=== PATIENT | female | born 1945 | race Caucasian/White ===

== ENCOUNTER 2016-12-21 09:08 | Inpatient (IN) | payer MEDICARE ==
[2016-12-21] VITALS (22 sets, daily range): BP systolic 102–183; BP diastolic 50–95; PULSE 50–62; RESP 16–20; TEMP 98.1–98.9; O2SAT 96–98
[~2016-12-21] VITALS: Ht 157.5 cm; Wt 77.9 kg
[~2016-12-21 09:08] MED LIST: ATEN-102 PO; CIPR500T4 PO; CLON0.2T PO; ENAL10 PO; MEVA40TA PO; OMEP20CA5 PO; PARO10TA PO
--- NOTE | 2016-12-21 09:25 | PD ---
HPI Chief Complaint: Chest Pain Time Seen by Provider: 09:14 Travel History International Travel<30 days: No Contact w/Intl Traveler<30days: No History of Present Illness HPI This is a 71-year-old female who presents to the emergency department with chest discomfort that started about an hour prior to arrival immediately after she heard news that she had a family member . She describes it as a tightness in the center of her chest, constant, moderate severity, nonradiating with no associated shortness of breath, nausea or diaphoresis. Patient reports her last stress test was 4-5 years ago. She does have a history of hypertension , hyperlipidemia, borderline diabetes and she has a significant smoking history. Both of her parents of heart disease at an older age. [facility] Past Medical History Arthritis: Yes Heart Rhythm Problems: No Cardiac Catheterization: No Cardiovascular Problems: Yes (DENIES) High Cholesterol: Yes Congestive Heart Failure: No Diabetes: No GERD: Yes Hypertension: Yes Menopausal: Yes Social History Alcohol Use: No Tobacco Use: No Allergies-Medications (Allergen,Severity, Reaction): Coded Allergies: No Known Allergies (Verified , 12/21/16) Reported Meds & Prescriptions Reported Meds & Active Scripts Active Reported Atenolol 50 Mg Tab 50 Mg PO DAILY Paroxetine (Paroxetine HCl) 10 Mg Tab Unknown Dose PO DAILY Lovastatin 20 Mg Tab Unknown Dose PO HS Enalapril (Enalapril Maleate) 20 Mg Tab Unknown Dose PO BID Clonidine (Clonidine HCl) 0.2 Mg Tab 0.2 Mg PO BID Omeprazole 20 Mg Tab Unknown Dose PO DAILY Review of Systems Except as stated in HPI: all other systems reviewed are Neg Physical Exam Narrative GENERAL:Well appearing, no acute distress SKIN: Focused skin assessment warm and dry. HEAD: Atraumatic. Normocephalic. EYES: Pupils equal and round. No injection or drainage. ENT: Moist mucous membranes NECK: Trachea midline. CARDIOVASCULAR: Regular rate and rhythm. No murmur appreciated. RESPIRATORY: Clear to auscultation. Breath sounds equal bilaterally. GASTROINTESTINAL: Abdomen soft, non-tender, nondistended. MUSCULOSKELETAL: No obvious deformities. NEUROLOGICAL: Awake and alert. No obvious cranial nerve deficits. Moving all extremities. PSYCHIATRIC: Appropriate mood and affect; insight and judgment normal. Data Data Last Documented VS Vital Signs Date Time Temp Pulse Resp B/P Pulse Ox O2 Delivery O2 Flow Rate FiO2 12/21/16 09:42 16 12/21/16 09:42 117/64 12/21/16 09:35 52 98 Room Air 12/21/16 09:08 98.6 Orders Electrocardiogram (12/21/16 09:22) Complete Blood Count With Diff (12/21/16 09:22) Comprehensive Metabolic Panel (12/21/16 09:22) Prothrombin Time / Inr (Pt) (12/21/16:22) Act Partial Throm Time (Ptt) (12/21/16:22) Troponin I (12/21/16 09:22) Chest, Single Ap (12/21/16:22) Ecg Monitoring (12/21/16:22) Bilateral Bp Monitoring (12/21/16:22) Iv Access Insert/Monitor (12/21/16:22) Oximetry (12/21/16:22) Oxygen Administration (12/21/16 09:22) Aspirin Chew (Aspirin Chew) (12/21/16 09:30) Sodium Chloride 0.9% Flush (Ns Flush) (12/21/16 09:30) Nitroglycerin Sl (Nitrostat Sl) (12/21/16 09:30) Enoxaparin Inj (Lovenox Inj) (12/21/16 10:45) Admit Order (Ed Use Only) (12/21/16 10:42) Labs Laboratory Tests Test 12/21/16 09:25 White Blood Count 6.8 TH/MM3 Red Blood Count 4.10 MIL/MM3 Hemoglobin 12.3 GM/DL Hematocrit 36.8 % Mean Corpuscular Volume 89.8 FL Mean Corpuscular Hemoglobin 30.0 PG Mean Corpuscular Hemoglobin 33.5 % Concent Red Cell Distribution Width 13.2 % Platelet Count 217 TH/MM3 Mean Platelet Volume 7.9 FL Neutrophils (%) (Auto) 67.4 % Lymphocytes (%) (Auto) 19.1 % Monocytes (%) (Auto) 9.7 % Eosinophils (%) (Auto) 3.1 % Basophils (%) (Auto) 0.7 % Neutrophils # (Auto) 4.6 TH/MM3 Lymphocytes # (Auto) 1.3 TH/MM3 Monocytes # (Auto) 0.7 TH/MM3 Eosinophils # (Auto) 0.2 TH/MM3 Basophils # (Auto) 0.0 TH/MM3 CBC Comment DIFF FINAL Differential Comment Prothrombin Time 10.2 SEC Prothromb Time International 0.9 RATIO Ratio Activated Partial 27.0 SEC Thromboplast Time Sodium Level 142 MEQ/L Potassium Level 4.3 MEQ/L Chloride Level 105 MEQ/L Carbon Dioxide Level 28.5 MEQ/L Anion Gap 9 MEQ/L Blood Urea Nitrogen 18 MG/DL Creatinine 0.96 MG/DL Estimat Glomerular Filtration 58 ML/MIN Rate Random Glucose 129 MG/DL Calcium Level 8.3 MG/DL Total Bilirubin 0.4 MG/DL Aspartate Amino Transf 24 U/L (AST/SGOT) Alanine Aminotransferase 27 U/L (ALT/SGPT) Alkaline Phosphatase 67 U/L Troponin I 0.23 NG/ML Total Protein 7.0 GM/DL Albumin 3.6 GM/DL [facility] Medical Decision Making Medical Screen Exam Complete: Yes Emergency Medical Condition: Yes Interpretation(s) EKG: Normal sinus rhythm with no ST changes Troponin is 0.23 Differential Diagnosis Hypertensive urgency, hypertensive emergency, nSTEMI, unstable angina, stress cardiomyopathy Narrative Course This is a 71-year-old female who presents to the emergency department with chest discomfort following finding out a family member had . She has multiple risk factors for heart disease including hyperlipidemia and hypertension as well as borderline diabetes. She was placed on a monitor and IV was established. EKG was reassuring. Labs are obtained which demonstrated troponin of 0.23. Patient was markedly hypertensive and given nitroglycerin which improved her blood pressure. Her troponin may be elevated in the setting of hypertensive emergency but this also may reflect a true nSTEMI or stress cardiomyopathy. Patient will be admitted for further cardiac management. She was given aspirin in the emergency department. I spoke to Dr. Isbell and Dr. Chan who requested that she be transferred down to the [facility] for possible catheterization. Physician Communication Physician Communication Discussed with Dr. Isbell and Dr. Chan Diagnosis Primary Impression: Hypertensive emergency Admitting Information Admitting Physician Requests: Admit Lana Macias MD Dec 21, 2016 09:25
[2016-12-21] MEDS ORDERED: ASPIRIN 81 MG CHEW TAB PO ONE (09:30)
[2016-12-21] MEDS ORDERED: SODIUM CHLORIDE 0.9% FLUSH 10 ML FLUSH IVF PRN (09:30)
[2016-12-21 09:34] LABS: AUTOMATED NEUTROPHIL # 4.6 TH/MM3 (1.8-7.7); BASOPHIL % 0.7 % (0.0-2.0); EOSINOPHIL # 0.2 TH/MM3 (0-0.4); EOSINOPHIL % 3.1 % (0.0-4.0); HEMATOCRIT 36.8 % (35.0-46.0); HEMO FLAGS DIFF FINAL; LYMPH % 19.1 % (9.0-44.0); LYMPHOCYTE # 1.3 TH/MM3 (1.0-4.8); MEAN CELL VOLUME 89.8 FL (80.0-100.0); MEAN CORPUSCULAR HGB CONC 33.5 % (32.0-36.0); MONO % 9.7 % (0.0-8.0); NEUT % 67.4 % (16.0-70.0); PLATELET COUNT 217 TH/MM3 (150-450); RED CELL DISTRIBUTION WIDTH 13.2 % (11.6-17.2); WHITE BLOOD COUNT 6.8 TH/MM3 (4.0-11.0)
[2016-12-21] MEDS: NITROGLYCERIN 0.4 MG SL 25 TABS/BTL SL SCH ×3 (09:35→09:40)
[2016-12-21] MEDS ORDERED: OMEP20TA PO (09:45)
[2016-12-21] MEDS ORDERED: CLON0.2T PO (09:45)
[2016-12-21] MEDS ORDERED: ATEN50TA PO (09:45)
[2016-12-21] MEDS ORDERED: PARO10TA2 PO (09:45)
[2016-12-21] MEDS ORDERED: ENAL20TA PO (09:45)
[2016-12-21] MEDS ORDERED: LOVA20TA PO (09:45)
[2016-12-21 09:51] LABS: INTERNATIONAL NORMALIZED RATIO 0.9 RATIO; PROTHROMBIN TIME - PATIENT 10.2 SEC (9.8-11.6)
--- NOTE | 2016-12-21 10:05 | RADHPO ---
EXAM DATE/TIME: 12/21/2016 09:34 [place] COMPARISON: CHEST SINGLE AP, February 18, 2012, 17:21. INDICATIONS : Sudden onset of chest pain today MEDICAL HISTORY : Hypertension. SURGICAL HISTORY : None. ENCOUNTER: Initial ACUITY: 1 day PAIN SCORE: 8/10 LOCATION: Bilateral chest FINDINGS: The lungs are under aerated with minimal bibasilar parenchymal changes. The heart and pulmonary vascu larity are normal. The portion of the bony skeleton visualized is unremarkable. CONCLUSION: Under aerated otherwise negative. Logan Morel MD FACR on December 21, 2016 at 10:02 Board Certified Radiologist. This report was verified electronically.
[2016-12-21 10:15] LABS: CHLORIDE 105 MEQ/L (98-107); POTASSIUM 4.3 MEQ/L (3.5-5.1); SODIUM (NA) 142 MEQ/L (136-145)
[2016-12-21 10:21] LABS: ANION GAP 9 MEQ/L (5-15); BICARBONATE 28.5 MEQ/L (21.0-32.0); BLOOD UREA NITROGEN 18 MG/DL (7-18)
[2016-12-21 10:24] LABS: ALT (GPT) 27 U/L (10-53); AST (GOT) 24 U/L (15-37)
[2016-12-21 10:25] LABS: GLOMERULAR FILTRATION RATE 58 ML/MIN (>89); TOTAL BILIRUBIN ADULT 0.4 MG/DL (0.2-1.0)
[2016-12-21 10:27] LABS: ALKALINE PHOSPHATASE 67 U/L (45-117)
[2016-12-21] MEDS ORDERED: SODIUM CHLORIDE 0.9% FLUSH 10 ML FLUSH IV FLUSH PRN (10:45)
[2016-12-21] MEDS ORDERED: NITROGLYCERIN 0.4 MG SL 25 TABS/BTL SL PRN (10:45)
[2016-12-21] MEDS ORDERED: DEXTROSE 50% IN WATER 50 ML VIAL(D50) IV PUSH PRN ×2 (10:45→16:00)
[2016-12-21] MEDS ORDERED: GLUCAGON 1 MG/ML VIAL OTHER PRN ×2 (10:45→16:00)
[2016-12-21] MEDS ORDERED: ENOXAPARIN SODIUM 80 MG/0.8 ML SYRINGE SQ ONE (10:45)
[2016-12-21] MEDS ORDERED: INSULIN ASPART SUPPLEMENTAL SCALE SQ SCH (11:00)
[2016-12-21] MEDS ORDERED: MORPHINE SULFATE 4 MG/ML INJ IV PRN (11:00)
--- NOTE | 2016-12-21 15:20 | MB ---
cc: WDAE LICEA M.D. DATE OF CONSULTATION: 12/21/2016 REASON FOR CONSULTATION Angina. HISTORY OF PRESENT ILLNESS Mrs. White is a 71-year-old female with a history of high blood pressure, hyperlipidemia, she has a previous hospitalization in 2011 due to chest pain, nuclear stress study at that time was negative for ischemia. 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 Refers some shortness of breath and chest tightness in the past. She received the news of her Godmother passing away. She was having chest tightness and shortness of breath. She was admitted to the emergency room. Troponin was 0.23. I was consulted for further evaluation and management. The chart was reviewed. The patient was evaluated. ALLERGIES NONE REPORTED. SOCIAL HISTORY The patient stopped smoking 14 years ago. FAMILY HISTORY Noncontributory to her current medical condition. MEDICATIONS 1. Atenolol 10 mg a day. 2. Paroxetine 10 mg a day. 3. Lovastatin 20 mg a day. 4. Enalapril 20 mg twice a day. 5. Clonidine. 6. Omeprazole. REVIEW OF SYSTEMS Currently she refer no chest pain, no chest discomfort, no shortness of breath, no fever. PHYSICAL EXAMINATION GENERAL: Alert, fully oriented. She is very calm at this point. VITAL SIGNS: Blood pressure 134/71, on admission blood pressure was 182/72, pulse 58, respiratory rate 18. LUNGS: Ventilated. CARDIOVASCULAR: S1, S2. No gallop, no murmur. ABDOMEN: Soft. No mass. No bruit. EXTREMITIES: No edema. Electrocardiogram: Sinus rhythm. No acute ST and T-wave changes. LABORATORY DATA Potassium 4.3, creatinine 0.96, troponin 0.23, INR 0.9, hemoglobin 12.3. ASSESSMENT AND RECOMMENDATIONS Mrs. White has apparent angina. She has previous shortness of breath and chest discomfort at home on activity. She has a history of high blood pressure, hyperlipidemia, she is morbidly obese. There are no acute ST changes. At this point, I am going to wait for the next set of troponins. If there is no significant increase in troponin, then she will need a nuclear stress test in the morning. Case extensively discussed with her. MD ROHINI Chaves/BJF /1:25 PM /3:04 PM
[2016-12-21] MEDS: INSULIN NovoLIN REGULAR SUPPLEMENTAL SCALE SQ SCH ×2 (16:00→20:22)
[2016-12-21] MEDS ORDERED: ATENOLOL 50 MG TAB PO SCH (16:00)
--- NOTE | 2016-12-21 16:04 | HHI.HP ---
[facility] Shira Draper MD Admission Diagnosis hypertensive emergency Diagnoses: Chief Complaint: Chest pain Travel History International Travel<30 Days: No Contact w/Intl Traveler <30 Da: No Traveled to Known Affected Are: No History of Present Illness 71 years old female presented to the [place] ED with a complaint of chest pain/tightness which is central 8-9 out of 10, constant, did not until improved until patient had nitroglycerin. No nausea or vomiting lightheaded short of breath or diaphoresis. Patient attributed this to a stressful event when she know about a in the family. No radiation no alleviating or exacerbating factor. In ED she was found to have a blood pressure of 183/72. Patient has history of hyperlipidemia hypertension and diet-controlled diabetes mellitus (she refused to be placed on medication by her PCP) patient denied any orthopnea PND, abdominal pain diarrhea constipation . Patient had a stress test in 2011 in January which showed no significant reversibility with EF 68%, however the Tab wrote a call part was not completed due to not reaching maximum heart rate Review of Systems All 10 systems reviewed and was positive for what is mentioned in history of present illness otherwise negative Past Family Social History Past Medical History Hypertension Hyperlipidemia Diabetes mellitus diet control Allergies: Coded Allergies: No Known Allergies (Verified , 12/21/16) Family History Mother and father had coronary artery disease heart hacker father had it in his 70s her mom had congestive heart failure Social History Quit smoking around 6 years ago before that she smoked 2 pack for over 30 years , no alcohol or illicit drug abuse Physical Exam Vital Signs Vital Signs Date Time Temp Pulse Resp B/P Pulse Ox O2 Delivery O2 Flow Rate FiO2 12/21/16 15:36 158/95 12/21/16 15:35 98.6 58 17 174/86 96 12/21/16 14:35 58 12/21/16 13:30 59 12/21/16 13:04 98.9 58 19 134/71 96 12/21/16 12:10 52 16 165/76 96 12/21/16 10:40 53 16 168/76 97 Room Air 12/21/16 09:42 16 12/21/16 09:42 117/64 12/21/16 09:35 52 16 183/72 98 Room Air 171/81 12/21/16 09:08 98 Room Air 12/21/16 09:08 16 98 Room Air 12/21/16 09:08 98.6 53 16 183/72 98 12/21/16 09:08 Room Air Physical Exam GENERAL: This is a well-nourished, well-developed patient, in no apparent distress. SKIN: No rashes, warm and dry HEAD: Atraumatic. Normocephalic. EYES: Pupils equal round and reactive. Extraocular motions intact. No scleral icterus. ENT: Nose without bleeding, or drainage, Airway patent. NECK: Trachea midline. Supple CARDIOVASCULAR: Regular rate and rhythm without murmurs, gallops, or rubs. RESPIRATORY: Fair air entry bilaterally. No wheezes, rales, or rhonchi. GASTROINTESTINAL: Abdomen soft, non-tender, nondistended. Positive bowel sounds MUSCULOSKELETAL: Extremities without clubbing, cyanosis, or edema. Pedal pulses appreciated NEUROLOGICAL: Awake and alert. Moves all extremity. Normal speech.no focal neurological deficit Laboratory Laboratory Tests Test 12/21/16 09:25 White Blood Count 6.8 Red Blood Count 4.10 Hemoglobin 12.3 Hematocrit 36.8 Mean Corpuscular Volume 89.8 Mean Corpuscular Hemoglobin 30.0 Mean Corpuscular Hemoglobin 33.5 Concent Red Cell Distribution Width 13.2 Platelet Count 217 Mean Platelet Volume 7.9 Neutrophils (%) (Auto) 67.4 Lymphocytes (%) (Auto) 19.1 Monocytes (%) (Auto) 9.7 Eosinophils (%) (Auto) 3.1 Basophils (%) (Auto) 0.7 Neutrophils # (Auto) 4.6 Lymphocytes # (Auto) 1.3 Monocytes # (Auto) 0.7 Eosinophils # (Auto) 0.2 Basophils # (Auto) 0.0 CBC Comment DIFF FINAL Differential Comment Prothrombin Time 10.2 Prothromb Time International 0.9 Ratio Activated Partial 27.0 Thromboplast Time Sodium Level 142 Potassium Level 4.3 Chloride Level 105 Carbon Dioxide Level 28.5 Anion Gap 9 Blood Urea Nitrogen 18 Creatinine 0.96 Estimat Glomerular Filtration 58 Rate Random Glucose 129 Calcium Level 8.3 Total Bilirubin 0.4 Aspartate Amino Transf 24 (AST/SGOT) Alanine Aminotransferase 27 (ALT/SGPT) Alkaline Phosphatase 67 Troponin I 0.23 Total Protein 7.0 Albumin 3.6 Result Diagram: 12/21/1692412/21/16924 Imaging Last Impressions Chest X-Ray 12/21/16921 Signed Impressions: Service Date/Time: Wednesday, December 21, 2016 09:34 - CONCLUSION: Under aerated otherwise negative. Logan Morel MD FACR EKG with sinus rhythm first-degree AV block borderline, nonspecific ST changes Assessment and Plan Assessment and Plan 71 years old female presented to the ED after having a stressful that family event with Hypertensive urgency: Relatively improved Acute atypical chest pain rule out ACS versus due to above History of HTN History of hyperlipidemia Diabetes mellitus diet controlled DVT prophylaxis Plan: Admitted to inpatient, cardiology consulted, requested transfer to [facility] Aspirin given, nitroglycerin sublingual Cycle cardiac enzyme 3 times first set 0.23 Personally reviewed EKG as above no ST changes significant Lovenox full anticoagulation Dr. Soria embedded systems developer following ISS and Accu-Chek, will check A1c Resume home meds for hypertension include clonidine, enalapril, add hydralazine when necessary, hold atenolol due to bradycardia in the 50s Physician Certification 2 Midnight Certification Type: Admission for Inpatient Services Order for Inpatient Services The services are ordered in accordance with Medicare regulations or non- Medicare payer requirements, as applicable. In the case of services not specified as inpatient-only, they are appropriately provided as inpatient services in accordance with the 2-midnight benchmark. Estimated LOS (days): 2 days is the estimated time the patient will need to remain in the hospital, assuming treatment plan goals are met and no additional complications. Post-Hospital Plan: Not yet determined Bri De Jesus MD Dec 21, 2016 16:04
[2016-12-21] MEDS ORDERED: hydrALAZINE HCL 20 MG/ML VIAL IV PUSH PRN (16:15)
[2016-12-21] MEDS: cloNIDine HCL 0.2 MG TAB PO SCH ×2 (16:18→19:49)
[2016-12-21] MEDS: ENALAPRIL MALEATE 5 MG TAB PO SCH ×2 (16:18→19:50)
[2016-12-21 17:05] LABS: CKMB 13.8 NG/ML (0.5-3.6)
[2016-12-21] MEDS ORDERED: NITROGLYCERIN/DEXTROSE 5% 250 ML for chest pain IV SCH (17:45)
[2016-12-21] MEDS: SODIUM CHLORIDE 0.9% FLUSH 10 ML FLUSH IV FLUSH SCH (19:50)
[2016-12-21] MEDS: ATORVASTATIN 40 MG TAB PO SCH (19:50)
[2016-12-21] MEDS: ALPRAZolam 0.25 MG TAB PO PRN (20:22)
[2016-12-21] MEDS: ENOXAPARIN SODIUM 100 MG/ML SYRINGE SQ SCH (20:22)
[2016-12-21] MEDS ORDERED: cloNIDine HCL 0.2 MG TAB PO SCH (21:00)
[2016-12-21] MEDS ORDERED: ENALAPRIL MALEATE 5 MG TAB PO SCH (21:00)
[2016-12-21 22:18] LABS: CREATINE KINASE 180 U/L (26-192)
[2016-12-21 22:37] LABS: CKMB 7.8 NG/ML (0.5-3.6)
--- NOTE | 2016-12-21 23:56 | EKG ---
Date Performed: 12/21/2016 Time Performed: 15:53:12 PTAGE: 71 years EKG: Sinus bradycardia with 1st degree A-V block. Abnormal ECG PREVIOUS TRACING : 12/21/2016 09.10 DOCTOR: Jaime Chan Interpretating Date/Time 12/21/2016 23:55:45
[2016-12-22] VITALS (24 sets, daily range): BP systolic 114–140; BP diastolic 57–81; PULSE 48–61; RESP 16–20; TEMP 97.9–98.6; O2SAT 95–97
--- NOTE | 2016-12-22 00:11 | EKG ---
Date Performed: 12/21/2016 Time Performed: 09:10:06 PTAGE: 71 years EKG: Sinus bradycardia with borderline 1st degree A-V block. Septal ST-T changes are nonspecific Borderline ECG PREVIOUS TRACING : 02/19/2012 03.51 DOCTOR: Jaime Chan Interpretating Date/Time 12/22/2016 00:09:03
[2016-12-22] MEDS: INSULIN NovoLIN REGULAR SUPPLEMENTAL SCALE SQ SCH ×4 (06:42→20:19)
[2016-12-22 07:02] LABS: AUTOMATED NEUTROPHIL # 3.2 TH/MM3 (1.8-7.7); BASOPHIL % 0.5 % (0.0-2.0); EOSINOPHIL # 0.2 TH/MM3 (0-0.4); EOSINOPHIL % 3.4 % (0.0-4.0); HEMATOCRIT 34.9 % (35.0-46.0); HEMO FLAGS DIFF FINAL; LYMPH % 30.3 % (9.0-44.0); LYMPHOCYTE # 1.7 TH/MM3 (1.0-4.8); MEAN CELL VOLUME 89.9 FL (80.0-100.0); MEAN CORPUSCULAR HEMOGLOBIN 29.7 PG (27.0-34.0); MEAN CORPUSCULAR HGB CONC 33.1 % (32.0-36.0); MONO % 9.3 % (0.0-8.0); NEUT % 56.5 % (16.0-70.0); PLATELET COUNT 191 TH/MM3 (150-450); RED BLOOD COUNT 3.88 MIL/MM3 (4.00-5.30); RED CELL DISTRIBUTION WIDTH 13.9 % (11.6-17.2); WHITE BLOOD COUNT 5.6 TH/MM3 (4.0-11.0)
[2016-12-22 07:09] LABS: BICARBONATE 29.2 MEQ/L (21.0-32.0); POTASSIUM 4.1 MEQ/L (3.5-5.1)
[2016-12-22 07:10] LABS: HDL CHOLESTEROL 39.4 MG/DL (40.0-60.0)
[2016-12-22] MEDS: SODIUM CHLORIDE 0.9% FLUSH 10 ML FLUSH IV FLUSH SCH ×2 (08:40→20:18)
[2016-12-22] MEDS: ENALAPRIL MALEATE 5 MG TAB PO SCH ×2 (08:40→20:18)
[2016-12-22] MEDS: cloNIDine HCL 0.2 MG TAB PO SCH ×2 (08:40→20:18)
[2016-12-22] MEDS ORDERED: ASPIRIN EC 325 MG TABEC PO SCH (09:00)
[2016-12-22] MEDS ORDERED: ATENOLOL 50 MG TAB PO SCH (09:00)
[2016-12-22] MEDS ORDERED: INFLUENZA VIRUS VACCINE (QUADRIVALENT) 0.5 ML SYR IM ONE (10:00)
[2016-12-22] MEDS: ENOXAPARIN SODIUM 100 MG/ML SYRINGE SQ SCH ×2 (11:18→20:18)
[2016-12-22 11:23] LABS: HEMOGLOBIN A1b 1.1 %; HEMOGLOBIN Ao 84.4 %; HEMOGLOBIN LA1C 1.7 %; HEMOGLOBIN P3 3.8 %
--- NOTE | 2016-12-22 13:03 | HHI.PR ---
Subjective Remarks No chest pain Objective Vital Signs Date Time Temp Pulse Resp B/P Pulse Ox O2 Delivery O2 Flow Rate FiO2 12/22/16 12:00 54 12/22/16 11:00 56 12/22/16 11:00 97.9 55 16 127/72 97 12/22/16 10:00 48 12/22/16 09:00 50 12/22/16 08:00 50 12/22/16 07:15 98.3 52 17 140/81 96 12/22/16 07:00 96 Room Air 12/22/16 07:00 51 12/22/16 06:00 55 12/22/16 05:00 53 12/22/16 04:00 54 12/22/16 04:00 Room Air 12/22/16 04:00 98.1 54 18 133/64 97 12/22/16 03:00 54 12/22/16 02:00 55 12/22/16 01:00 54 12/22/16 00:00 Room Air 12/22/16 00:00 48 12/22/16 00:00 98.6 48 20 124/64 97 12/21/16 23:00 50 12/21/16 22:00 51 12/21/16 21:00 52 12/21/16 20:00 98.1 56 20 132/70 96 12/21/16 20:00 56 12/21/16 18:37 141/62 12/21/16 18:17 58 12/21/16 18:07 52 12/21/16 18:06 102/51 12/21/16 17:53 111/50 12/21/16 17:29 53 12/21/16 16:10 62 12/21/16 15:36 158/95 12/21/16 15:35 98.6 58 17 174/86 96 12/21/16 15:00 55 12/21/16 14:35 58 12/21/16 13:30 59 12/21/16 13:04 98.9 58 19 134/71 96 I/O 12/21/16 12/21/16 12/21/16 12/22/16 12/22/16 12/22/16 07:00 15:00 23:00 07:00 15:00 23:00 Intake Total 480 ml 255 ml 0 ml Output Total 600 ml Balance 480 ml -345 ml 0 ml Intake Oral 480 ml 240 ml 0 ml IV Total 15 ml Output Urine Total 600 ml # Voids 2 # Bowel Movements 0 Result Diagram: 12/22/16 0544 12/22/16 0544 Imaging Alert, fully oriented Lungs: ventilated Heart: S1, S2 regular abdomen: soft, no mass Ext: no edema Last Impressions Chest X-Ray 12/21/16 0922 Signed Impressions: Service Date/Time: Wednesday, December 21, 2016 09:34 - CONCLUSION: Under aerated otherwise negative. Logan Morel MD FACR Current Medications Medications (Trade) Dose Ordered Sig/Rey Route Start Time Stop Time Status Last Admin (NS Flush) 2 ml BID IV FLUSH 12/21/16 21:00 12/22/16 08:40 (NS Flush) 2 ml UNSCH PRN IV FLUSH 12/21/16 10:45 (Lovenox Inj) 75 mg Q12H SQ 12/21/16 22:00 12/22/16 11:18 (Nitrostat Sl) 0.4 mg Q5M PRN SL 12/21/16 10:45 (Morphine Inj) 2 mg Q30M PRN IV 12/21/16 11:00 (Xanax) 0.25 mg Q8HR PRN PO 12/21/16 11:00 12/21/16 20:22 (Lipitor) 40 mg HS PO 12/21/16 21:00 12/21/16 19:50 (Tenormin) 50 mg DAILY PO 12/21/16 16:00 Hold (Catapres) 0.2 mg BID PO 12/21/16 15:45 12/22/16 08:40 (Vasotec) 5 mg BID PO 12/21/16 15:45 12/22/16 08:40 (D50w (Vial) Inj) 25 ml UNSCH PRN IV PUSH 12/21/16 16:00 (Glucagon Inj) 1 mg UNSCH PRN OTHER 12/21/16 16:00 Hydralazine HCl 10 mg 10 mg Q6H PRN IV PUSH 12/21/16 16:15 (Nitroglycerin-Dextrose Inj) 250 ml @ 0 mls/hr TITRATE IV 12/21/16 17:45 12/21/16 17:49 (Aspirin Chew) 81 mg DAILY CHEW 12/23/16 09:00 Assessment and Plan Problem List: (1) Hypertensive emergency Status: Acute Plan: SBP 126. Control On IV nitro (2) IA, acute, non ST segment elevation Status: Acute Plan: No chest pain today. Troponin increased to over 6.5. Case discussed yesterday with Dr Child who recommended nitro IV. He has been consulted. Patient stable. [facility] tomorrow Case discussed with patient also Jaime Chan MD Dec 22, 2016 13:03
--- NOTE | 2016-12-22 14:02 | HHI.PR ---
Subjective Remarks Resting in bed no chest anal short of breath Troponin increased significantly to 6 Patient seen by system operation superintendent plan for left heart catheter tomorrow Objective Vitals Vital Signs Date Time Temp Pulse Resp B/P Pulse Ox O2 Delivery O2 Flow Rate FiO2 12/22/16 13:00 55 12/22/16 12:00 54 12/22/16 11:00 56 12/22/16 11:00 97.9 55 16 127/72 97 12/22/16 10:00 48 12/22/16 09:00 50 12/22/16 08:00 50 12/22/16 07:15 98.3 52 17 140/81 96 12/22/16 07:00 96 Room Air 12/22/16 07:00 51 12/22/16 06:00 55 12/22/16 05:00 53 12/22/16 04:00 54 12/22/16 04:00 Room Air 12/22/16 04:00 98.1 54 18 133/64 97 12/22/16 03:00 54 12/22/16 02:00 55 12/22/16 01:00 54 12/22/16 00:00 Room Air 12/22/16 00:00 48 12/22/16 00:00 98.6 48 20 124/64 97 12/21/16 23:00 50 12/21/16 22:00 51 12/21/16 21:00 52 12/21/16 20:00 98.1 56 20 132/70 96 12/21/16 20:00 56 12/21/16 18:37 141/62 12/21/16 18:17 58 12/21/16 18:07 52 12/21/16 18:06 102/51 12/21/16 17:53 111/50 12/21/16 17:29 53 12/21/16 16:10 62 12/21/16 15:36 158/95 12/21/16 15:35 98.6 58 17 174/86 96 12/21/16 15:00 55 12/21/16 14:35 58 I/O 12/21/16 12/21/16 12/21/16 12/22/16 12/22/16 12/22/16 07:00 15:00 23:00 07:00 15:00 23:00 Intake Total 480 ml 255 ml 0 ml Output Total 600 ml Balance 480 ml -345 ml 0 ml Intake Oral 480 ml 240 ml 0 ml IV Total 15 ml Output Urine Total 600 ml # Voids 2 # Bowel Movements 0 Result Diagram: 12/22/1654312/22/16543 Objective Remarks GENERAL: This is a well-nourished, well-developed patient, in no apparent distress. SKIN: No rashes, warm and dry HEAD: Atraumatic. Normocephalic. EYES: Pupils equal round and reactive. Extraocular motions intact. No scleral icterus. ENT: Nose without bleeding, or drainage, Airway patent. NECK: Trachea midline. Supple CARDIOVASCULAR: Regular rate and rhythm without murmurs, gallops, or rubs. RESPIRATORY: Fair air entry bilaterally. No wheezes, rales, or rhonchi. GASTROINTESTINAL: Abdomen soft, non-tender, nondistended. Positive bowel sounds MUSCULOSKELETAL: Extremities without clubbing, cyanosis, or edema. Pedal pulses appreciated NEUROLOGICAL: Awake and alert. Moves all extremity. Normal speech.no focal neurological deficit A/P Assessment and Plan 71 years old female presented to the ED after having a stressful that family event with Hypertensive urgency: Resolved Non-STEMI with elevated troponin History of HTN History of hyperlipidemia Diabetes mellitus diet controlled DVT prophylaxis Plan: Cycle cardiac enzyme 3 times : 0.23>>6.03>>2.35 Appreciated cardiology consult, requested transfer to [facility] Dr. Soria system operation superintendent following he discuss with Dr. Child plan for left heart catheter in a.m. Aspirin given, nitroglycerin sublingual Personally reviewed EKG as above no ST changes significant Lovenox full anticoagulation ISS and Accu-Chek, will check A1c Resume home meds for hypertension include clonidine, enalapril, add hydralazine when necessary, hold atenolol due to bradycardia in the 50s Bri De Jesus MD Dec 22, 2016 14:02
[2016-12-22] MEDS: ATORVASTATIN 40 MG TAB PO SCH (20:18)
[2016-12-22] MEDS: ALPRAZolam 0.25 MG TAB PO PRN (20:18)
[2016-12-23] VITALS (23 sets, daily range): BP systolic 113–152; BP diastolic 57–84; PULSE 51–75; RESP 18; TEMP 97.6–98.2; O2SAT 95–98
--- NOTE | 2016-12-23 05:50 | MB ---
cc: CORY REZA SAMIRA MD DATE OF CONSULTATION December 22, 2016 PRIMARY CARE PHYSICIAN Shira Draper MD REASON FOR INTERVENTIONAL CARDIOLOGY CONSULTATION N-STEMI, for consideration of cardiac catheterization. HISTORY OF PRESENT ILLNESS Sybil White is a pleasant 71-year-old female who originally presented to [facility] Emergency Room with a complaint of chest pain and tightness. At that time the pain was 8 out of 10 and constant. The patient was given one nitroglycerin and this started relieving the pain. She denies nausea, vomiting, lightheadedness, shortness of breath or diaphoresis with the episode. She attributed the chest pain to undergoing a stressful event as she recently had a in the family. On arrival to the emergency room, she was found to have a blood pressure of 183/72. She was admitted with hypertensive urgency. Firs troponin was 0.23 and then this increased to 6.03 before decreasing back to 2.93. Because of the elevation of the troponins and the patient's chest pain, I was asked for consideration of cardiac catheterization. PAST MEDICAL HISTORY 1. Hypertension. 2. Hyperlipidemia. 3. Diabetes mellitus, diet controlled. PAST SURGICAL HISTORY Denies. ALLERGIES No known drug allergies. MEDICATIONS 1. Enalapril 20 mg b.i.d. 2. Paroxetine 10 mg daily 3. Atenolol 50 mg daily 4. Clonidine 0.2 mg b.i.d. 5. Lovastatin 20 mg every night 6. Omeprazole 20 mg daily. SOCIAL HISTORY The patient previously smoked but quit around 6 years ago. Before that she smoke two packs a day for 30 years. She denies alcohol or illicit drug abuse. FAMILY HISTORY Mother and father had coronary artery disease. Father had a heart attack in his 70s and her mother had a history of congestive heart failure. REVIEW OF SYSTEMS Fourteen systems were reviewed including osteopathic pertinent positives and negatives above, otherwise negative. PHYSICAL EXAMINATION VITAL SIGNS: Temperature 97.8, heart rate 54, blood pressure 127/72, respirations 16, pulse ox 97% on room air. IN GENERAL: The patient appears well, in no acute distress, alert awake and oriented x 3. Extraocular muscles intact. Mucous membranes moist. NECK: Supple. No JVD at 45 degrees. No carotid bruits heard bilaterally. Carotid upstroke is brisk in nature. HEART: Regular in rate and rhythm. Positive first and second heart sounds with no noted murmurs, gallops or rubs. PMI is nondisplaced. LUNGS: Clear to auscultation bilaterally. No wheezes, rales or rhonchi. ABDOMEN: Soft, nontender, nondistended. No organomegaly noted. EXTREMITIES: No clubbing, cyanosis or edema. Femoral and distal pulses intact bilaterally. NEUROLOGIC: No focal deficits. SKIN: Warm, dry and intact. OSTEOPATHIC EXAM: No kyphoscoliosis, lordosis or paraspinal tender points. LABORATORY FINDINGS Hemoglobin 11.6, hematocrit 34.9, platelets 191. Potassium 4.1, BUN 14, creatinine 0.84. Hemoglobin A1c 6.4. Troponin increasing to 6.03. Total cholesterol 144, LDL 81, HDL 39.4, triglycerides 105. ELECTROCARDIOGRAM (December 21, 2016 at 15:53) Sinus bradycardia with first degree AV block, nonspecific ST and T-wave changes. IMPRESSION 1. NSTEMI. Possible Type 1 versus Type 2. 2. Hypertensive urgency. 3. Chronic hypertensive heart disease. 4. History of hyperlipidemia. 5. History of diabetes mellitus which is diet-controlled. 6. Remote history of tobacco abuse. RECOMMENDATIONS 1. Ms. White appears to have an elevation of her troponin and although this may be secondary to hypertensive urgency, my concern is with the significance of the elevation as well as her chest pain. Because of this, I feel that we should rule out underlying coronary artery disease. 2. We will plan for cardiac catheterization in the morning. She will be left n.p.o. after midnight. 3. The risks, benefits and alternatives were explained to her and she consents as such. 4. We will check a 2-D echo to look at her overall left ventricular function, cardiac structure and possible valvopathies. 5. Further recommendations will be made after coronary visualization. Thank you for allowing me to see Sybil White. If there are any questions, please do not hesitate to call. Cory Reza DO VGP/SSB /12:49 PM /5:35 AM
[2016-12-23] MEDS: INSULIN NovoLIN REGULAR SUPPLEMENTAL SCALE SQ SCH ×4 (06:10→20:31)
[2016-12-23 06:20] LABS: AUTOMATED NEUTROPHIL # 3.7 TH/MM3 (1.8-7.7); BASOPHIL % 0.6 % (0.0-2.0); EOSINOPHIL # 0.3 TH/MM3 (0-0.4); EOSINOPHIL % 4.4 % (0.0-4.0); HEMATOCRIT 36.7 % (35.0-46.0); HEMO FLAGS DIFF FINAL; LYMPH % 25.6 % (9.0-44.0); LYMPHOCYTE # 1.6 TH/MM3 (1.0-4.8); MEAN CORPUSCULAR HEMOGLOBIN 29.4 PG (27.0-34.0); MEAN CORPUSCULAR HGB CONC 32.6 % (32.0-36.0); MONO % 9.3 % (0.0-8.0); NEUT % 60.1 % (16.0-70.0); PLATELET COUNT 197 TH/MM3 (150-450); RED BLOOD COUNT 4.08 MIL/MM3 (4.00-5.30); WHITE BLOOD COUNT 6.1 TH/MM3 (4.0-11.0)
[2016-12-23 06:45] LABS: BICARBONATE 29.6 MEQ/L (21.0-32.0)
[2016-12-23] MEDS: SODIUM CHLORIDE 0.9% FLUSH 10 ML FLUSH IV FLUSH SCH ×2 (07:15→20:31)
[2016-12-23] MEDS ORDERED: IOHEXOL 350 MG/ML 100 ML BTL (for Cath Lab) OTHER ONE (08:18)
[2016-12-23] MEDS ORDERED: HEPARIN-NS/PF INJ 500 ML ONE (08:21)
[2016-12-23] MEDS ORDERED: VERAPAMIL HCL 5 MG/2 ML VIAL ONE (08:36)
[2016-12-23] MEDS ORDERED: MIDAZOLAM HCL 2 MG/2 ML VIAL ONE (08:36)
[2016-12-23] MEDS ORDERED: HEPARIN SODIUM - IV 10,000 UNITS/10 ML VIAL ONE (08:37)
[2016-12-23] MEDS ORDERED: NITROGLYCERIN INJ 5 ML ONE (08:37)
[2016-12-23] MEDS ORDERED: ADENOSINE STRESS TEST INJ 90 MG/30 ML VIAL ONE (09:27)
[2016-12-23] MEDS ORDERED: hydrALAZINE HCL 20 MG/ML VIAL ONE (09:36)
[2016-12-23] MEDS ORDERED: NITROGLYCERIN 0.4 MG SL 25 TABS/BTL SL ONE (09:51)
[2016-12-23] MEDS: ENOXAPARIN SODIUM 100 MG/ML SYRINGE SQ SCH ×2 (10:00→20:30)
[2016-12-23] MEDS: ASPIRIN 81 MG CHEW TAB CHEW SCH (10:16)
[2016-12-23] MEDS: cloNIDine HCL 0.2 MG TAB PO SCH ×2 (10:16→20:29)
[2016-12-23] MEDS: ENALAPRIL MALEATE 5 MG TAB PO SCH (10:16)
--- NOTE | 2016-12-23 12:11 | PD.CONS ---
History of Present Illness Service CT Surgery Consult Requested By Dr. Child Reason for Consult NSTEMI, multivessel CAD Primary Care Physician Shira Draper MD Diagnoses: (1) DC, acute, non ST segment elevation (2) CAD (coronary artery disease) History of Present Illness 71 y/o female presents with malignant hypertension, chest tightness, dyspnea. She ruled in for NSTEMI. She had a negative stress test in the past, but was found tohave multivessel CAD today on [facility]. She is being considered for CABG. She denies PND, orthopnea, syncope, palpitations. Review of Systems Constitutional: COMPLAINS OF: Diaphoretic episodes, Fatigue, DENIES: Fever, Weight gain, Weight loss, Chills, Dizziness, Change in appetite, Night Sweats Endocrine: DENIES: Abnorml menstrual pattern, Heat/cold intolerance, Polydipsia , Polyuria, Polyphagia Eyes: DENIES: Blurred vision, Diplopia, Eye inflammation, Eye pain, Vision loss , Photosensitivity, Double Vision Ears, nose, mouth, throat: DENIES: Tinnitus, Hearing loss, Vertigo, Nasal discharge, Oral lesions, Throat pain, Hoarseness, Ear Pain, Running Nose, Epistaxis, Sinus Pain, Toothache, Odynophagia Respiratory: COMPLAINS OF: Cough, DENIES: Apneas, Snoring, Wheezing, Hemoptysis, Sputum production, Shortness of breath Cardiovascular: COMPLAINS OF: Chest pain, Dyspnea on Exertion, DENIES: Palpitations, Syncope, PND, Lower Extremity Edema, Orthopnea, Claudication Gastrointestinal: DENIES: Abdominal pain, Black stools, Bloody stools, Constipation, Diarrhea, Nausea, Vomiting, Difficulty Swallowing, Anorexia Genitourinary: DENIES: Abnormal vaginal bleeding, Dysmenorrhea, Dyspareunia, Sexual dysfunction, Urinary frequency, Urinary incontinence, Urgency, Hematuria , Dysuria, Nocturia, Vaginal discharge Musculoskeletal: COMPLAINS OF: Joint pain, Muscle aches, DENIES: Stiffness, Joint Swelling, Back pain, Neck pain Integumentary: DENIES: Abnormal pigmentation, Pruritus, Rash, Nail changes, Breast masses, Breast skin changes, Nipple discharge Hematologic/lymphatic: DENIES: Bruising, Lymphadenopathy Immunologic/allergic: DENIES: Eczema, Urticaria Neurologic: DENIES: Abnormal gait, Headache, Localized weakness, Paresthesias, Seizures, Speech Problems, Tremor, Poor Balance Psychiatric: DENIES: Anxiety, Confusion, Mood changes, Depression, Hallucinations, Agitation, Suicidal Ideation, Homicidal Ideation, Delusions Except as stated in HPI: all other systems reviewed are Neg Past Family Social History Allergies: Coded Allergies: No Known Allergies (Verified , 12/21/16) Past Medical History Past Medical History Hypertension Hyperlipidemia Diabetes mellitus diet control Family History Mother and father had coronary artery disease heart hacker father had it in his 70s her mom had congestive heart failure Social History Quit smoking around 6 years ago before that she smoked 2 pack for over 30 years , no alcohol or illicit drug abuse Active Ordered Medications Current Medications Medications (Trade) Dose Ordered Sig/Rey Route Start Time Stop Time Status Last Admin (NS Flush) 2 ml BID IV FLUSH 12/21/16 21:00 12/23/16 07:15 (NS Flush) 2 ml UNSCH PRN IV FLUSH 12/21/16 10:45 (Lovenox Inj) 75 mg Q12H SQ 12/21/16 22:00 12/22/16 20:18 (Nitrostat Sl) 0.4 mg Q5M PRN SL 12/21/16 10:45 (Morphine Inj) 2 mg Q30M PRN IV 12/21/16 11:00 (Xanax) 0.25 mg Q8HR PRN PO 12/21/16 11:00 12/22/16 20:18 (Lipitor) 40 mg HS PO 12/21/16 21:00 12/22/16 20:18 (Tenormin) 50 mg DAILY PO 12/21/16 16:00 Hold (Catapres) 0.2 mg BID PO 12/21/16 15:45 12/23/16 10:16 (Vasotec) 5 mg BID PO 12/21/16 15:45 12/23/16 10:16 (D50w (Vial) Inj) 25 ml UNSCH PRN IV PUSH 12/21/16 16:00 (Glucagon Inj) 1 mg UNSCH PRN OTHER 12/21/16 16:00 Hydralazine HCl 10 mg 10 mg Q6H PRN IV PUSH 12/21/16 16:15 (Nitroglycerin-Dextrose Inj) 250 ml @ 0 mls/hr TITRATE IV 12/21/16 17:45 12/21/16 17:49 (Aspirin Chew) 81 mg DAILY CHEW 12/23/16 09:00 12/23/16 10:16 (NS Flush) 2 ml BID IV FLUSH 12/23/16 21:00 Physical Exam Vital Signs Vital Signs Date Time Temp Pulse Resp B/P Pulse Ox O2 Delivery O2 Flow Rate FiO2 12/23/16 10:30 67 12/23/16 08:00 52 12/23/16 07:15 95 Room Air 12/23/16 07:15 97.7 60 18 152/75 95 12/23/16 07:15 51 12/23/16 06:00 56 12/23/16 05:00 58 12/23/16 04:00 Room Air 12/23/16 04:00 53 12/23/16 04:00 97.9 53 18 152/84 96 12/23/16 03:00 55 12/23/16 02:00 54 12/23/16 01:00 61 12/23/16 00:00 57 12/23/16 00:00 98.2 57 18 130/62 96 12/23/16 00:00 Room Air 12/22/16 23:00 61 12/22/16 22:00 59 12/22/16 21:00 57 12/22/16 20:00 98.4 60 20 120/64 96 12/22/16 20:00 60 12/22/16 20:00 Room Air 12/22/16 18:04 57 12/22/16 17:00 54 12/22/16 16:00 60 12/22/16 15:00 50 12/22/16 15:00 98.2 58 18 114/57 95 12/22/16 14:00 52 12/22/16 13:00 55 12/22/16 12:00 54 Physical Exam GENERAL: This is a well-nourished, well-developed patient, in no apparent distress. SKIN: No rashes, ecchymoses or lesions. Cool and dry. HEAD: Atraumatic. Normocephalic. No temporal or scalp tenderness. EYES: Pupils equal round and reactive. Extraocular motions intact. No scleral icterus. No injection or drainage. ENT: Nose without bleeding, purulent drainage or septal hematoma. Throat without erythema, tonsillar hypertrophy or exudate. Uvula midline. Airway patent. NECK: Trachea midline. No JVD or lymphadenopathy. Supple, nontender, no meningeal signs. CARDIOVASCULAR: Regular rate and rhythm without murmurs, gallops, or rubs. RESPIRATORY: Clear to auscultation. Breath sounds equal bilaterally. No wheezes , rales, or rhonchi. GASTROINTESTINAL: Abdomen soft, non-tender, nondistended. No hepato-splenomegaly , or palpable masses. No guarding. MUSCULOSKELETAL: Extremities without clubbing, cyanosis, or edema. No joint tenderness, effusion, or edema noted. No calf tenderness. Negative Homans sign bilaterally. NEUROLOGICAL: Awake and alert. Cranial nerves II through XII intact. Motor and sensory grossly within normal limits. Five out of 5 muscle strength in all muscle groups. Normal speech. Laboratory Laboratory Tests Test 12/23/16 05:35 White Blood Count 6.1 Red Blood Count 4.08 Hemoglobin 12.0 Hematocrit 36.7 Mean Corpuscular Volume 90.0 Mean Corpuscular Hemoglobin 29.4 Mean Corpuscular Hemoglobin 32.6 Concent Red Cell Distribution Width 14.0 Platelet Count 197 Mean Platelet Volume 8.1 Neutrophils (%) (Auto) 60.1 Lymphocytes (%) (Auto) 25.6 Monocytes (%) (Auto) 9.3 Eosinophils (%) (Auto) 4.4 Basophils (%) (Auto) 0.6 Neutrophils # (Auto) 3.7 Lymphocytes # (Auto) 1.6 Monocytes # (Auto) 0.6 Eosinophils # (Auto) 0.3 Basophils # (Auto) 0.0 CBC Comment DIFF FINAL Differential Comment Sodium Level 142 Potassium Level 4.0 Chloride Level 105 Carbon Dioxide Level 29.6 Anion Gap 7 Blood Urea Nitrogen 13 Creatinine 0.75 Estimat Glomerular Filtration 77 Rate Random Glucose 127 Calcium Level 8.9 Result Diagram: 12/23/16 0535 12/23/16 0535 Imaging Last Impressions Chest X-Ray 12/21/16 0922 Signed Impressions: Service Date/Time: Wednesday, December 21, 2016 09:34 - CONCLUSION: Under aerated otherwise negative. Logan Morel MD FACR Course Has had some chest pain, but relieved with NTG. Assessment and Plan Problem List: (1) DC, acute, non ST segment elevation Status: Acute (2) CAD (coronary artery disease) Status: Acute Assessment and Plan 71 y/o female presents with acute DC. She has multiple risk factors for CAD and has multivessel CAD. CABG is recommended. She has significant calcification in the ascending aorta and a non-contrast CT will be requested. I discussed the risks and benefits of CABG with her and she agrees to proceed. RISK SCORES About the STS Risk Calculator Procedure: CAB Only Risk of Mortality: 1.403% Morbidity or Mortality: 13.272% Long Length of Stay: 5.77% Short Length of Stay: 37.947% Permanent Stroke: 1.3% Prolonged Ventilation: 10.161% DSW Infection: 0.483% Renal Failure: 1.703% Reoperation: 4.501% Problem Qualifiers (1) CAD (coronary artery disease): Qualified Code: I25.110 - Coronary artery disease involving ely shoshone coronary artery of ely shoshone heart with unstable angina pectoris Raquel Abarca MD Dec 23, 2016 12:11
[2016-12-23] MEDS ORDERED: CHLORHEXIDINE GLUCONATE 4% SOLN 120 ML BTL TOPICAL SCH (12:30)
[2016-12-23] MEDS ORDERED: CEFAZOLIN INJ 500 MG in SODIUM CHLORIDE 0.9% IRR BTL 500 ML IRRIGATION SCH (12:30)
[2016-12-23] MEDS ORDERED: PAPAVERINE INJ 60 MG, NITROGLYCERIN INJ 100 MCG, DILTIAZEM INJ 100 MG in SODIUM CHLORID... IRRIGATION SCH (12:30)
[2016-12-23] MEDS ORDERED: INSULIN REGULAR (IV INFUSION) 100 UNITS in SODIUM CHLORIDE 0.9% INJ 100 ML IV SCH (12:30)
[2016-12-23] MEDS ORDERED: ceFAZolin 2 GM PREMIX 50 ML IV SCH (12:30)
[2016-12-23] MEDS ORDERED: METOPROLOL TARTRATE 25 MG TAB PO SCH (12:30)
--- NOTE | 2016-12-23 14:16 | HHI.PR ---
Subjective Remarks Patient feeling overwhelmed and anxious about knowing that she will need surgery but she told me "I will not not have it "which means she is totally confirmed that she wants to have that surgery She complained of some headache today mostly due to the nitroglycerin was given in the [place] I discussed with Dr. Child who informed me about the finding of the heart catheter which is multiple vessels coronary artery disease, patient already seen by the [facility] No chest pain short of breath nausea or vomiting at this point Objective Vitals Vital Signs Date Time Temp Pulse Resp B/P Pulse Ox O2 Delivery O2 Flow Rate FiO2 12/23/16 13:10 75 12/23/16 12:22 66 12/23/16 11:15 97.6 65 18 125/60 98 12/23/16 11:15 98 Room Air 12/23/16 11:15 62 12/23/16 10:30 67 12/23/16 08:00 52 12/23/16 07:15 95 Room Air 12/23/16 07:15 97.7 60 18 152/75 95 12/23/16 07:15 51 12/23/16 06:00 56 12/23/16 05:00 58 12/23/16 04:00 Room Air 12/23/16 04:00 53 12/23/16 04:00 97.9 53 18 152/84 96 12/23/16 03:00 55 12/23/16 02:00 54 12/23/16 01:00 61 12/23/16 00:00 57 12/23/16 00:00 98.2 57 18 130/62 96 12/23/16 00:00 Room Air 12/22/16 23:00 61 12/22/16 22:00 59 12/22/16 21:00 57 12/22/16 20:00 98.4 60 20 120/64 96 12/22/16 20:00 60 12/22/16 20:00 Room Air 12/22/16 18:04 57 12/22/16 17:00 54 12/22/16 16:00 60 12/22/16 15:00 50 12/22/16 15:00 98.2 58 18 114/57 95 I/O 12/22/16 12/22/16 12/22/16 12/23/16 12/23/16 12/23/16 07:00 15:00 23:00 07:00 15:00 23:00 Intake Total 255 ml 0 ml 402 ml Output Total 600 ml 700 ml Balance -345 ml 0 ml -298 ml Intake Oral 240 ml 0 ml 400 ml IV Total 15 ml 2 ml Output Urine Total 600 ml 700 ml # Voids 4 # Bowel Movements 0 0 0 Result Diagram: 12/23/16 0535 12/23/16 0535 Objective Remarks GENERAL: This is a well-nourished, well-developed patient, in no apparent distress. SKIN: No rashes, warm and dry HEAD: Atraumatic. Normocephalic. EYES: Pupils equal round and reactive. Extraocular motions intact. No scleral icterus. ENT: Nose without bleeding, or drainage, Airway patent. NECK: Trachea midline. Supple CARDIOVASCULAR: Regular rate and rhythm without murmurs, gallops, or rubs. RESPIRATORY: Fair air entry bilaterally. No wheezes, rales, or rhonchi. GASTROINTESTINAL: Abdomen soft, non-tender, nondistended. Positive bowel sounds MUSCULOSKELETAL: Extremities without clubbing, cyanosis, or edema. Pedal pulses appreciated NEUROLOGICAL: Awake and alert. Moves all extremity. Normal speech.no focal neurological deficit A/P Assessment and Plan 71 years old female presented to the ED after having a stressful that family event with Hypertensive urgency: Resolved Non-STEMI with elevated troponin status post heart catheter 12/23 his ultimate in multiple vessels coronary artery disease History of HTN History of hyperlipidemia Diabetes mellitus diet controlled DVT prophylaxis Plan: Status post heart catheter 12/23 resulted in multiple vessel coronary artery disease [facility] consulted Plan for CABG on Friday Cycle cardiac enzyme 3 times : 0.23>>6.03>>2.35 Appreciated cardiology consult, requested transfer to [facility] Dr. Soria master motorcycle technician following he discuss with Dr. Child plan for left heart catheter in a.m. Aspirin given, nitroglycerin sublingual Personally reviewed EKG as above no ST changes significant Lovenox full anticoagulation ISS and Accu-Chek, will check A1c Resume home meds for hypertension include clonidine, enalapril, add hydralazine when necessary, hold atenolol due to bradycardia in the 50s Bri De Jesus MD Dec 23, 2016 14:16
[2016-12-23] MEDS: MUPIROCIN 2% OINT 1 APPLIC/GM SYR EACH NARE SCH ×2 (14:45→20:30)
[2016-12-23] MEDS: ALPRAZolam 0.25 MG TAB PO PRN (15:29)
[2016-12-23 16:14] LABS: AUTOMATED NEUTROPHIL # 6.8 TH/MM3 (1.8-7.7); BASOPHIL % 0.4 % (0.0-2.0); EOSINOPHIL # 0.2 TH/MM3 (0-0.4); EOSINOPHIL % 1.7 % (0.0-4.0); HEMATOCRIT 38.9 % (35.0-46.0); HEMO FLAGS DIFF FINAL; LYMPH % 21.8 % (9.0-44.0); LYMPHOCYTE # 2.2 TH/MM3 (1.0-4.8); MEAN CELL VOLUME 90.4 FL (80.0-100.0); MEAN CORPUSCULAR HEMOGLOBIN 29.3 PG (27.0-34.0); MEAN CORPUSCULAR HGB CONC 32.4 % (32.0-36.0); MONO % 7.4 % (0.0-8.0); NEUT % 68.7 % (16.0-70.0); PLATELET COUNT 252 TH/MM3 (150-450); RED BLOOD COUNT 4.31 MIL/MM3 (4.00-5.30); RED CELL DISTRIBUTION WIDTH 14.1 % (11.6-17.2); WHITE BLOOD COUNT 9.9 TH/MM3 (4.0-11.0)
[2016-12-23] MEDS ORDERED: ONDANSETRON HCL 4 MG/2 ML VIAL IV PUSH PRN (16:15)
--- NOTE | 2016-12-23 16:20 | RADRPT ---
EXAM DATE/TIME: 12/23/2016 15:09 [facility] COMPARISON: US CAROTID ARTERIES, December 23, 2016, 14:53. INDICATIONS : Pre-Op cardiac surgery. MEDICAL HISTORY : Hypercholesterolemia. Hypertension. Gastroesophageal reflux disease. Arthritis. Diabetes. SURGICAL HISTORY : Tonsillectomy. ENCOUNTER: Initial ACUITY: 1 day PAIN SCORE: 0/10 LOCATION: Bilateral legs. TECHNIQUE: Venous ultrasound of the left and right leg was performed from the inguinal ligament to the proximal calf. Real-time, color Doppler and spectral tracing, compression and augmentation techniques were us ed. FINDINGS: RIGHT LEG: There is normal compressibility of the deep venous system from the inguinal region to the proximal ca lf. No echogenic clot is seen in the lumen of the common femoral, femoral, popliteal, and posterior tibial veins. There is a normal response of the venous system to proximal and distal augmentation an d respiration. LEFT LEG: There is normal compressibility of the deep venous system from the inguinal region to the proximal ca lf. No echogenic clot is seen in the lumen of the common femoral, femoral, popliteal, and posterior tibial veins. There is a normal response of the venous system to proximal and distal augmentation an d respiration. CONCLUSION: 1. No DVT identified. Braeden Morel MD on December 23, 2016 at 16:18 Board Certified Radiologist. This report was verified electronically.
--- NOTE | 2016-12-23 16:20 | PD.CARD.PN ---
Subjective Subjective Remarks Post-cath, anxious about consideration of CT surgery No chest pain, no shortness of breath Objective Medications Current Medications Medications (Trade) Dose Ordered Sig/Rey Route Start Time Stop Time Status Last Admin (NS Flush) 2 ml BID IV FLUSH 12/21/16 21:00 12/23/16 07:15 (NS Flush) 2 ml UNSCH PRN IV FLUSH 12/21/16 10:45 (Lovenox Inj) 75 mg Q12H SQ 12/21/16 22:00 12/22/16 20:18 (Nitrostat Sl) 0.4 mg Q5M PRN SL 12/21/16 10:45 (Morphine Inj) 2 mg Q30M PRN IV 12/21/16 11:00 12/23/16 14:38 (Xanax) 0.25 mg Q8HR PRN PO 12/21/16 11:00 12/23/16 15:29 (Lipitor) 40 mg HS PO 12/21/16 21:00 12/22/16 20:18 (Tenormin) 50 mg DAILY PO 12/21/16 16:00 Hold (Catapres) 0.2 mg BID PO 12/21/16 15:45 12/23/16 10:16 (D50w (Vial) Inj) 25 ml UNSCH PRN IV PUSH 12/21/16 16:00 (Glucagon Inj) 1 mg UNSCH PRN OTHER 12/21/16 16:00 12/23/16 15:29 Hydralazine HCl 10 mg 10 mg Q6H PRN IV PUSH 12/21/16 16:15 12/23/16 14:38 (Nitroglycerin-Dextrose Inj) 250 ml @ 0 mls/hr TITRATE IV 12/21/16 17:45 12/21/16 17:49 (Aspirin Chew) 81 mg DAILY CHEW 12/23/16 09:00 12/23/16 10:16 (Bactroban Nasal 2% Oint) 1 applic BID EACH NARE 12/23/16 12:30 12/28/16 12:29 12/23/16 14:45 (Zofran Inj) 4 mg Q6HR PRN IV PUSH 12/23/16 16:15 (Tylenol) 650 mg Q4H PRN PO 12/23/16 16:15 Vital Signs / I&O Vital Signs Date Time Temp Pulse Resp B/P Pulse Ox O2 Delivery O2 Flow Rate FiO2 12/23/16 14:55 18 12/23/16 14:41 59 12/23/16 13:10 75 12/23/16 12:22 66 12/23/16 11:15 97.6 65 18 125/60 98 12/23/16 11:15 98 Room Air 12/23/16 11:15 62 12/23/16 10:30 67 12/23/16 08:00 52 12/23/16 07:15 95 Room Air 12/23/16 07:15 97.7 60 18 152/75 95 12/23/16 07:15 51 12/23/16 06:00 56 12/23/16 05:00 58 12/23/16 04:00 Room Air 12/23/16 04:00 53 12/23/16 04:00 97.9 53 18 152/84 96 12/23/16 03:00 55 12/23/16 02:00 54 12/23/16 01:00 61 12/23/16 00:00 57 12/23/16 00:00 98.2 57 18 130/62 96 12/23/16 00:00 Room Air 12/22/16 23:00 61 12/22/16 22:00 59 12/22/16 21:00 57 12/22/16 20:00 98.4 60 20 120/64 96 12/22/16 20:00 60 12/22/16 20:00 Room Air 12/22/16 18:04 57 12/22/16 17:00 54 I/O 12/22/16 12/22/16 12/22/16 12/23/16 12/23/16 12/23/16 07:00 15:00 23:00 07:00 15:00 23:00 Intake Total 255 ml 0 ml 402 ml Output Total 600 ml 700 ml Balance -345 ml 0 ml -298 ml Intake Oral 240 ml 0 ml 400 ml IV Total 15 ml 2 ml Output Urine Total 600 ml 700 ml # Voids 4 # Bowel Movements 0 0 0 Physical Exam GENERAL: Anxious, NAD, AAOx3 SKIN: Warm and dry. HEAD: Atraumatic. Normocephalic. EYES: Pupils equal and round. No scleral icterus. No injection or drainage. ENT: No nasal bleeding or discharge. Mucous membranes pink and moist. NECK: Trachea midline. No JVD. CARDIOVASCULAR: Regular rate and rhythm. RESPIRATORY: No accessory muscle use. Clear to auscultation. Breath sounds equal bilaterally. GASTROINTESTINAL: Abdomen soft, non-tender, nondistended. Hepatic and splenic margins not palpable. MUSCULOSKELETAL: Extremities without clubbing, cyanosis, or edema. No obvious deformities. Right radial no hematoma, neurovascularly intact distally NEUROLOGICAL: Awake and alert. No obvious cranial nerve deficits. Motor grossly within normal limits. Five out of 5 muscle strength in the arms and legs. Normal speech. PSYCHIATRIC: Appropriate mood and affect; insight and judgment normal. Laboratory Laboratory Tests Test 12/23/16 05:35 White Blood Count 6.1 TH/MM3 Red Blood Count 4.08 MIL/MM3 Hemoglobin 12.0 GM/DL Hematocrit 36.7 % Mean Corpuscular Volume 90.0 FL Mean Corpuscular Hemoglobin 29.4 PG Mean Corpuscular Hemoglobin 32.6 % Concent Red Cell Distribution Width 14.0 % Platelet Count 197 TH/MM3 Mean Platelet Volume 8.1 FL Neutrophils (%) (Auto) 60.1 % Lymphocytes (%) (Auto) 25.6 % Monocytes (%) (Auto) 9.3 % Eosinophils (%) (Auto) 4.4 % Basophils (%) (Auto) 0.6 % Neutrophils # (Auto) 3.7 TH/MM3 Lymphocytes # (Auto) 1.6 TH/MM3 Monocytes # (Auto) 0.6 TH/MM3 Eosinophils # (Auto) 0.3 TH/MM3 Basophils # (Auto) 0.0 TH/MM3 CBC Comment DIFF FINAL Differential Comment Sodium Level 142 MEQ/L Potassium Level 4.0 MEQ/L Chloride Level 105 MEQ/L Carbon Dioxide Level 29.6 MEQ/L Anion Gap 7 MEQ/L Blood Urea Nitrogen 13 MG/DL Creatinine 0.75 MG/DL Estimat Glomerular Filtration 77 ML/MIN Rate Random Glucose 127 MG/DL Calcium Level 8.9 MG/DL Assessment and Plan Problem List: (1) FL, acute, non ST segment elevation (2) Hypertensive emergency (3) CAD (coronary artery disease) (4) Multi-vessel coronary artery stenosis (5) DM (diabetes mellitus) Assessment and Plan 1) MVCAD by catheterization today... Plan for possible CABG, await CT Chest to look at significant calcification of the aorta 2) Con't anticoagulation due to significant CAD 3) ASA/Statin... BB currently on hold due to bradycardia... will see how she does and consider Lopressor 12.5mg Problem Qualifiers (1) CAD (coronary artery disease): Qualified Code: I25.110 - Coronary artery disease involving nikolai coronary artery of nikolai heart with unstable angina pectoris Rubin Child DO Dec 23, 2016 16:20
--- NOTE | 2016-12-23 16:21 | RADRPT ---
EXAM DATE/TIME: 12/23/2016 15:18 [facility] COMPARISON: US LEG BILATERAL VENOUS DOPPLER, December 23, 2016, 15:09. INDICATIONS : Pre-Op cardiac surgery. MEDICAL HISTORY : Hypercholesterolemia. Hypertension. Gastroesophageal reflux disease. Arthritis. Diabetes. SURGICAL HISTORY : Tonsillectomy. ENCOUNTER: Initial ACUITY: 1 day PAIN SCORE: 0/10 LOCATION: Bilateral legs. GREATER SAPHENOUS VEIN THIGH: PROXIMAL: Right 4 mm Left 3 mm MID: Right 1 mm Left 3 mm DISTAL: Right 2 mm Left 1 mm CALF: PROXIMAL: Right 1 mm Left Non-visualized MID: Right 1 mm Left 1 mm DISTAL: Right 1 mm Left 1 mm FINDINGS: The venous system of the lower extremities are patent by color Doppler imaging. Measurements of the leg veins (in mm) are listed above. CONCLUSION: 1. Vein mapping as above. Braeden Morel MD on December 23, 2016 at 16:19 Board Certified Radiologist. This report was verified electronically.
[2016-12-23 16:25] LABS: APTT (PATIENT) 25.1 SEC (24.3-30.1); PROTHROMBIN TIME - PATIENT 10.6 SEC (9.8-11.6)
[2016-12-23 16:37] LABS: ANION GAP 9 MEQ/L (5-15); BICARBONATE 26.9 MEQ/L (21.0-32.0); BLOOD UREA NITROGEN 11 MG/DL (7-18); CHLORIDE 106 MEQ/L (98-107); GLOMERULAR FILTRATION RATE 79 ML/MIN (>89); POTASSIUM 3.5 MEQ/L (3.5-5.1); SODIUM (NA) 142 MEQ/L (136-145)
--- NOTE | 2016-12-23 16:41 | RADRPT ---
EXAM DATE/TIME: 12/23/2016 14:53 [facility] COMPARISON: No previous studies available for comparison. INDICATIONS : Pre-Op cardiac surgery. MEDICAL HISTORY : Hypercholesterolemia. Hypertension. Gastroesophageal reflux disease. Arthritis. Diabetes. SURGICAL HISTORY : Tonsillectomy. ENCOUNTER: Initial ACUITY: 1 day PAIN SCORE: 0/10 LOCATION: Bilateral neck PEAK SYSTOLIC VELOCITIES (cm/sec): ICA/CCA RATIO: Right: 1.0 Left: 1.0 ICA: Right: 119 Left: 127 CCA: Right: 124 Left: 132 ECA: Right: 144 Left: 149 VERTEBRAL: Right: 88 antegrade Left: 100 antegrade Elevated flow velocities and ICA/CCA ratios have been found to correlate with increased degrees of vessel stenosis, calculated as percentage of diameter relative to a normal segment of distal ICA/CCA FINDINGS: RIGHT CAROTID: No significant stenosis is visualized. There is mild atherosclerotic plaquing. The waveforms are with in normal limits. LEFT CAROTID: No significant stenosis is visualized. There is mild atherosclerotic plaquing. The waveforms are wit hin normal limits. VERTEBRAL ARTERIES: Antegrade flow is seen in both vertebral arteries. MISCELLANEOUS: None. CONCLUSION: 1. No hemodynamically significant carotid artery stenosis identified. 2. There is minimal atherosclerotic plaquing at the bifurcations. Braeden Morel MD on December 23, 2016 at 16:38 Board Certified Radiologist. This report was verified electronically.
--- NOTE | 2016-12-23 16:45 | EC ---
Study Study Date:12/23/2016 STUDY CONCLUSIONS SUMMARY - Left ventricle: The cavity size was normal. Wall thickness was normal. Systolic function was normal. The estimated ejection fraction was in the range of 60% to 65%. Wall motion was normal; there were no regional wall motion abnormalities. - Mitral valve: Mildly calcified annulus. - Tricuspid valve: Mild regurgitation. If LV function is below 40, please consider prescribing an ACEI or ARB or document rationale for non-use. PROCEDURE DATA STUDY STATUS: Elective. Procedure: Transthoracic echocardiography. Image quality was good. Scanning was performed from the parasternal, apical, and subcostal acoustic windows. Study completion: The patient tolerated the procedure well. Transthoracic echocardiography. M-mode, complete 2D, complete spectral Doppler, and color Doppler. Height: Height: 62in. Weight: Weight: 164.7lb. Body mass index: BMI: 30.2kg/m^2. Body surface area: BSA: 1.76m^2. Patient status: Inpatient. CARDIAC ANATOMY LEFT VENTRICLE: The cavity size was normal. Wall thickness was normal. Systolic function was normal. The estimated ejection fraction was in the range of 60% to 65%. Wall motion was normal; there were no regional wall motion abnormalities. AORTIC VALVE: Trileaflet; mildly thickened leaflets. Doppler: Transvalvular velocity was within the normal range. There was no stenosis. No regurgitation. AORTA: Aortic root: The aortic root was normal in size. MITRAL VALVE: Mildly calcified annulus. Doppler: Transvalvular velocity was within the normal range. There was no evidence for stenosis. No regurgitation. Valve area by pressure half-time: 3.24cm^2. Indexed valve area by pressure half-time: 1.84cm^2/m^2. Peak gradient: 2mm Hg (D). LEFT ATRIUM: The atrium was normal in size. RIGHT VENTRICLE: The cavity size was normal. Wall thickness was normal. PULMONIC VALVE: Doppler: Transvalvular velocity was within the normal range. There was no evidence for stenosis. No regurgitation. TRICUSPID VALVE: Structurally normal valve. Doppler: Transvalvular velocity was within the normal range. Mild regurgitation. Peak gradient: 21mm Hg (D). PULMONARY ARTERY: The main pulmonary artery was normal-sized. Systolic pressure was within the normal range. RIGHT ATRIUM: The atrium was normal in size. PERICARDIUM: There was no pericardial effusion. SYSTEMIC VEINS: Inferior vena cava: The vessel was normal in size. Patient weight: 164.7lb _Ejection fraction:_ 65-75% _Fractional shortening:_ 32% up to 5Kg 5-11.5Kg 11.6-22.9Kg 23-45Kg 45-57Kg Aortic Root 7-13 <17 13-22 17-27 17-27 LA diam 6-13 <23 24-38 33-47 37-40 RVID 10-17 7-15 7-15 7-18 8-17 LVIDd 12-22 <32 24-38 33-47 37-40 LVPW 2-4 3-6 5-7 6-8 7-8 IVS 2-4 3-6 5-7 6-8 7-8 BASIC MEASUREMENTS ADULT NORMAL Left ventricle LV internal dimension, ED, chordal *41.9 mm 43-52 level, PLAX LV internal dimension, ES, chordal 28.1 mm 23-38 level, PLAX Fractional shortening, chordal level, 33 % >29 PLAX LV posterior wall thickness, ED 10.3 mm IVS/LVPW ratio, ED 1 <1.3 Volume, ED, MOD, 1-plane 60 ml Volume, ES, MOD, 1-plane 16 ml Ejection fraction, MOD, 1-plane 73 % Stroke volume, MOD, 1-plane 44 ml Volume index, ED, MOD, 1-plane 34 ml/m^2 Volume index, ES, MOD, 1-plane 9 ml/m^2 Stroke index, MOD, 1-plane 25 ml/m^2 Ventricular septum Septal thickness, ED 10.3 mm Aortic valve Leaflet separation *12 mm 15-26 Left atrium Anterior-posterior dimension 34 mm Anterior-posterior dimension index 1.93 cm/m^2 <2.2 Right ventricle RV internal dimension, ED, PLAX 29.3 mm 19-38 BASIC MEASUREMENTS ADULT NORMAL Aortic valve Leaflet separation *12 mm 15-26 Aorta Root diameter, ED 26 mm 20-37 DOPPLER MEASUREMENTS ADULT NORMAL Aortic valve Peak velocity, S 141 cm/s Mitral valve Peak E-wave velocity 71.1 cm/s Peak A-wave velocity 56.8 cm/s Pressure half-time 68 ms Peak gradient, D 2 mm Hg Peak E/A ratio 1.3 Valve area, pressure half-time 3.24 cm^2 Valve area index, pressure half-time 1.84 cm^2/m^2 Tricuspid valve Peak gradient, D 21 mm Hg Maximal inflow velocity 231 cm/s Systemic veins Estimated CVP 10 mm Hg Pulmonic valve Peak velocity, S 84.2 cm/s LEGEND: Mean values are shown as u=mean value. Asterisk (*) tracey values outside specified normal range. Prepared and signed by Wade Linn [id number]
[2016-12-23] MEDS: ACETAMINOPHEN 325 MG TAB PO PRN ×2 (16:55→20:29)
--- NOTE | 2016-12-23 17:04 | RADRPT ---
EXAM DATE/TIME: 12/23/2016 16:33 [facility] COMPARISON: No previous studies available for comparison. INDICATIONS : Shortness of breath. RADIATION DOSE: 9.67 CTDIvol (mGy) MEDICAL HISTORY : Hypertension. Cardiovascular disease SURGICAL HISTORY : None. ENCOUNTER: Initial ACUITY: 1 day PAIN SCALE: 0/10 LOCATION: Bilateral chest TECHNIQUE: Volumetric scanning of the chest was performed. Using automated exposure control and adjustment of t he mA and/or kV according to patient size, radiation dose was kept as low as reasonably achievable to obtain optimal diagnostic quality images. FINDINGS: LUNGS: There are minimal atelectatic changes in the anterior aspect of the left upper lobe. The lungs are ot herwise clear. PLEURAE: There is no pleural thickening or pleural effusion. MEDIASTINUM: The heart and great vessels demonstrate no acute abnormality. There is no mediastinal or hilar lymph adenopathy. There is atherosclerotic plaquing within the coronary arteries. AXILLAE: Within normal limits. No lymphadenopathy. MUSCULOSKELETAL: There are degenerative changes throughout the spine. MISCELLANEOUS: The visualized upper abdominal organs demonstrate no acute abnormality. CONCLUSION: 1. Advanced atherosclerotic plaquing and calcification of the aortic annulus. 2. The lungs are clear. 3. Degenerative changes in the spine. Braeden Morel MD on December 23, 2016 at 17:00 Board Certified Radiologist. This report was verified electronically.
[2016-12-23 17:49] LABS: HEMOGLOBIN A1a 1.1 %; HEMOGLOBIN Ao 84.1 %; HEMOGLOBIN LA1C 2.1 %
[2016-12-23] MEDS: ATORVASTATIN 40 MG TAB PO SCH (20:29)
[2016-12-23] MEDS ORDERED: SODIUM CHLORIDE 0.9% FLUSH 10 ML FLUSH IV FLUSH SCH ×2 (21:00)
[2016-12-24] VITALS (24 sets, daily range): BP systolic 112–160; BP diastolic 52–79; PULSE 55–83; RESP 18–20; TEMP 98.2–99.2; O2SAT 94–98
[2016-12-24] MEDS: ACETAMINOPHEN 325 MG TAB PO PRN (04:47)
[2016-12-24] MEDS: INSULIN NovoLIN REGULAR SUPPLEMENTAL SCALE SQ SCH ×4 (05:27→21:00)
[2016-12-24 06:21] LABS: BASOPHIL % 0.1 % (0.0-2.0); EOSINOPHIL # 0.2 TH/MM3 (0-0.4); EOSINOPHIL % 2.2 % (0.0-4.0); HEMATOCRIT 35.6 % (35.0-46.0); HEMO FLAGS DIFF FINAL; LYMPH % 20.9 % (9.0-44.0); LYMPHOCYTE # 1.5 TH/MM3 (1.0-4.8); MEAN CELL VOLUME 89.5 FL (80.0-100.0); MEAN CORPUSCULAR HEMOGLOBIN 30.7 PG (27.0-34.0); MEAN CORPUSCULAR HGB CONC 34.3 % (32.0-36.0); MONO % 7.6 % (0.0-8.0); NEUT % 69.2 % (16.0-70.0); PLATELET COUNT 235 TH/MM3 (150-450); RED BLOOD COUNT 3.98 MIL/MM3 (4.00-5.30); RED CELL DISTRIBUTION WIDTH 14.3 % (11.6-17.2); WHITE BLOOD COUNT 7.3 TH/MM3 (4.0-11.0)
[2016-12-24 06:53] LABS: BICARBONATE 29.6 MEQ/L (21.0-32.0); POTASSIUM 3.9 MEQ/L (3.5-5.1)
--- NOTE | 2016-12-24 07:30 | MA ---
cc: RUBIN REZA DO DATE: 12/23/2016 PROCEDURE Left heart catheterization, coronary angiogram, FFR LAD, moderate sedation 45 minutes. PREPROCEDURE DIAGNOSIS NSTEMI with hypertensive urgency. POSTPROCEDURE DIAGNOSIS NSTEMI, multivessel coronary artery disease. MEDICATIONS Verapamil 2.5 mg. Nitro 200 mcg. Heparin 5500 units. Versed 0.5 mg. Fentanyl 25 mcg. Hydralazine 10 mg. Adenosine 140 mcg/kg/minute. CONTRAST USED 100 cc. FLUOROSCOPY TIME 10.2 minutes. SEDATION TIME 45 minutes. PROCEDURAL SUMMARY Ms. White is a pleasant 71-year-old female who presented with hypertensive urgency and was found to have a NSTEMI. Because of that she was recommended cardiac catheterization. The risks, benefits and alternatives were explained and she consented as such. She was brought to the lab and prepped in the usual sterile fashion. The right radial artery was accessed using a modified Seldinger technique and placement of a 5/6 Slender sheath. This was easily aspirated and flushed. A JR4 was then advanced over a J-wire to the ascending aorta and across the aortic valve. LVEDP was measured at 10. LV gram shows an ejection fraction of 65%. The JR4 was then pulled back across the aortic valve showing no significant gradient of aortic stenosis. The JR4 was then used for selective angiography of the right coronary artery. This was then exchanged for a JL 3.5 which was used for selective angiography of the left coronary system. Because of the significant disease in the proximal LAD it was felt that FFR of this lesion would significantly change her management. The JL 3.5 was exchanged for an EBU 3.5. The patient was given additional heparin as an anticoagulant. A Croton wire was then advanced into the distal LAD. IFR was measured at 0.89 and because of the intermediate range the patient was given adenosine at 140 mcg/kg/minute. During FFR the measurement was 0.80, 45 seconds in, but at that time the patient could no longer take the chest pain and shortness of breath and adenosine was stopped. The Croton wire was then removed. Angiography showed no disruption of the vessel. The EBU catheter was removed over a J-wire and a TR band was placed over the arteriotomy site to create hemostasis. 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 CORONARY ANGIOGRAPHY The left main ostially had a 10-20% lesion. The LAD had a 70% lesion proximally (FFR 0.80), distally 30%. The circumflex had 70% lesion in the proximal portion with one major obtuse marginal and no significant disease. The right coronary artery proximally and 50% lesion and mid to distal 90% lesion. Overall the RCA is a dominant vessel. IMPRESSIONS 1. Multivessel coronary artery disease. 2. Ejection fraction 65% by left ventriculogram. 3. Diabetes mellitus. 4. NSTEMI. 5. Hypertension. RECOMMENDATIONS 1. Ms. White appears to have multivessel disease with significant disease in her proximal LAD, circumflex and RCA. Because of this I have recommended CT surgery evaluation. I spoke with Dr. Abarca about the case and he will work her up for consideration of coronary artery bypass grafting. 2. Will check an echo to look at her overall left ventricular function, cardiac structure and possible valvulopathies. 3. Further recommendations will be made based on CT surgery work-up. Thank you for allowing me to see Sybil White. If there are any questions, please do not hesitate to call. Rubin Reza DO VGP/BT /7:07 PM /7:15 AM
[2016-12-24] MEDS: MUPIROCIN 2% OINT 1 APPLIC/GM SYR EACH NARE SCH ×2 (08:45→21:00)
[2016-12-24] MEDS: cloNIDine HCL 0.2 MG TAB PO SCH ×2 (08:45→22:18)
[2016-12-24] MEDS: ASPIRIN 81 MG CHEW TAB CHEW SCH (08:46)
[2016-12-24] MEDS: SODIUM CHLORIDE 0.9% FLUSH 10 ML FLUSH IV FLUSH SCH ×2 (08:46→22:18)
[2016-12-24] MEDS: ENOXAPARIN SODIUM 100 MG/ML SYRINGE SQ SCH (11:30)
--- NOTE | 2016-12-24 11:36 | PD.CARD.PN ---
Subjective Subjective Remarks No chest pain, no shortness of breath Small bleed from radial, pressure held 15 minutes Objective Medications Current Medications Medications (Trade) Dose Ordered Sig/Rey Route Start Time Stop Time Status Last Admin (NS Flush) 2 ml BID IV FLUSH 12/21/16 21:00 12/24/16 08:46 (NS Flush) 2 ml UNSCH PRN IV FLUSH 12/21/16 10:45 (Lovenox Inj) 75 mg Q12H SQ 12/21/16 22:00 12/24/16 11:30 (Nitrostat Sl) 0.4 mg Q5M PRN SL 12/21/16 10:45 (Morphine Inj) 2 mg Q30M PRN IV 12/21/16 11:00 12/23/16 14:38 (Xanax) 0.25 mg Q8HR PRN PO 12/21/16 11:00 12/23/16 15:29 (Lipitor) 40 mg HS PO 12/21/16 21:00 12/23/16 20:29 (Tenormin) 50 mg DAILY PO 12/21/16 16:00 Hold (Catapres) 0.2 mg BID PO 12/21/16 15:45 12/24/16 08:45 (D50w (Vial) Inj) 25 ml UNSCH PRN IV PUSH 12/21/16 16:00 (Glucagon Inj) 1 mg UNSCH PRN OTHER 12/21/16 16:00 12/23/16 15:29 Hydralazine HCl 10 mg 10 mg Q6H PRN IV PUSH 12/21/16 16:15 12/23/16 14:38 (Nitroglycerin-Dextrose Inj) 250 ml @ 0 mls/hr TITRATE IV 12/21/16 17:45 12/21/16 17:49 (Aspirin Chew) 81 mg DAILY CHEW 12/23/16 09:00 12/24/16 08:46 (Bactroban Nasal 2% Oint) 1 applic BID EACH NARE 12/23/16 12:30 12/28/16 12:29 12/24/16 08:45 (Zofran Inj) 4 mg Q6HR PRN IV PUSH 12/23/16 16:15 12/23/16 16:56 (Tylenol) 650 mg Q4H PRN PO 12/23/16 16:15 12/24/16 04:47 Vital Signs / I&O Vital Signs Date Time Temp Pulse Resp B/P Pulse Ox O2 Delivery O2 Flow Rate FiO2 12/24/16 08:00 94 Room Air 12/24/16 08:00 98.2 61 20 150/71 94 12/24/16 06:00 62 12/24/16 05:00 58 12/24/16 04:10 94 Room Air 12/24/16 04:00 98.3 65 18 143/71 97 12/24/16 04:00 55 12/24/16 03:00 62 12/24/16 02:00 58 12/24/16 01:00 60 12/24/16 00:10 96 Room Air 12/24/16 00:00 57 12/23/16 23:00 72 12/23/16 22:00 66 12/23/16 21:00 72 12/23/16 20:25 96 Room Air 12/23/16 20:00 98.1 70 18 116/60 97 12/23/16 20:00 71 12/23/16 19:00 70 12/23/16 18:00 73 12/23/16 17:59 70 12/23/16 17:50 18 12/23/16 16:00 74 12/23/16 15:15 98.1 67 18 113/57 97 12/23/16 15:15 98 Room Air 12/23/16 15:15 69 12/23/16 14:55 18 12/23/16 14:41 59 12/23/16 13:10 75 12/23/16 12:22 66 I/O 12/23/16 12/23/16 12/23/16 12/24/16 12/24/16 12/24/16 07:00 15:00 23:00 07:00 15:00 23:00 Intake Total 402 ml 600 ml 360 ml Output Total 700 ml Balance -298 ml 600 ml 360 ml Intake Oral 400 ml 600 ml 360 ml IV Total 2 ml Output Urine Total 700 ml # Voids 11 2 # Bowel Movements 0 Physical Exam GENERAL: Anxious, NAD, AAOx3 SKIN: Warm and dry. HEAD: Atraumatic. Normocephalic. EYES: Pupils equal and round. No scleral icterus. No injection or drainage. ENT: No nasal bleeding or discharge. Mucous membranes pink and moist. NECK: Trachea midline. No JVD. CARDIOVASCULAR: Regular rate and rhythm. RESPIRATORY: No accessory muscle use. Clear to auscultation. Breath sounds equal bilaterally. GASTROINTESTINAL: Abdomen soft, non-tender, nondistended. Hepatic and splenic margins not palpable. MUSCULOSKELETAL: Extremities without clubbing, cyanosis, or edema. No obvious deformities. Right radial no hematoma, neurovascularly intact distally, small amount of ecchymosis NEUROLOGICAL: Awake and alert. No obvious cranial nerve deficits. Motor grossly within normal limits. Five out of 5 muscle strength in the arms and legs. Normal speech. PSYCHIATRIC: Appropriate mood and affect; insight and judgment normal. Laboratory Laboratory Tests Test 12/23/16 12/23/16 12/23/16 12/24/16 13:54 14:05 15:55 05:35 Blood Type B POSITIVE B POSITIVE Antibody Screen NEGATIVE Crossmatch Leukocyte-Reduced Red Blood Cells Blood Bank Comment Nasal Screen MRSA (PCR) NEGATIVE White Blood Count 9.9 TH/MM3 7.3 TH/MM3 Red Blood Count 4.31 MIL/MM3 3.98 MIL/MM3 Hemoglobin 12.6 GM/DL 12.2 GM/DL Hematocrit 38.9 % 35.6 % Mean Corpuscular Volume 90.4 FL 89.5 FL Mean Corpuscular Hemoglobin 29.3 PG 30.7 PG Mean Corpuscular Hemoglobin 32.4 % 34.3 % Concent Red Cell Distribution Width 14.1 % 14.3 % Platelet Count 252 TH/MM3 235 TH/MM3 Mean Platelet Volume 7.8 FL 7.8 FL Neutrophils (%) (Auto) 68.7 % 69.2 % Lymphocytes (%) (Auto) 21.8 % 20.9 % Monocytes (%) (Auto) 7.4 % 7.6 % Eosinophils (%) (Auto) 1.7 % 2.2 % Basophils (%) (Auto) 0.4 % 0.1 % Neutrophils # (Auto) 6.8 TH/MM3 5.0 TH/MM3 Lymphocytes # (Auto) 2.2 TH/MM3 1.5 TH/MM3 Monocytes # (Auto) 0.7 TH/MM3 0.5 TH/MM3 Eosinophils # (Auto) 0.2 TH/MM3 0.2 TH/MM3 Basophils # (Auto) 0.0 TH/MM3 0.0 TH/MM3 CBC Comment DIFF FINAL DIFF FINAL Differential Comment Prothrombin Time 10.6 SEC Prothromb Time International 1.0 RATIO Ratio Activated Partial 25.1 SEC Thromboplast Time Sodium Level 142 MEQ/L 142 MEQ/L Potassium Level 3.5 MEQ/L 3.9 MEQ/L Chloride Level 106 MEQ/L 104 MEQ/L Carbon Dioxide Level 26.9 MEQ/L 29.6 MEQ/L Anion Gap 9 MEQ/L 8 MEQ/L Blood Urea Nitrogen 11 MG/DL 14 MG/DL Creatinine 0.73 MG/DL 0.87 MG/DL Estimat Glomerular Filtration 79 ML/MIN 65 ML/MIN Rate Random Glucose 142 MG/DL 102 MG/DL Hemoglobin A1c 6.3 % Calcium Level 8.9 MG/DL 8.9 MG/DL Assessment and Plan Problem List: (1) MT, acute, non ST segment elevation (2) Hypertensive emergency (3) CAD (coronary artery disease) (4) Multi-vessel coronary artery stenosis (5) DM (diabetes mellitus) Assessment and Plan 1) MVCAD by cardiac cath... Plan for possible CABG, await CT Chest to look at significant calcification of the aorta 2) Con't anticoagulation due to significant CAD 3) ASA/Statin... BB currently on hold due to bradycardia... will see how she does and consider Lopressor 12.5mg 4) Right radial small bleed, pressure held, no hematoma, minimal ecchymosis Problem Qualifiers (1) CAD (coronary artery disease): Qualified Code: I25.110 - Coronary artery disease involving [place] coronary artery of [place] heart with unstable angina pectoris Rubin Child DO Dec 24, 2016 11:36
[2016-12-24] MEDS ORDERED: PANTOPRAZOLE SOD 20 MG DELAYED RELEASE TAB PO ONE (13:15)
--- NOTE | 2016-12-24 13:39 | PD.CAR.PN ---
CVT Progress Note Subjective/Hospital Course: 71/ female presented with SOB and chest tightness, after hearing news of her Godmother passing away. Her trop was 0.23/ + NSTEMI underwent heart cath multivessel disease LAD 70%, Circ 70%, RCA 50% proximal and mid distal 90% CT chest plaquing and calcification of aortic annulus , EF 60% PMH: DM, HTN 4/4 no c/o of chest pain scheduled for surgery in am CABG x 4 dc lovenox after this pm dose Objective: GENERAL: SKIN: Warm and dry. HEAD: Normocephalic. EYES: No scleral icterus. No injection or drainage. NECK: Supple, trachea midline. No JVD or lymphadenopathy. CARDIOVASCULAR: Regular rate and rhythm without murmurs, gallops, or rubs. RESPIRATORY: Breath sounds equal bilaterally. No accessory muscle use. GASTROINTESTINAL: Abdomen soft, non-tender, nondistended. MUSCULOSKELETAL: No cyanosis, or edema. BACK: Nontender without obvious deformity. No CVA tenderness. Vital Signs Date Time Temp Pulse Resp B/P Pulse Ox O2 Delivery O2 Flow Rate FiO2 12/24/16 12:00 62 12/24/16 11:00 95 Room Air 12/24/16 11:00 61 12/24/16 11:00 98.8 58 20 112/52 95 12/24/16 10:00 64 12/24/16 09:00 74 12/24/16 08:00 94 Room Air 12/24/16 08:00 62 12/24/16 08:00 98.2 61 20 150/71 94 12/24/16 07:00 59 12/24/16 06:00 62 12/24/16 05:00 58 12/24/16 04:10 94 Room Air 12/24/16 04:00 98.3 65 18 143/71 97 12/24/16 04:00 55 12/24/16 03:00 62 12/24/16 02:00 58 12/24/16 01:00 60 12/24/16 00:10 96 Room Air 12/24/16 00:00 57 12/23/16 23:00 72 12/23/16 22:00 66 12/23/16 21:00 72 12/23/16 20:25 96 Room Air 12/23/16 20:00 98.1 70 18 116/60 97 12/23/16 20:00 71 12/23/16 19:00 70 12/23/16 18:00 73 12/23/16 17:59 70 12/23/16 17:50 18 12/23/16 16:00 74 12/23/16 15:15 98.1 67 18 113/57 97 12/23/16 15:15 98 Room Air 12/23/16 15:15 69 12/23/16 14:55 18 12/23/16 14:41 59 Labs: Laboratory Tests Test 12/24/16 05:35 White Blood Count 7.3 TH/MM3 (4.0-11.0) Red Blood Count 3.98 MIL/MM3 (4.00-5.30) Hemoglobin 12.2 GM/DL (11.6-15.3) Hematocrit 35.6 % (35.0-46.0) Mean Corpuscular Volume 89.5 FL (80.0-100.0) Mean Corpuscular Hemoglobin 30.7 PG (27.0-34.0) Mean Corpuscular Hemoglobin 34.3 % Concent (32.0-36.0) Red Cell Distribution Width 14.3 % (11.6-17.2) Platelet Count 235 TH/MM3 (150-450) Mean Platelet Volume 7.8 FL (7.0-11.0) Neutrophils (%) (Auto) 69.2 % (16.0-70.0) Lymphocytes (%) (Auto) 20.9 % (9.0-44.0) Monocytes (%) (Auto) 7.6 % (0.0-8.0) Eosinophils (%) (Auto) 2.2 % (0.0-4.0) Basophils (%) (Auto) 0.1 % (0.0-2.0) Neutrophils # (Auto) 5.0 TH/MM3 (1.8-7.7) Lymphocytes # (Auto) 1.5 TH/MM3 (1.0-4.8) Monocytes # (Auto) 0.5 TH/MM3 (0-0.9) Eosinophils # (Auto) 0.2 TH/MM3 (0-0.4) Basophils # (Auto) 0.0 TH/MM3 (0-0.2) CBC Comment DIFF FINAL Differential Comment Sodium Level 142 MEQ/L (136-145) Potassium Level 3.9 MEQ/L (3.5-5.1) Chloride Level 104 MEQ/L (98-107) Carbon Dioxide Level 29.6 MEQ/L (21.0-32.0) Anion Gap 8 MEQ/L (5-15) Blood Urea Nitrogen 14 MG/DL (7-18) Creatinine 0.87 MG/DL (0.50-1.00) Estimat Glomerular Filtration 65 ML/MIN (>89) Rate Random Glucose 102 MG/DL (74-106) Calcium Level 8.9 MG/DL (8.5-10.1) Result Diagram: 12/24/16 0535 12/24/16 0535 Telemetry: NSR (1) KS, acute, non ST segment elevation Plan: ASA, statin , for surgery in am (2) Hypertensive emergency Plan: stable (3) CAD (coronary artery disease) (4) Multi-vessel coronary artery stenosis (5) DM (diabetes mellitus) Plan: sliding scale Insulin, diabetic diet HGB Aic 6.3 Problem Qualifiers (1) CAD (coronary artery disease): Qualified Code: I25.110 - Coronary artery disease involving [place] coronary artery of [place] heart with unstable angina pectoris Oanh Gary Dec 24, 2016 13:39
--- NOTE | 2016-12-24 15:14 | HHI.PR ---
Subjective Remarks Doing well going for CABG surgery tomorrow I discussed with Dr. Lux today Afebrile, no short of breath Objective Vitals Vital Signs Date Time Temp Pulse Resp B/P Pulse Ox O2 Delivery O2 Flow Rate FiO2 12/24/16 12:00 62 12/24/16 11:00 95 Room Air 12/24/16 11:00 61 12/24/16 11:00 98.8 58 20 112/52 95 12/24/16 10:00 64 12/24/16 09:00 74 12/24/16 08:00 94 Room Air 12/24/16 08:00 62 12/24/16 08:00 98.2 61 20 150/71 94 12/24/16 07:00 59 12/24/16 06:00 62 12/24/16 05:00 58 12/24/16 04:10 94 Room Air 12/24/16 04:00 98.3 65 18 143/71 97 12/24/16 04:00 55 12/24/16 03:00 62 12/24/16 02:00 58 12/24/16 01:00 60 12/24/16 00:10 96 Room Air 12/24/16 00:00 57 12/23/16 23:00 72 12/23/16 22:00 66 12/23/16 21:00 72 12/23/16 20:25 96 Room Air 12/23/16 20:00 98.1 70 18 116/60 97 12/23/16 20:00 71 12/23/16 19:00 70 12/23/16 18:00 73 12/23/16 17:59 70 12/23/16 17:50 18 12/23/16 16:00 74 12/23/16 15:15 98.1 67 18 113/57 97 12/23/16 15:15 98 Room Air 12/23/16 15:15 69 I/O 12/23/16 12/23/16 12/23/16 12/24/16 12/24/16 12/24/16 07:00 15:00 23:00 07:00 15:00 23:00 Intake Total 402 ml 600 ml 360 ml Output Total 700 ml Balance -298 ml 600 ml 360 ml Intake Oral 400 ml 600 ml 360 ml IV Total 2 ml Output Urine Total 700 ml # Voids 11 2 # Bowel Movements 0 Result Diagram: 4/4/17 0535 12/24/16 0535 Objective Remarks GENERAL: This is a well-nourished, well-developed patient, in no apparent distress. SKIN: No rashes, warm and dry HEAD: Atraumatic. Normocephalic. EYES: Pupils equal round and reactive. Extraocular motions intact. No scleral icterus. ENT: Nose without bleeding, or drainage, Airway patent. NECK: Trachea midline. Supple CARDIOVASCULAR: Regular rate and rhythm without murmurs, gallops, or rubs. RESPIRATORY: Fair air entry bilaterally. No wheezes, rales, or rhonchi. GASTROINTESTINAL: Abdomen soft, non-tender, nondistended. Positive bowel sounds MUSCULOSKELETAL: Extremities without clubbing, cyanosis, or edema. Pedal pulses appreciated NEUROLOGICAL: Awake and alert. Moves all extremity. Normal speech.no focal neurological deficit A/P Assessment and Plan 71 years old female presented to the ED after having a stressful that family event with Hypertensive urgency: Resolved Non-STEMI with elevated troponin status post heart catheter 12/23 his ultimate in multiple vessels coronary artery disease History of HTN History of hyperlipidemia Diabetes mellitus diet controlled DVT prophylaxis Plan: D/W Dr. Child today Status post heart catheter 12/23 resulted in multiple vessel coronary artery disease CVS consulted , there was a concern about CT chest showing multiple calcification however [facility] decided on proceeding with surgery in a.m. Cycle cardiac enzyme 3 times : 0.23>>6.03>>2.35 Appreciated cardiology consult, requested transfer to [facility] Dr. Soria softwood faller following he discuss with Dr. Child plan for left heart catheter in a.m. Aspirin given, nitroglycerin sublingual Personally reviewed EKG as above no ST changes significant Lovenox full anticoagulation ISS and Accu-Chek, will check A1c Resume home meds for hypertension include clonidine, enalapril, add hydralazine when necessary, hold atenolol due to bradycardia in the 50s Bri De Jesus MD Dec 24, 2016 15:14
[2016-12-24] MEDS ORDERED: ENOXAPARIN SODIUM 80 MG/0.8 ML SYRINGE SQ ONE (22:00)
[2016-12-24] MEDS: ATORVASTATIN 40 MG TAB PO SCH (22:18)
[2016-12-24] MEDS ORDERED: ENOXAPARIN SODIUM 80 MG/0.8 ML SYRINGE SQ SCH (22:30)
[2016-12-24 22:36] LABS: BACTERIA, URINE RARE /hpf; BLOOD, URINE NEG (NEG); COMMENT (UR) CULT NOT INDICATED; CULTURE IF INDICATED CULT NOT INDICATED; GLUCOSE,URINE NEG (NEG); KETONE, URINE NEG (NEG); NITRITE,URINE NEG (NEG); SQUAMOUS EPITHELIAL CELL URINE <1 /hpf (0-5); URINE COLOR LIGHT-YELLOW (YELLW/STRAW)
[2016-12-24] MEDS ORDERED: POVIDONE IODINE 5% (ANTISEPSIS KIT) 4 APPLICATIONS EACH NARE PRN (23:00)
[2016-12-24] MEDS: LACTATED RINGER'S 1000 ML INJ 1,000 ML IV SCH (23:00)
[2016-12-24] MEDS ORDERED: INSULIN HUMAN REGULAR 1,000 UNITS/10 ML VIAL SQ PRN (23:00)
[2016-12-24] MEDS ORDERED: CHLORHEXIDINE GLUCONATE 2 % 1 PACK (2 CLOTHS) TOPICAL PRN (23:00)
[2016-12-24] MEDS ORDERED: SODIUM CHLORID 0.9% 500 ML IV PRN (23:00)
[2016-12-24] MEDS ORDERED: diphenhydrAMINE HCL 25 MG CAP PO ONE (23:30)
[2016-12-25] VITALS (14 sets, daily range): BP systolic 102–159; BP diastolic 52–85; PULSE 57–98; RESP 8–20; TEMP 96.3–98.5; O2SAT 94–99
[2016-12-25] MEDS ORDERED: VECURONIUM BROMIDE 10 MG VIAL IV ONE (05:00)
[2016-12-25] MEDS ORDERED: PHENYLEPHRINE HCL 10 MG/ML VIAL IV ONE (05:00)
[2016-12-25] MEDS ORDERED: LIDOCAINE HCL 1% 30 ML VIAL OTHER ONE (05:00)
[2016-12-25] MEDS ORDERED: ESMOLOL HCL 100 MG/10 ML VIAL IV ONE (05:00)
[2016-12-25] MEDS ORDERED: GLYCOPYRROLATE 0.2 MG/ML VIAL IV ONE (05:00)
[2016-12-25] MEDS ORDERED: HEPARIN SODIUM - SQ 10,000 UNITS/ML VIAL SQ ONE (05:00)
[2016-12-25] MEDS ORDERED: DEXMEDETOMIDINE INJ 50 ML IV ONE (05:00)
[2016-12-25] MEDS ORDERED: MAGNESIUM SULFATE 1000 MG/2 ML VIAL (PED) IV ONE (05:00)
[2016-12-25] MEDS ORDERED: PROPOFOL 1000 MG/100 ML INJ 100 ML IV ONE (05:00)
[2016-12-25] MEDS ORDERED: LIDOCAINE HCL 2% 100 MG/5 ML SYRINGE IV PUSH ONE (05:00)
[2016-12-25] MEDS ORDERED: PROTAMINE SULFATE 250 MG/25 ML VIAL IV ONE (05:00)
[2016-12-25] MEDS ORDERED: NITROGLYCERIN-DEXTROSE INJ 250 ML IV ONE (05:00)
[2016-12-25] MEDS ORDERED: AMINOCAPROIC ACID INJ 250 MG/ML 20 ML VIAL IV ONE (05:00)
[2016-12-25] MEDS: INSULIN NovoLIN REGULAR SUPPLEMENTAL SCALE SQ SCH (07:00)
--- NOTE | 2016-12-25 08:07 | HHI.PR ---
Subjective Remarks Follow up on multiple vessels coronary artery disease going for CABG today Patient Resting in bed stated she had "spasm in her lower chest below the rib cage"she thinks it's spasm No fever or short of breath or headache or dizziness or lightheadedness Objective Vitals Vital Signs Date Time Temp Pulse Resp B/P Pulse Ox O2 Delivery O2 Flow Rate FiO2 12/25/16 07:00 57 12/25/16 06:00 58 12/25/16 05:00 60 12/25/16 04:00 61 12/25/16 03:00 96 Room Air 12/25/16 03:00 98.5 65 18 159/85 96 12/25/16 03:00 64 12/25/16 02:00 62 12/25/16 01:00 60 12/25/16 00:00 62 12/24/16 23:00 98 Room Air 12/24/16 23:00 67 12/24/16 23:00 98.8 64 20 160/69 98 12/24/16 22:00 67 12/24/16 21:00 83 12/24/16 20:00 62 12/24/16 19:00 98.7 67 18 156/79 97 12/24/16 19:00 97 Room Air 12/24/16 19:00 65 12/24/16 18:00 77 12/24/16 17:00 66 12/24/16 16:00 72 12/24/16 16:00 99.2 68 20 153/77 97 12/24/16 16:00 97 Room Air 12/24/16 15:00 65 12/24/16 14:00 56 12/24/16 13:00 60 12/24/16 12:00 62 12/24/16 11:00 95 Room Air 12/24/16 11:00 61 12/24/16 11:00 98.8 58 20 112/52 95 12/24/16 10:00 64 12/24/16 09:00 74 I/O 12/24/16 12/24/16 12/24/16 12/25/16 12/25/16 12/25/16 07:00 15:00 23:00 07:00 15:00 23:00 Intake Total 360 ml 810 ml 240 ml Output Total 800 ml 400 ml Balance 360 ml 10 ml -160 ml Intake Oral 360 ml 810 ml 240 ml Output Urine Total 800 ml 400 ml # Voids 2 # Bowel Movements 0 Result Diagram: 12/24/1635 12/24/1635 Objective Remarks GENERAL: This is a well-nourished, well-developed patient, in no apparent distress. SKIN: No rashes, warm and dry HEAD: Atraumatic. Normocephalic. EYES: Pupils equal round and reactive. Extraocular motions intact. No scleral icterus. ENT: Nose without bleeding, or drainage, Airway patent. NECK: Trachea midline. Supple CARDIOVASCULAR: Regular rate and rhythm without murmurs, gallops, or rubs. RESPIRATORY: Fair air entry bilaterally. No wheezes, rales, or rhonchi. GASTROINTESTINAL: Abdomen soft, non-tender, nondistended. Positive bowel sounds MUSCULOSKELETAL: Extremities without clubbing, cyanosis, or edema. Pedal pulses appreciated NEUROLOGICAL: Awake and alert. Moves all extremity. Normal speech.no focal neurological deficit A/P Assessment and Plan 71 years old female presented to the ED after having a stressful that family event with Hypertensive urgency: Resolved Non-STEMI with elevated troponin status post heart catheter 4/3 his ultimate in multiple vessels coronary artery disease History of HTN History of hyperlipidemia Diabetes mellitus diet controlled DVT prophylaxis Plan: CVS consulted , there was a concern about CT chest showing multiple calcification however CVS decided on proceeding with surgery ,Plan for CABG today Status post heart catheter 12/23 resulted in multiple vessel coronary artery disease Cycle cardiac enzyme 3 times : 0.23>>6.03>>2.35 Appreciated cardiology consult, requested transfer to [facility] Dr[address] consultant following he discuss with Dr. Child plan for left heart catheter in a.m. Aspirin given, nitroglycerin sublingual Personally reviewed EKG as above no ST changes significant Lovenox full anticoagulation ISS and Accu-Chek, will check A1c Resume home meds for hypertension include clonidine, enalapril, add hydralazine when necessary, hold atenolol due to bradycardia in the 50s Discharge Planning Patient going for CABG today Bri De Jesus MD Dec 25, 2016 08:07
[2016-12-25] MEDS: MUPIROCIN 2% OINT 1 APPLIC/GM SYR EACH NARE SCH ×2 (08:36→21:15)
[2016-12-25] MEDS: cloNIDine HCL 0.2 MG TAB PO SCH ×2 (08:36→21:00)
[2016-12-25] MEDS: SODIUM CHLORIDE 0.9% FLUSH 10 ML FLUSH IV FLUSH SCH ×2 (08:36→21:09)
[2016-12-25] MEDS: ALPRAZolam 0.25 MG TAB PO PRN (08:37)
[2016-12-25] MEDS: ASPIRIN 81 MG CHEW TAB CHEW SCH (08:37)
[2016-12-25] MEDS ORDERED: PANTOPRAZOLE SOD 20 MG DELAYED RELEASE TAB PO SCH (09:00)
[2016-12-25] MEDS ORDERED: POTASSIUM CHLORIDE 40 MEQ/20 ML VIAL ONE (09:46)
[2016-12-25] MEDS ORDERED: ALBUMIN HUMAN 25% 25 GM/100 ML BAGP IV ONE (09:47)
[2016-12-25] MEDS ORDERED: MANNITOL INJ 50 ML ONE (09:48)
[2016-12-25] MEDS ORDERED: HEPARIN SODIUM - IV 10,000 UNITS/10 ML VIAL ONE (09:48)
[2016-12-25] MEDS ORDERED: SODIUM BICARBONATE 8.4% INJ 50 ML ONE (09:49)
[2016-12-25] MEDS ORDERED: CALCIUM CHLORIDE 10% SOLN 1 GRAM/10 ML SYR ONE (09:49)
[2016-12-25] MEDS ORDERED: CARDIOPLEGIC IRR 1,000 ML ONE (11:11)
[2016-12-25] MEDS ORDERED: VANCOMYCIN HCL 1000 MG VIAL OTHER ONE (11:31)
[2016-12-25] MEDS ORDERED: HEPARIN SODIUM - SQ 10,000 UNITS/ML VIAL OTHER ONE ×2 (11:31)
[2016-12-25] MEDS ORDERED: DEXTROSE 50% IN WATER 50 ML SYRINGE ONE (12:55)
[2016-12-25] MEDS ORDERED: LACTATED RINGER'S 1000 ML INJ 500 ML IV PRN (14:08)
[2016-12-25] MEDS ORDERED: CALCIUM CHLORIDE INJ 1 GM in SODIUM CHLORIDE 0.9% INJ 100 ML IV PRN (14:15)
[2016-12-25] MEDS ORDERED: ONDANSETRON HCL 4 MG/2 ML VIAL IV PUSH PRN (14:15)
[2016-12-25] MEDS ORDERED: ACETAMINOPHEN 650 MG SUPP RECTAL PRN (14:15)
[2016-12-25] MEDS ORDERED: DEXTROSE 50% IN WATER 50 ML VIAL(D50) IV PUSH PRN (14:15)
[2016-12-25] MEDS ORDERED: METOPROLOL TARTRATE 5 MG/5 ML VIAL IV PUSH PRN (14:15)
[2016-12-25] MEDS ORDERED: POTASSIUM CHLORIDE 20 MEQ CONTROLLED RELEASE TAB PO PRN ×2 (14:15)
[2016-12-25] MEDS ORDERED: CLEVIDIPINE INJ 50 ML IV SCH (14:15)
[2016-12-25] MEDS ORDERED: hydrALAZINE HCL 20 MG/ML VIAL IV PRN (14:15)
[2016-12-25] MEDS ORDERED: POTASSIUM CHLOR 20 MEQ PREMIX 100 ML IV PRN ×3 (14:15)
[2016-12-25] MEDS ORDERED: ACETAMINOPHEN 325 MG TAB PO PRN (14:15)
[2016-12-25] MEDS ORDERED: Post-op Orders (for Pharmacy) MISC OTHER ONE (14:15)
[2016-12-25] MEDS ORDERED: MAGNESIUM SULFATE INJ 2 GM in SODIUM CHLORIDE 0.9% INJ 100 ML IV PRN ×4 (14:15)
[2016-12-25] MEDS ORDERED: CALCIUM CHLORIDE 10% 1 GRAM/10 ML VIAL IV PRN (14:15)
[2016-12-25] MEDS ORDERED: MIDAZOLAM HCL 5 MG/5 ML VIAL ONE (15:03)
[2016-12-25] MEDS ORDERED: fentaNYL CITRATE 1000 MCG/20 ML VIAL ONE (15:03)
--- NOTE | 2016-12-25 15:41 | RADRPT ---
EXAM DATE/TIME: 12/25/2016 14:57 [facility] COMPARISON: CHEST SINGLE AP, December 21, 2016, 9:34. INDICATIONS : Post op, CABG. MEDICAL HISTORY : Hypertension. Cardiovascular disease. SURGICAL HISTORY : CABG. ENCOUNTER: Initial ACUITY: 2 days PAIN SCORE: Non-responsive. LOCATION: Bilateral upper chest FINDINGS: ET tube, nasogastric tube, mediastinal drain, and left chest drain are in good position. There is no pneumothorax. The lungs are underaerated. Pulmonary vascularity is appropriate. CONCLUSION: Satisfactory postoperative appearance of the chest. Logan Morel MD FACR on December 25, 2016 at 15:37 Board Certified Radiologist. This report was verified electronically.
[2016-12-25] MEDS: ACETAMINOPHEN 1000 MG/100 ML VIAL IV SCH ×2 (16:13→22:48)
[2016-12-25] MEDS ORDERED: ALBUMIN HUMAN 5% 12.5 GM/250 ML BOTTLE IV ONE (16:20)
[2016-12-25] MEDS ORDERED: INSULIN REGULAR (IV INFUSION) 100 UNITS in SODIUM CHLORIDE 0.9% INJ 99 ML IV SCH (17:00)
[2016-12-25] MEDS: AMIODARONE 200 MG TAB PO SCH (21:09)
[2016-12-25] MEDS: ATORVASTATIN 40 MG TAB PO SCH (21:10)
--- NOTE | 2016-12-25 21:13 | PD.CARD.PN ---
Subjective Subjective Remarks Patient seen this morning pre-surgery No chest pain, no shortness of breath Objective Medications Current Medications Medications (Trade) Dose Ordered Sig/Rey Route Start Time Stop Time Status Last Admin (NS Flush) 2 ml BID IV FLUSH 12/21/16 21:00 12/25/16 21:09 (NS Flush) 2 ml UNSCH PRN IV FLUSH 12/21/16 10:45 (Lipitor) 40 mg HS PO 12/21/16 21:00 12/25/16 21:10 (Tenormin) 50 mg DAILY PO 12/21/16 16:00 Hold (Catapres) 0.2 mg BID PO 12/21/16 15:45 12/25/16 08:36 (Glucagon Inj) 1 mg UNSCH PRN OTHER 12/21/16 16:00 12/23/16 15:29 (Bactroban Nasal 2% Oint) 1 applic BID EACH NARE 12/23/16 12:30 12/28/16 12:29 12/25/16 08:36 Acetaminophen 650 mg 650 mg Q4H PRN PO 12/23/16 16:15 12/24/16 04:47 Lactated Ringer's 1,000 ml @ 0 mls/hr Q24H IV 12/24/16 23:00 Sodium Chloride 500 ml @ 30 mls/hr [id number] PRN IV 12/24/16 23:00 12/27/16 22:59 Clevidipine 50 ml @ 0 mls/hr TITRATE IV 12/25/16 14:15 Lactated Ringer's 500 ml @ 500 mls/hr Q1H PRN IV 12/25/16 14:08 (Ancef Inj/NS Inj) 100 ml @ 200 mls/hr Q8H IV 12/25/16 18:00 12/27/16 02:29 12/25/16 17:30 (Aspirin Chew) 81 mg DAILY PO 12/26/16 09:00 (Protonix) 40 mg DAILY@06 PO 12/26/16 06:00 (Cordarone) 200 mg Q12HR PO 12/25/16 21:00 12/25/16 21:09 (Tylenol) 650 mg Q4H PRN PO 12/25/16 14:15 (Tylenol Supp) 650 mg Q4H PRN RECTAL 12/25/16 14:15 (Ofirmev Inj) 1,000 mg Q6H IV 12/25/16 17:00 12/26/16 11:01 12/25/16 16:13 (Percocet 5-325 Mg) 1 tab Q3H PRN PO 12/25/16 14:15 (fentaNYL INJ) 25 mcg Q1H PRN IV 12/25/16 14:15 12/25/16 17:29 (Zofran Inj) 4 mg Q6H PRN IV PUSH 12/25/16 14:15 (Apresoline Inj) 10 mg Q4H PRN IV 12/25/16 14:15 Metoprolol Tartrate 2.5 mg 2.5 mg Q1H PRN IV PUSH 12/25/16 14:15 Potassium Chloride 100 ml @ 50 mls/hr UNSCH PRN IV 12/25/16 14:15 12/25/16 18:06 Potassium Chloride 100 ml @ 50 mls/hr UNSCH PRN IV 12/25/16 14:15 Potassium Chloride 100 ml @ 50 mls/hr UNSCH PRN IV 12/25/16 14:15 Magnesium Sulfate 2 gm/Sodium Chloride 104 ml @ 100 mls/hr UNSCH PRN IV 12/25/16 14:15 Magnesium Sulfate 2 gm/Sodium Chloride 104 ml @ 50 mls/hr UNSCH PRN IV 12/25/16 14:15 (Calcium Chloride Inj/NS Inj) 110 ml @ 100 mls/hr UNSCH PRN IV 12/25/16 14:15 12/25/16 16:37 Calcium Chloride 0.5 gm 0.5 gm UNSCH PRN IV 12/25/16 14:15 (NovoLIN R (IV INFUSION)/NS Inj) 100 ml @ 0 mls/hr TITRATE IV 12/25/16 17:00 (D50w (Vial) Inj) 25 ml UNSCH PRN IV PUSH 12/25/16 14:15 (Paxil) 20 mg DAILY PO 12/26/16 09:00 Vital Signs / I&O Vital Signs Date Time Temp Pulse Resp B/P Pulse Ox O2 Delivery O2 Flow Rate FiO2 12/25/16 16:25 98 Mechanical Ventilator 6.00 Simple Mask 12/25/16 16:10 96 Mechanical Ventilator 50 12/25/16 15:00 84 12/25/16 15:00 60 12/25/16 15:00 84 12/25/16 15:00 99 Mechanical Ventilator 60 12/25/16 15:00 97.5 84 8 112/62 99 113/52 12/25/16 08:00 95 Room Air 12/25/16 08:00 98.5 61 20 154/85 95 12/25/16 07:00 57 12/25/16 06:00 58 12/25/16 05:00 60 12/25/16 04:00 61 12/25/16 03:00 96 Room Air 12/25/16 03:00 98.5 65 18 159/85 96 12/25/16 03:00 64 12/25/16 02:00 62 12/25/16 01:00 60 12/25/16 00:00 62 12/24/16 23:00 98 Room Air 12/24/16 23:00 67 12/24/16 23:00 98.8 64 20 160/69 98 12/24/16 22:00 67 I/O 12/24/16 12/24/16 12/24/16 12/25/16 12/25/16 12/25/16 07:00 15:00 23:00 07:00 15:00 23:00 Intake Total 360 ml 810 ml 240 ml 2510 ml Output Total 800 ml 400 ml 1190 ml Balance 360 ml 10 ml -160 ml 1320 ml Intake Oral 360 ml 810 ml 240 ml IV Total 2510 ml Output Urine Total 800 ml 400 ml 670 ml Gastric Drainage Total 0 ml Chest Tube Drainage Total 520 ml # Voids 2 # Bowel Movements 0 0 Physical Exam GENERAL: Anxious, NAD, AAOx3 SKIN: Warm and dry. HEAD: Atraumatic. Normocephalic. EYES: Pupils equal and round. No scleral icterus. No injection or drainage. ENT: No nasal bleeding or discharge. Mucous membranes pink and moist. NECK: Trachea midline. No JVD. CARDIOVASCULAR: Regular rate and rhythm. RESPIRATORY: No accessory muscle use. Clear to auscultation. Breath sounds equal bilaterally. GASTROINTESTINAL: Abdomen soft, non-tender, nondistended. Hepatic and splenic margins not palpable. MUSCULOSKELETAL: Extremities without clubbing, cyanosis, or edema. No obvious deformities. Right radial no hematoma, neurovascularly intact distally, small amount of ecchymosis NEUROLOGICAL: Awake and alert. No obvious cranial nerve deficits. Motor grossly within normal limits. Five out of 5 muscle strength in the arms and legs. Normal speech. PSYCHIATRIC: Appropriate mood and affect; insight and judgment normal. Assessment and Plan Problem List: (1) [place], acute, non ST segment elevation (2) Hypertensive emergency (3) CAD (coronary artery disease) (4) Multi-vessel coronary artery stenosis (5) DM (diabetes mellitus) Assessment and Plan 1) MVCAD by cardiac cath... Plan for CABG today 2) ASA/Statin... BB currently on hold due to bradycardia... will see how she does and consider Lopressor 12.5mg post-operatively 3) Right radial small bleed, pressure held, no hematoma, minimal ecchymosis 4) Will see post-operatively Problem Qualifiers (1) CAD (coronary artery disease): Qualified Code: I25.110 - Coronary artery disease involving enterprise coronary artery of enterprise heart with unstable angina pectoris Rubin Child DO Dec 25, 2016 21:13
[2016-12-25] MEDS: LACTATED RINGER'S 1000 ML INJ 1,000 ML IV SCH (23:00)
[2016-12-26] VITALS (18 sets, daily range): BP systolic 98–157; BP diastolic 47–88; PULSE 85–135; RESP 18–20; TEMP 97.4–98.7; O2SAT 92–96
[2016-12-26] MEDS: oxyCODONE/ACETAMINOPHEN 5 MG/325 MG TAB PO PRN ×4 (02:37→21:08)
--- NOTE | 2016-12-26 05:15 | RADRPT ---
EXAM DATE/TIME: 12/26/2016 04:17 [facility] COMPARISON: CHEST SINGLE AP, December 25, 2016, 14:57. INDICATIONS : Shortness of breath, possible pulmonary disease. MEDICAL HISTORY : Hypertension. Cardiovascular disease. SURGICAL HISTORY : CABG. ENCOUNTER: Subsequent ACUITY: 3 days PAIN SCORE: 8/10 LOCATION: Bilateral chest FINDINGS: A single portable frontal view of the chest shows no interval change. Median sternotomy wires, thorac ostomy tubes, right-sided central line are unchanged. The endotracheal tube and nasogastric tube have been removed. Small bilateral pleural effusions and bibasilar consolidation is stable. Heart remains mildly enlarged. No pneumothorax. CONCLUSION: 1. Interval extubation. 2. No pneumothorax. 3. Small bilateral pleural effusions and bibasilar consolidation. Pb Larsen Jr., MD on December 26, 2016 at 5:12 Board Certified Radiologist. This report was verified electronically.
[2016-12-26] MEDS: PANTOPRAZOLE SOD 40 MG DELAYED RELEASE TAB PO SCH (05:27)
[2016-12-26] MEDS: ACETAMINOPHEN 1000 MG/100 ML VIAL IV SCH ×2 (05:27→11:39)
[2016-12-26 05:58] LABS: HEMATOCRIT 24.1 % (35.0-46.0); MEAN CELL VOLUME 90.8 FL (80.0-100.0); MEAN CORPUSCULAR HEMOGLOBIN 29.1 PG (27.0-34.0); MEAN CORPUSCULAR HGB CONC 32.1 % (32.0-36.0); PLATELET COUNT 157 TH/MM3 (150-450); RED BLOOD COUNT 2.66 MIL/MM3 (4.00-5.30); REVIEW FLAG FINAL; WHITE BLOOD COUNT 15.3 TH/MM3 (4.0-11.0)
[2016-12-26 06:22] LABS: BICARBONATE 22.6 MEQ/L (21.0-32.0); MAGNESIUM 1.7 MG/DL (1.5-2.5); POTASSIUM 4.6 MEQ/L (3.5-5.1)
[2016-12-26] MEDS ORDERED: SOD PHOSPHATE/SOD BIPHOSPHATE (ADULT) ENEMA 133ML RECTAL PRN (08:45)
[2016-12-26] MEDS ORDERED: BISACODYL 10 MG SUPP RECTAL PRN (08:45)
[2016-12-26] MEDS ORDERED: DEXTROSE 50% IN WATER 50 ML VIAL(D50) IV PRN (08:45)
[2016-12-26] MEDS ORDERED: FUROSEMIDE 20 MG/2 ML VIAL IV PUSH ONE (08:45)
[2016-12-26] MEDS ORDERED: GLUCAGON 1 MG/ML VIAL OTHER PRN (08:45)
[2016-12-26] MEDS: SODIUM CHLORIDE 0.9% FLUSH 10 ML FLUSH IV FLUSH SCH ×2 (09:00→21:03)
[2016-12-26] MEDS ORDERED: METOPROLOL TARTRATE 25 MG TAB PO SCH (09:00)
[2016-12-26] MEDS: MUPIROCIN 2% OINT 1 APPLIC/GM SYR EACH NARE SCH ×2 (09:00→21:00)
[2016-12-26] MEDS ORDERED: PILL SPLITTER OTHER PRN (09:00)
[2016-12-26] MEDS: MAGNESIUM HYDROXIDE SUSP 30 ML CUP PO SCH (09:29)
[2016-12-26] MEDS: ASPIRIN 81 MG CHEW TAB PO SCH (09:29)
[2016-12-26] MEDS: cloNIDine HCL 0.2 MG TAB PO SCH ×2 (09:29→21:03)
[2016-12-26] MEDS: AMIODARONE 200 MG TAB PO SCH ×2 (09:29→21:03)
[2016-12-26] MEDS: MULTIVITAMINS/MINERALS THERAPEUTIC TAB PO SCH (09:43)
[2016-12-26] MEDS: PARoxetine HCL 20 MG TAB PO SCH (09:43)
--- NOTE | 2016-12-26 09:47 | PD.CARD.PN ---
Subjective Subjective Remarks Up in the chair No shortness of breath, appropriate chest pain Objective Medications Current Medications Medications (Trade) Dose Ordered Sig/Rey Route Start Time Stop Time Status Last Admin (NS Flush) 2 ml BID IV FLUSH 12/21/16 21:00 12/25/16 21:09 (NS Flush) 2 ml UNSCH PRN IV FLUSH 12/21/16 10:45 (Lipitor) 40 mg HS PO 12/21/16 21:00 12/25/16 21:10 (Catapres) 0.2 mg BID PO 12/21/16 15:45 12/26/16 09:29 (Bactroban Nasal 2% Oint) 1 applic BID EACH NARE 12/23/16 12:30 12/28/16 12:29 12/25/16 21:15 Acetaminophen 650 mg 650 mg Q4H PRN PO 12/23/16 16:15 12/24/16 04:47 (Ancef Inj/NS Inj) 100 ml @ 200 mls/hr Q8H IV 12/25/16 18:00 12/27/16 02:29 12/26/16 09:30 (Aspirin Chew) 81 mg DAILY PO 12/26/16 09:00 12/26/16 09:29 (Protonix) 40 mg DAILY@06 PO 12/26/16 06:00 12/26/16 05:27 (Cordarone) 200 mg Q12HR PO 12/25/16 21:00 12/26/16 09:29 (Tylenol) 650 mg Q4H PRN PO 12/25/16 14:15 (Tylenol Supp) 650 mg Q4H PRN RECTAL 12/25/16 14:15 (Ofirmev Inj) 1,000 mg Q6H IV 12/25/16 17:00 12/26/16 11:01 12/26/16 05:27 (Percocet 5-325 Mg) 1 tab Q3H PRN PO 12/25/16 14:15 12/26/16 07:50 (fentaNYL INJ) 25 mcg Q1H PRN IV 12/25/16 14:15 12/25/16 17:29 (Zofran Inj) 4 mg Q6H PRN IV PUSH 12/25/16 14:15 (Apresoline Inj) 10 mg Q4H PRN IV 12/25/16 14:15 Metoprolol Tartrate 2.5 mg 2.5 mg Q1H PRN IV PUSH 12/25/16 14:15 Magnesium Sulfate 2 gm/Sodium Chloride 104 ml @ 100 mls/hr UNSCH PRN IV 12/25/16 14:15 (Magnesium Sulfate Inj/NS Inj) 104 ml @ 50 mls/hr UNSCH PRN IV 12/25/16 14:15 12/26/16 07:51 (Calcium Chloride Inj) 0.5 gm UNSCH PRN IV 12/25/16 14:15 (Paxil) 20 mg DAILY PO 12/26/16 09:00 (Colace) 100 mg BID PO 12/26/16 21:00 (Theragran M Tab) 1 tab DAILY PO 12/26/16 09:00 (Milk Of Magnesia Liq) 30 ml DAILY PO 12/26/16 09:00 12/26/16 09:29 (Miralax) 17 gm DAILY PO 12/27/16 09:00 (Senokot) 8.6 mg HS PO 12/26/16 21:00 (Fleets Enema (Adult)) 133 ml UNSCH PRN RECTAL 12/26/16 08:45 (Lopressor) 12.5 mg BID PO 12/26/16 09:00 (NovoLOG SUPPLEMENTAL SCALE) 1 02,06,10,14,18,22 SQ 12/26/16 10:00 12/27/16 06:01 (D50w (Vial) Inj) 25 ml UNSCH PRN IV 12/26/16 08:45 (Glucagon Inj) 1 mg UNSCH PRN OTHER 12/26/16 08:45 (Pill Splitter) 1 ea UNSCH PRN OTHER 12/26/16 09:00 Vital Signs / I&O Vital Signs Date Time Temp Pulse Resp B/P Pulse Ox O2 Delivery O2 Flow Rate FiO2 12/26/16 08:14 94 Nasal Cannula 5.00 12/26/16 07:00 113 12/26/16 07:00 98.7 98 18 96 119/54 12/26/16 07:00 96 Nasal Cannula 5.00 12/26/16 04:00 96 12/26/16 04:00 96 Nasal Cannula 4.00 12/26/16 04:00 98.4 98 20 96 134/60 12/26/16 03:40 18 12/26/16 00:00 97.4 102 20 103/53 94 98/47 12/26/16 00:00 94 Nasal Cannula 4.00 12/26/16 00:00 98 12/25/16 23:30 22 12/25/16 21:00 99 Nasal Cannula 4.00 12/25/16 20:00 100 Simple Mask 10.00 12/25/16 20:00 96.3 93 20 102/66 98 116/61 12/25/16 19:15 98 12/25/16 17:20 94 Mask 10 12/25/16 17:20 94 Simple Mask 10.00 12/25/16 16:35 96 50 12/25/16 16:25 98 Mechanical Ventilator 6.00 Simple Mask 12/25/16 16:10 96 Mechanical Ventilator 50 12/25/16 15:00 84 12/25/16 15:00 60 12/25/16 15:00 84 12/25/16 15:00 97 60 12/25/16 15:00 99 Mechanical Ventilator 60 12/25/16 15:00 97.5 84 8 112/62 99 113/52 I/O 12/25/16 12/25/16 12/25/16 12/26/16 12/26/16 12/26/16 07:00 15:00 23:00 07:00 15:00 23:00 Intake Total 240 ml 2510 ml 1286 ml Output Total 400 ml 1190 ml 1030 ml Balance -160 ml 1320 ml 256 ml Intake Oral 240 ml 120 ml IV Total 2510 ml 1166 ml Output Urine Total 400 ml 670 ml 650 ml Gastric Drainage Total 0 ml Chest Tube Drainage Total 520 ml 380 ml # Bowel Movements 0 0 Physical Exam GENERAL: NAD, AAOx3 SKIN: Warm and dry. HEAD: Atraumatic. Normocephalic. EYES: Pupils equal and round. No scleral icterus. No injection or drainage. ENT: No nasal bleeding or discharge. Mucous membranes pink and moist. NECK: Trachea midline. No JVD. CARDIOVASCULAR: Regular rate and rhythm. Sternotomy with wound vac RESPIRATORY: No accessory muscle use. Decreased breath sounds bilaterally GASTROINTESTINAL: Abdomen soft, non-tender, nondistended. Hepatic and splenic margins not palpable. MUSCULOSKELETAL: Extremities without clubbing, cyanosis, or edema. No obvious deformities. NEUROLOGICAL: Awake and alert. No obvious cranial nerve deficits. Motor grossly within normal limits. Five out of 5 muscle strength in the arms and legs. Normal speech. PSYCHIATRIC: Appropriate mood and affect; insight and judgment normal. Laboratory Laboratory Tests Test 12/26/16 05:30 White Blood Count 15.3 TH/MM3 Red Blood Count 2.66 MIL/MM3 Hemoglobin 7.7 GM/DL Hematocrit 24.1 % Mean Corpuscular Volume 90.8 FL Mean Corpuscular Hemoglobin 29.1 PG Mean Corpuscular Hemoglobin 32.1 % Concent Red Cell Distribution Width 14.0 % Platelet Count 157 TH/MM3 Mean Platelet Volume 8.0 FL Sodium Level 142 MEQ/L Potassium Level 4.6 MEQ/L Chloride Level 110 MEQ/L Carbon Dioxide Level 22.6 MEQ/L Anion Gap 9 MEQ/L Blood Urea Nitrogen 15 MG/DL Creatinine 0.66 MG/DL Estimat Glomerular Filtration 89 ML/MIN Rate Random Glucose 144 MG/DL Calcium Level 7.8 MG/DL Magnesium Level 1.7 MG/DL Assessment and Plan Problem List: (1) [place], acute, non ST segment elevation (2) Hypertensive emergency (3) CAD (coronary artery disease) (4) Multi-vessel coronary artery stenosis (5) DM (diabetes mellitus) (6) S/P CABG x 3 Assessment and Plan 1) s/p CABGx3 (VERDUZCO to LAD, SVG to OM, SVG to PDA) POD #1 2) ASA/Statin/BB/Amio 3) Doing well, up out of bed 4) Plan for 1 unit PRBC today 5) IS Problem Qualifiers (1) CAD (coronary artery disease): Qualified Code: I25.110 - Coronary artery disease involving [place] coronary artery of [place] heart with unstable angina pectoris Rubin Child DO Dec 26, 2016 09:47
[2016-12-26] MEDS: INSULIN ASPART SUPPLEMENTAL SCALE SQ SCH ×4 (09:54→21:03)
--- NOTE | 2016-12-26 12:49 | EKG ---
Date Performed: 12/26/2016 Time Performed: 01:58:44 PTAGE: 71 years EKG: sinus rhytm Anterolateral T wave changes may be due to myocardial ischemia Low QRS voltages in precordial leads Abnormal ECG PREVIOUS TRACING : 12/21/2016 15.53 Compared to the previous tracing T wave abnormalities is ne w DOCTOR: Eric Tapia Interpretating Date/Time 12/26/2016 12:48:09
[2016-12-26] MEDS: RESP: ALBUTEROL 2.5 MG/IPRATROPIUM 0.5 MG NEB (SCH) NEB ×2 (13:38→20:28)
--- NOTE | 2016-12-26 14:01 | HHI.PR ---
Subjective Remarks Pain overall control. No active shortness of breath. Feeling tired. Objective Vitals Vital Signs Date Time Temp Pulse Resp B/P Pulse Ox O2 Delivery O2 Flow Rate FiO2 12/26/16 11:00 92 Nasal Cannula 6.00 12/26/16 11:00 98.2 85 18 92 146/61 12/26/16 11:00 94 12/26/16 08:14 94 Nasal Cannula 5.00 12/26/16 07:00 113 12/26/16 07:00 98.7 98 18 96 119/54 12/26/16 07:00 96 Nasal Cannula 5.00 12/26/16 04:00 96 12/26/16 04:00 96 Nasal Cannula 4.00 12/26/16 04:00 98.4 98 20 96 134/60 12/26/16 03:40 18 12/26/16 00:00 97.4 102 20 103/53 94 98/47 12/26/16 00:00 94 Nasal Cannula 4.00 12/26/16 00:00 98 12/25/16 23:30 22 12/25/16 21:00 99 Nasal Cannula 4.00 12/25/16 20:00 100 Simple Mask 10.00 12/25/16 20:00 96.3 93 20 102/66 98 116/61 12/25/16 19:15 98 12/25/16 17:20 94 Mask 10 12/25/16 17:20 94 Simple Mask 10.00 12/25/16 16:35 96 50 12/25/16 16:25 98 Mechanical Ventilator 6.00 Simple Mask 12/25/16 16:10 96 Mechanical Ventilator 50 12/25/16 15:00 84 12/25/16 15:00 60 12/25/16 15:00 84 12/25/16 15:00 97 60 12/25/16 15:00 99 Mechanical Ventilator 60 12/25/16 15:00 97.5 84 8 112/62 99 113/52 I/O 12/25/16 12/25/16 12/25/16 12/26/16 12/26/16 12/26/16 07:00 15:00 23:00 07:00 15:00 23:00 Intake Total 240 ml 2510 ml 1286 ml Output Total 400 ml 1190 ml 1030 ml Balance -160 ml 1320 ml 256 ml Intake Oral 240 ml 120 ml IV Total 2510 ml 1166 ml Output Urine Total 400 ml 670 ml 650 ml Gastric Drainage Total 0 ml Chest Tube Drainage Total 520 ml 380 ml # Bowel Movements 0 0 Result Diagram: 12/26/1652912/26/16529 Objective Remarks GENERAL: This is a well-nourished, well-developed patient, in no apparent distress. CARDIOVASCULAR: Regular rate and rhythm RESPIRATORY: Clear to auscultation. Breath sounds equal bilaterally. No wheezes , rales, or rhonchi. GASTROINTESTINAL: Abdomen soft, non-tender, nondistended. Normal active bowel sounds MUSCULOSKELETAL: Extremities without clubbing, cyanosis, trace edema with bilateral SCDs NEURO: Alert & Oriented x4 to person, place, time, situation. Moves all ext x4 A/P Assessment and Plan Non-STEMI with elevated troponin status post heart catheter 12/23 with multiple vessels coronary artery diseasestatus post operative day #1 CABG 3continue aspirin, beta anton, statin, Continue postoperative care, pain control, rehabilitation per cardiothoracic surgery. Cardiology currently also following History of HTN, presenting hypertensive urgency now resolvedblood pressure currently controlled on beta anton History of hyperlipidemiacontinue statin Diabetes mellitus, type II diet controlledcontinue Accu-Cheks with sliding scale insulin DVT prophylaxisheparin/SCDs Cynthia Farah MD Dec 26, 2016 14:01
--- NOTE | 2016-12-26 16:09 | PD.CAR.PN ---
CVT Progress Note CVT: POD #: 1 Subjective/Hospital Course: 71/ female presented with SOB and chest tightness, after hearing news of her Godmother passing away. Her trop was 0.23/ + NSTEMI underwent heart cath multivessel disease LAD 70%, Circ 70%, RCA 50% proximal and mid distal 90% CT chest plaquing and calcification of aortic annulus , EF 60% PMH: DM, HTN 12/24 no c/o of chest pain scheduled for surgery in am CABG x 4 dc lovenox after this pm dose 12/25 surgery: CABG x 3 right EVH extubated after surgery 12/26 up in chair, on nasal cannula gentle diuresis on BB , statin ASA NSR leave chest tube in 380cc/ 12 hrs HGB 7.7/ transfuse one unit PRBC diuresis after blood infused Objective: Vital Signs Date Time Temp Pulse Resp B/P Pulse Ox O2 Delivery O2 Flow Rate FiO2 12/26/16 15:00 92 Nasal Cannula 6.00 12/26/16 15:00 88 12/26/16 11:00 92 Nasal Cannula 6.00 12/26/16 11:00 98.2 85 18 92 146/61 12/26/16 11:00 94 12/26/16 08:14 94 Nasal Cannula 5.00 12/26/16 07:00 113 12/26/16 07:00 98.7 98 18 96 119/54 12/26/16 07:00 96 Nasal Cannula 5.00 12/26/16 04:00 96 12/26/16 04:00 96 Nasal Cannula 4.00 12/26/16 04:00 98.4 98 20 96 134/60 12/26/16 03:40 18 12/26/16 00:00 97.4 102 20 103/53 94 98/47 12/26/16 00:00 94 Nasal Cannula 4.00 12/26/16 00:00 98 12/25/16 23:30 22 12/25/16 21:00 99 Nasal Cannula 4.00 12/25/16 20:00 100 Simple Mask 10.00 12/25/16 20:00 96.3 93 20 102/66 98 116/61 12/25/16 19:15 98 12/25/16 17:20 94 Mask 10 12/25/16 17:20 94 Simple Mask 10.00 12/25/16 16:35 96 50 12/25/16 16:25 98 Mechanical Ventilator 6.00 Simple Mask 12/25/16 16:10 96 Mechanical Ventilator 50 Labs: Laboratory Tests Test 12/26/16 12/26/16 05:30 09:15 White Blood Count 15.3 TH/MM3 (4.0-11.0) Red Blood Count 2.66 MIL/MM3 (4.00-5.30) Hemoglobin 7.7 GM/DL (11.6-15.3) Hematocrit 24.1 % (35.0-46.0) Mean Corpuscular Volume 90.8 FL (80.0-100.0) Mean Corpuscular Hemoglobin 29.1 PG (27.0-34.0) Mean Corpuscular Hemoglobin 32.1 % Concent (32.0-36.0) Red Cell Distribution Width 14.0 % (11.6-17.2) Platelet Count 157 TH/MM3 (150-450) Mean Platelet Volume 8.0 FL (7.0-11.0) Sodium Level 142 MEQ/L (136-145) Potassium Level 4.6 MEQ/L (3.5-5.1) Chloride Level 110 MEQ/L (98-107) Carbon Dioxide Level 22.6 MEQ/L (21.0-32.0) Anion Gap 9 MEQ/L (5-15) Blood Urea Nitrogen 15 MG/DL (7-18) Creatinine 0.66 MG/DL (0.50-1.00) Estimat Glomerular Filtration 89 ML/MIN (>89) Rate Random Glucose 144 MG/DL (74-106) Calcium Level 7.8 MG/DL (8.5-10.1) Magnesium Level 1.7 MG/DL (1.5-2.5) Blood Type B POSITIVE Antibody Screen NEGATIVE Crossmatch Leukocyte-Reduced Red Blood Cells Blood Bank Comment Result Diagram: 12/26/1652912/26/16529 Telemetry: NSR (1) [place], acute, non ST segment elevation (2) CAD (coronary artery disease) (3) S/P CABG x 3 Plan: ASA, statin , BB , amiodarone OOB/ PT/OT eval for rehab at discharge nebs, ezpap acapella wean off 02 (4) Multi-vessel coronary artery stenosis (5) DM (diabetes mellitus) Plan: diabetic diet, insulin sliding scale resume home meds (6) Blood loss anemia Plan: transfuse one unit PRBC Problem Qualifiers (1) CAD (coronary artery disease): Qualified Code: I25.110 - Coronary artery disease involving [place] coronary artery of [place] heart with unstable angina pectoris Oanh Gary Dec 26, 2016 16:09
[2016-12-26] MEDS: METOPROLOL TARTRATE 25 MG TAB PO SCH (21:02)
[2016-12-26] MEDS: DOCUSATE SODIUM 100 MG CAP PO SCH (21:02)
[2016-12-26] MEDS: SENNOSIDES 8.6 MG TAB PO SCH (21:02)
[2016-12-26] MEDS: ATORVASTATIN 40 MG TAB PO SCH (21:03)
[2016-12-26] MEDS ORDERED: AMIODARONE 150 MG/D5W 97 ML BOLUS 10 MINUTES IV ONE ×2 (23:15)
[2016-12-26] MEDS: MAGNESIUM SULFATE 1 GM PREMIX 100 ML IV SCH (23:29)
[2016-12-27] VITALS (30 sets, daily range): BP systolic 95–126; BP diastolic 55–64; PULSE 7–114; RESP 16–20; TEMP 97.6–98; O2SAT 92–97
[2016-12-27] MEDS: MAGNESIUM SULFATE 1 GM PREMIX 100 ML IV SCH (00:30)
[2016-12-27] MEDS ORDERED: AMIODARONE 150 MG/D5W 97 ML BOLUS 60 MINUTES IV ONE ×2 (00:30)
[2016-12-27] MEDS: oxyCODONE/ACETAMINOPHEN 5 MG/325 MG TAB PO PRN ×2 (01:25→08:37)
[2016-12-27] MEDS: INSULIN ASPART SUPPLEMENTAL SCALE SQ SCH ×5 (01:39→21:00)
[2016-12-27 05:34] LABS: AUTOMATED NEUTROPHIL # 14.2 TH/MM3 (1.8-7.7); HEMATOCRIT 23.8 % (35.0-46.0); HEMO FLAGS DIFF FINAL; MEAN CELL VOLUME 88.2 FL (80.0-100.0); MEAN CORPUSCULAR HEMOGLOBIN 29.7 PG (27.0-34.0); MEAN CORPUSCULAR HGB CONC 33.7 % (32.0-36.0); MONO % 10.7 % (0.0-8.0); NEUT % 78.3 % (16.0-70.0); PLATELET COUNT 166 TH/MM3 (150-450); RED CELL DISTRIBUTION WIDTH 15.4 % (11.6-17.2); WHITE BLOOD COUNT 18.2 TH/MM3 (4.0-11.0)
[2016-12-27] MEDS: AMIODARONE 200 MG TAB PO SCH ×3 (05:34→21:23)
[2016-12-27] MEDS: PANTOPRAZOLE SOD 40 MG DELAYED RELEASE TAB PO SCH (05:34)
[2016-12-27 06:17] LABS: BICARBONATE 27.1 MEQ/L (21.0-32.0); MAGNESIUM 2.6 MG/DL (1.5-2.5); POTASSIUM 4.6 MEQ/L (3.5-5.1)
[2016-12-27] MEDS: RESP: ALBUTEROL 2.5 MG/IPRATROPIUM 0.5 MG NEB (SCH) NEB ×3 (07:52→19:25)
[2016-12-27] MEDS: MUPIROCIN 2% OINT 1 APPLIC/GM SYR EACH NARE SCH ×2 (08:36→21:00)
[2016-12-27] MEDS: PARoxetine HCL 20 MG TAB PO SCH (08:37)
[2016-12-27] MEDS: METOPROLOL TARTRATE 25 MG TAB PO SCH ×2 (08:37→21:24)
[2016-12-27] MEDS: ASPIRIN 81 MG CHEW TAB PO SCH (08:38)
[2016-12-27] MEDS: MULTIVITAMINS/MINERALS THERAPEUTIC TAB PO SCH (08:38)
[2016-12-27] MEDS: cloNIDine HCL 0.2 MG TAB PO SCH (08:38)
[2016-12-27] MEDS: DOCUSATE SODIUM 100 MG CAP PO SCH ×2 (08:38→21:23)
[2016-12-27] MEDS: SODIUM CHLORIDE 0.9% FLUSH 10 ML FLUSH IV FLUSH SCH ×2 (08:39→21:23)
[2016-12-27] MEDS: POLYETHYLENE GLYCOL 17 GM PKG PO SCH (11:41)
[2016-12-27] MEDS: MAGNESIUM HYDROXIDE SUSP 30 ML CUP PO SCH (11:41)
--- NOTE | 2016-12-27 11:59 | PD.CARD.PN ---
Subjective Subjective Remarks No chest pain, no shortness of breath Went into Afib last night Objective Medications Current Medications Medications (Trade) Dose Ordered Sig/Rey Route Start Time Stop Time Status Last Admin (NS Flush) 2 ml BID IV FLUSH 12/21/16 21:00 12/27/16 08:39 (NS Flush) 2 ml UNSCH PRN IV FLUSH 12/21/16 10:45 (Lipitor) 40 mg HS PO 12/21/16 21:00 12/26/16 21:03 (Catapres) 0.2 mg BID PO 12/21/16 15:45 12/27/16 08:38 (Bactroban Nasal 2% Oint) 1 applic BID EACH NARE 12/23/16 12:30 12/28/16 12:29 12/25/16 21:15 (Tylenol) 650 mg Q4H PRN PO 12/23/16 16:15 12/24/16 04:47 (Aspirin Chew) 81 mg DAILY PO 12/26/16 09:00 12/27/16 08:38 (Protonix) 40 mg DAILY@06 PO 12/26/16 06:00 12/27/16 05:34 (Tylenol) 650 mg Q4H PRN PO 12/25/16 14:15 (Tylenol Supp) 650 mg Q4H PRN RECTAL 12/25/16 14:15 (Percocet 5-325 Mg) 1 tab Q3H PRN PO 12/25/16 14:15 12/27/16 08:37 (fentaNYL INJ) 25 mcg Q1H PRN IV 12/25/16 14:15 12/25/16 17:29 (Zofran Inj) 4 mg Q6H PRN IV PUSH 12/25/16 14:15 12/27/16 08:38 (Apresoline Inj) 10 mg Q4H PRN IV 12/25/16 14:15 Metoprolol Tartrate 2.5 mg 2.5 mg Q1H PRN IV PUSH 12/25/16 14:15 Magnesium Sulfate 2 gm/Sodium Chloride 104 ml @ 100 mls/hr UNSCH PRN IV 12/25/16 14:15 (Magnesium Sulfate Inj/NS Inj) 104 ml @ 50 mls/hr UNSCH PRN IV 12/25/16 14:15 12/26/16 07:51 (Calcium Chloride Inj) 0.5 gm UNSCH PRN IV 12/25/16 14:15 (Paxil) 20 mg DAILY PO 12/26/16 09:00 12/27/16 08:37 (Colace) 100 mg BID PO 12/26/16 21:00 12/27/16 08:38 (Theragran M Tab) 1 tab DAILY PO 12/26/16 09:00 12/27/16 08:38 (Milk Of Magnesia Liq) 30 ml DAILY PO 12/26/16 09:00 12/27/16 11:41 (Miralax) 17 gm DAILY PO 12/27/16 09:00 12/27/16 11:41 (Senokot) 8.6 mg HS PO 12/26/16 21:00 12/26/16 21:02 (Fleets Enema (Adult)) 133 ml UNSCH PRN RECTAL 12/26/16 08:45 (D50w (Vial) Inj) 25 ml UNSCH PRN IV 12/26/16 08:45 (Glucagon Inj) 1 mg UNSCH PRN OTHER 12/26/16 08:45 (Pill Splitter) 1 ea UNSCH PRN OTHER 12/26/16 09:00 (Lopressor) 25 mg BID PO 12/26/16 21:00 12/27/16 08:37 (Cordarone) 400 mg Q8HR PO 12/27/16 06:00 12/27/16 05:34 Vital Signs / I&O Vital Signs Date Time Temp Pulse Resp B/P Pulse Ox O2 Delivery O2 Flow Rate FiO2 12/27/16 10:22 93 3.00 12/27/16 07:54 96 Nasal Cannula 3.00 12/27/16 07:30 98.0 103 18 126/64 93 12/27/16 07:00 103 12/27/16 06:00 98 12/27/16 05:00 97.9 105 18 112/55 95 12/27/16 05:00 98 12/27/16 04:42 96 Nasal Cannula 2.00 12/27/16 04:00 110 12/27/16 02:56 107 12/27/16 02:00 112 12/27/16 01:00 112 12/27/16 00:00 114 12/26/16 23:48 96 Nasal Cannula 2.00 12/26/16 23:48 97.9 112 18 134/76 95 12/26/16 23:00 135 12/26/16 22:11 18 12/26/16 22:00 128 12/26/16 21:00 90 12/26/16 20:33 94 Nasal Cannula 6.00 12/26/16 20:00 96 Nasal Cannula 2.00 12/26/16 20:00 97.9 86 18 151/70 96 12/26/16 20:00 88 12/26/16 19:00 85 12/26/16 18:00 88 12/26/16 17:00 90 12/26/16 16:00 96 12/26/16 15:45 102 12/26/16 15:30 97.8 103 18 157/88 93 12/26/16 15:00 92 Nasal Cannula 6.00 12/26/16 15:00 88 I/O 12/26/16 12/26/16 12/26/16 12/27/16 12/27/16 12/27/16 07:00 15:00 23:00 07:00 15:00 23:00 Intake Total 1286 ml 1400 ml Output Total 1030 ml 1040 ml 500 ml Balance 256 ml 360 ml -500 ml Intake Oral 120 ml 600 ml IV Total 1166 ml 800 ml Output Urine Total 650 ml 690 ml 400 ml Chest Tube Drainage Total 380 ml 350 ml 100 ml # Bowel Movements 0 0 Physical Exam GENERAL: NAD, AAOx3 SKIN: Warm and dry. HEAD: Atraumatic. Normocephalic. EYES: Pupils equal and round. No scleral icterus. No injection or drainage. ENT: No nasal bleeding or discharge. Mucous membranes pink and moist. NECK: Trachea midline. No JVD. CARDIOVASCULAR: Irregularly irregular. Sternotomy with wound vac RESPIRATORY: No accessory muscle use. Decreased breath sounds bilaterally GASTROINTESTINAL: Abdomen soft, non-tender, nondistended. Hepatic and splenic margins not palpable. MUSCULOSKELETAL: Extremities without clubbing, cyanosis, or edema. No obvious deformities. Bilateral radial with ecchymosis, edema NEUROLOGICAL: Awake and alert. No obvious cranial nerve deficits. Motor grossly within normal limits. Five out of 5 muscle strength in the arms and legs. Normal speech. PSYCHIATRIC: Appropriate mood and affect; insight and judgment normal. Laboratory Laboratory Tests Test 12/27/16 05:20 White Blood Count 18.2 TH/MM3 Red Blood Count 2.70 MIL/MM3 Hemoglobin 8.0 GM/DL Hematocrit 23.8 % Mean Corpuscular Volume 88.2 FL Mean Corpuscular Hemoglobin 29.7 PG Mean Corpuscular Hemoglobin 33.7 % Concent Red Cell Distribution Width 15.4 % Platelet Count 166 TH/MM3 Mean Platelet Volume 8.0 FL Neutrophils (%) (Auto) 78.3 % Lymphocytes (%) (Auto) 11.0 % Monocytes (%) (Auto) 10.7 % Eosinophils (%) (Auto) 0.0 % Basophils (%) (Auto) 0.0 % Neutrophils # (Auto) 14.2 TH/MM3 Lymphocytes # (Auto) 2.0 TH/MM3 Monocytes # (Auto) 1.9 TH/MM3 Eosinophils # (Auto) 0.0 TH/MM3 Basophils # (Auto) 0.0 TH/MM3 CBC Comment DIFF FINAL Differential Comment Sodium Level 140 MEQ/L Potassium Level 4.6 MEQ/L Chloride Level 107 MEQ/L Carbon Dioxide Level 27.1 MEQ/L Anion Gap 6 MEQ/L Blood Urea Nitrogen 22 MG/DL Creatinine 0.85 MG/DL Estimat Glomerular Filtration 66 ML/MIN Rate Random Glucose 128 MG/DL Calcium Level 7.7 MG/DL Magnesium Level 2.6 MG/DL Assessment and Plan Problem List: (1) [place], acute, non ST segment elevation (2) CAD (coronary artery disease) (3) S/P CABG x 3 (4) Multi-vessel coronary artery stenosis (5) DM (diabetes mellitus) (6) Blood loss anemia (7) Postoperative atrial fibrillation Assessment and Plan 1) s/p CABGx3 (VERDUZCO to LAD, SVG to OM, SVG to PDA) POD #2 2) ASA/Statin/BB/Amio 3) Heart rates controlled on BB/Amio 4) Will hold off on anticoagulation at this time with anemia and recent chest tubes pulled, discussed with CT surgery 5) When ok with CT surgery would start Eliquis as [id number] score is 5 (HTN, Age, DM, Recent [place], Female). Discussed this with the patient and her daughter, understand the reasoning and willing to be placed on anticoagulation 6) Will plan on seeing Friday if still here, Dr. Fry is rounding this weekend if there are further questions Problem Qualifiers (1) CAD (coronary artery disease): Qualified Code: I25.110 - Coronary artery disease involving [place] coronary artery of [place] heart with unstable angina pectoris Rubin Child DO Dec 27, 2016 11:59
--- NOTE | 2016-12-27 13:22 | PD.OP ---
cc: Raquel Abarca MD; Rubin Child DO Operative Report Date of Surgery: Dec 25, 2016 Preoperative Diagnosis: (1) [place], acute, non ST segment elevation (2) CAD (coronary artery disease) (3) Multi-vessel coronary artery stenosis Postoperative Diagnosis: same Procedure: CABG x 3 VERDUZCO to LAD - good, [id number] SVG tto OM - good SVG to PDA - fair EVH Anesthesia: Dr. Guthrie Surgeon: Raquel Abarca Import Manager(s): Frank Sow Operation and Findings: The risks, benefits, complications, treatment options, and expected outcomes were discussed with the patient. The possibilities of reaction to medication, pulmonary aspiration, perforation of viscus, bleeding, recurrent infection, the need for additional procedures, failure to diagnose a condition, and creating a complication requiring transfusion or operation were discussed with the patient. The patient concurred with the proposed plan, giving informed consent. The site of surgery properly noted/marked. The patient was taken to Operating Room, identified as Sybil White and the procedure verified as CABG, EVH. A Time Out was held and the above information confirmed. Standard monitoring lines and Sullivan catheter were placed. General anesthesia was induced. The patient was prepped and draped in a sterile fashion. A median sternotomy was performed and electrocautery was used to obtain hemostasis. The left internal mammary artery was procured as a pedicle from the 7th rib to the 1st rib in the usual manner. Simultaneously left greater saphenous vein was procured from the left leg using a minimally invasive endoscopic technique. The vein was prepared for anastomosis and the leg wound was irrigated and closed in 2 layers. The pericardium was opened and a pericardial sling was created using interrupted 0 silk sutures. The patient was heparinized for cardiopulmonary bypass and the distal mammary pedicle was instrumented for anastomosis. The heart was instrumented for cardiopulmonary bypass in the usual manner. Antegrade blood cardioplegia was employed. The patient was placed on cardiopulmonary bypass. An aortic cross-clamp was applied and the heart was arrested using cold blood cardioplegia. Antegrade cardioplegia was administered after he each anastomosis. After adequate arrest, the distal right coronary circulation was investigated and the PDA was opened with a [place] blade and found to be a 1 millimeter fair target. Saphenous vein was approximated to the PDA artery using a running 7 0 Prolene suture. The graft was measured for length and orientation and the proximal anastomosis was constructed to the ascending aorta using a running 5 0 Prolene suture after creating an aortotomy with a 5 millimeter punch. The 1st circumflex marginal artery was then opened with a [place] blade and found to be a 1.5 millimeter good target. Saphenous vein was approximated to the OM1 artery using a running 7 0 Prolene suture. The graft was measured for length and orientation and was suspended from the pericardium. The distal LAD was opened with a [place] blade and found to be a 1.5 millimeter good target. The LAD artery was intramyocardial. The left internal mammary artery was approximated to the LAD using a running 7 0 Prolene suture. The pedicle was attached to the epicardium using interrupted 5 0 silk suture. The patient was systemically rewarmed and received a hotshot dose of warm blood cardioplegia. The aorta was vented and the proximal anastomosis to the OM1 graft was accomplished using a running 5 0 Prolene suture after creating an aortotomy was a 5 millimeter punch. The cross-clamp was removed and all proximal and distal anastomoses were examined for hemostasis. The patient was weaned from cardiopulmonary bypass. Protamine was given. There was no adverse reaction. Decannulation was carried out without incident. Wound was checked for hemostasis which was obtained using electrocautery. A 36 [place] mediastinal and 32 [place] left pleural chest was were placed and secured to the skin with 0 silk suture. The sternum was closed with stainless steel wire. The fascia was closed with 1. PDS. The subcutaneous tissue was closed using a running 2-0 Vicryl suture. The skin was closed with 4-0 Monocryl. Sterile dressings were placed. At the end of the operation, all sponge, instruments, and needle counts were correct. The patient was transferred to the CVICU in stable condition. Findings: Good LV function, Drains: mediastinal x 1 pleural x 1 Complications: none Disposition: to CVICU in stable condition Raquel Abarca MD Dec 27, 2016 13:22
--- NOTE | 2016-12-27 13:26 | HHI.PR ---
Subjective Remarks No complaints. Feeling tired. Objective Vitals Vital Signs Date Time Temp Pulse Resp B/P Pulse Ox O2 Delivery O2 Flow Rate FiO2 12/27/16 12:06 97 Nasal Cannula 3.00 12/27/16 11:30 97.6 81 19 95/62 97 12/27/16 10:22 93 3.00 12/27/16 10:00 98 12/27/16 09:00 104 12/27/16 08:00 102 12/27/16 07:54 96 Nasal Cannula 3.00 12/27/16 07:30 98.0 103 18 126/64 93 12/27/16 07:00 103 12/27/16 06:00 98 12/27/16 05:00 97.9 105 18 112/55 95 12/27/16 05:00 98 12/27/16 04:42 96 Nasal Cannula 2.00 12/27/16 04:00 110 12/27/16 02:56 107 12/27/16 02:00 112 12/27/16 01:00 112 12/27/16 00:00 114 12/26/16 23:48 96 Nasal Cannula 2.00 12/26/16 23:48 97.9 112 18 134/76 95 12/26/16 23:00 135 12/26/16 22:11 18 12/26/16 22:00 128 12/26/16 21:00 90 12/26/16 20:33 94 Nasal Cannula 6.00 12/26/16 20:00 96 Nasal Cannula 2.00 12/26/16 20:00 97.9 86 18 151/70 96 12/26/16 20:00 88 12/26/16 19:00 85 12/26/16 18:00 88 12/26/16 17:00 90 12/26/16 16:00 96 12/26/16 15:45 102 12/26/16 15:30 97.8 103 18 157/88 93 12/26/16 15:00 92 Nasal Cannula 6.00 12/26/16 15:00 88 I/O 12/26/16 12/26/16 12/26/16 12/27/16 12/27/16 12/27/16 07:00 15:00 23:00 07:00 15:00 23:00 Intake Total 1286 ml 1400 ml Output Total 1030 ml 1040 ml 500 ml Balance 256 ml 360 ml -500 ml Intake Oral 120 ml 600 ml IV Total 1166 ml 800 ml Output Urine Total 650 ml 690 ml 400 ml Chest Tube Drainage Total 380 ml 350 ml 100 ml # Bowel Movements 0 0 Result Diagram: 12/27/16 0520 12/27/16 0520 Other Results Item Value Date Time Bedside Blood Glucose 124 mg/dl 12/26/16 1000 Bedside Blood Glucose 147 mg/dl 12/27/16 1100 Bedside Blood Glucose 120 mg/dl 12/27/16 0534 Bedside Blood Glucose 148 mg/dl 12/27/16 0139 Objective Remarks GENERAL: This is a well-nourished, well-developed patient, in no apparent distress. CARDIOVASCULAR: Irregular rate and rhythm Chest wall - drains in places RESPIRATORY: Clear to auscultation. Breath sounds equal bilaterally. No wheezes , rales, or rhonchi. GASTROINTESTINAL: Abdomen soft, non-tender, nondistended. Normal active bowel sounds MUSCULOSKELETAL: Extremities without clubbing, cyanosis, trace edema with bilateral SCDs NEURO: Alert & Oriented x4 to person, place, time, situation. Moves all ext x4 A/P Assessment and Plan Non-STEMI with elevated troponin status post heart catheter on 12/23 with multiple vessels coronary artery diseasestatus post operative day #2 CABG 3 continue aspirin, beta anton, , and statin, Continue postoperative care, pain control, rehabilitation per cardiothoracic surgery. Cardiology currently also following History of HTN, presenting hypertensive urgency now resolvedblood pressure currently controlled on beta anton, overnight had some hypotension will discontinue clonidine. Atrial fibrillationcurrently rate controlled, continue with beta anton and amiodarone. Cardiology is recommending Eliyann was when okay with cardiothoracic surgeon. History of hyperlipidemiacontinue statin Diabetes mellitus, type II diet controlledcontinue Accu-Cheks with sliding scale insulin DVT prophylaxisheparin/SCDs Discharge Planning Inpatient rehabilitation versus SNF when stable for disposition Cynthia Farah MD Dec 27, 2016 13:26
[2016-12-27 13:42] LABS: HEMATOCRIT 23.3 % (35.0-46.0); REVIEW FLAG FINAL
--- NOTE | 2016-12-27 13:50 | PD.CAR.PN ---
CVT Progress Note CVT: POD #: 2 Subjective/Hospital Course: 71/ female presented with SOB and chest tightness, after hearing news of her Godmother passing away. Her trop was 0.23/ + NSTEMI underwent heart cath multivessel disease LAD 70%, Circ 70%, RCA 50% proximal and mid distal 90% CT chest plaquing and calcification of aortic annulus , EF 60% PMH: DM, HTN 12/24 no c/o of chest pain scheduled for surgery in am CABG x 4 dc lovenox after this pm dose 12/25 surgery: CABG x 3 right EVH extubated after surgery 12/26 up in chair, on nasal cannula gentle diuresis on BB , statin ASA NSR leave chest tube in 380cc/ 12 hrs HGB 7.7/ transfuse one unit PRBC diuresis after blood infused 12/27 went into afib last pm given additional bolus amiodarone on po dose 400mg bid discussed with julia Alonso to start eliquis tonight or in am / hold clonidine 2/ labile BP Willian v score of 5.2 dc narcotics, ultram for pain gentle diuresis Objective: GENERAL: SKIN: Warm and dry. prevena to chest / incision intact to right leg HEAD: Normocephalic. EYES: No scleral icterus. No injection or drainage. NECK: Supple, trachea midline. No JVD or lymphadenopathy. CARDIOVASCULAR: irregular rate and rhythm without murmurs, gallops, or rubs. RESPIRATORY: diminished in bases Breath sounds equal bilaterally. No accessory muscle use. chest tubes removed without difficulty GASTROINTESTINAL: Abdomen soft, non-tender, nondistended. MUSCULOSKELETAL: No cyanosis, or edema. BACK: Nontender without obvious deformity. No CVA tenderness. Vital Signs Date Time Temp Pulse Resp B/P Pulse Ox O2 Delivery O2 Flow Rate FiO2 12/27/16 12:06 97 Nasal Cannula 3.00 12/27/16 11:30 97.6 81 19 95/62 97 12/27/16 10:22 93 3.00 12/27/16 10:00 98 12/27/16 09:00 104 12/27/16 08:00 102 12/27/16 07:54 96 Nasal Cannula 3.00 12/27/16 07:30 98.0 103 18 126/64 93 12/27/16 07:00 103 12/27/16 06:00 98 4/7/17 05:00 97.9 105 18 112/55 95 12/27/16 05:00 98 12/27/16 04:42 96 Nasal Cannula 2.00 12/27/16 04:00 110 12/27/16 02:56 107 12/27/16 02:00 112 12/27/16 01:00 112 12/27/16 00:00 114 12/26/16 23:48 96 Nasal Cannula 2.00 12/26/16 23:48 97.9 112 18 134/76 95 12/26/16 23:00 135 12/26/16 22:11 18 12/26/16 22:00 128 12/26/16 21:00 90 12/26/16 20:33 94 Nasal Cannula 6.00 12/26/16 20:00 96 Nasal Cannula 2.00 12/26/16 20:00 97.9 86 18 151/70 96 12/26/16 20:00 88 12/26/16 19:00 85 12/26/16 18:00 88 12/26/16 17:00 90 12/26/16 16:00 96 12/26/16 15:45 102 12/26/16 15:30 97.8 103 18 157/88 93 12/26/16 15:00 92 Nasal Cannula 6.00 12/26/16 15:00 88 Labs: Laboratory Tests Test 12/27/16 05:20 White Blood Count 18.2 TH/MM3 (4.0-11.0) Red Blood Count 2.70 MIL/MM3 (4.00-5.30) Hemoglobin 8.0 GM/DL (11.6-15.3) Hematocrit 23.8 % (35.0-46.0) Mean Corpuscular Volume 88.2 FL (80.0-100.0) Mean Corpuscular Hemoglobin 29.7 PG (27.0-34.0) Mean Corpuscular Hemoglobin 33.7 % Concent (32.0-36.0) Red Cell Distribution Width 15.4 % (11.6-17.2) Platelet Count 166 TH/MM3 (150-450) Mean Platelet Volume 8.0 FL (7.0-11.0) Neutrophils (%) (Auto) 78.3 % (16.0-70.0) Lymphocytes (%) (Auto) 11.0 % (9.0-44.0) Monocytes (%) (Auto) 10.7 % (0.0-8.0) Eosinophils (%) (Auto) 0.0 % (0.0-4.0) Basophils (%) (Auto) 0.0 % (0.0-2.0) Neutrophils # (Auto) 14.2 TH/MM3 (1.8-7.7) Lymphocytes # (Auto) 2.0 TH/MM3 (1.0-4.8) Monocytes # (Auto) 1.9 TH/MM3 (0-0.9) Eosinophils # (Auto) 0.0 TH/MM3 (0-0.4) Basophils # (Auto) 0.0 TH/MM3 (0-0.2) CBC Comment DIFF FINAL Differential Comment Sodium Level 140 MEQ/L (136-145) Potassium Level 4.6 MEQ/L (3.5-5.1) Chloride Level 107 MEQ/L (98-107) Carbon Dioxide Level 27.1 MEQ/L (21.0-32.0) Anion Gap 6 MEQ/L (5-15) Blood Urea Nitrogen 22 MG/DL (7-18) Creatinine 0.85 MG/DL (0.50-1.00) Estimat Glomerular Filtration 66 ML/MIN (>89) Rate Random Glucose 128 MG/DL (74-106) Calcium Level 7.7 MG/DL (8.5-10.1) Magnesium Level 2.6 MG/DL (1.5-2.5) Result Diagram: 12/27/1651912/27/16519 Telemetry: NSR> AFIB (1) [place], acute, non ST segment elevation (2) CAD (coronary artery disease) (3) S/P CABG x 3 Plan: ASA, statin , BB , pulm toileting , nebs ezpap , acapella OOB ambulate chest tubes removed (4) DM (diabetes mellitus) Plan: diabetic diet, insulin SS, (5) Blood loss anemia Plan: s/p one unit PRBC infusion repeat HGB 7.9 start ferrous sulfate, check stool for quiac (6) Postoperative atrial fibrillation Plan: on po amiodarone discussed with Dr Child , willian v score 5.2 start eliquis when possible Problem Qualifiers (1) CAD (coronary artery disease): Qualified Code: I25.110 - Coronary artery disease involving [place] coronary artery of [place] heart with unstable angina pectoris Oanh Gary Dec 27, 2016 13:50
[2016-12-27] MEDS: FERROUS SULFATE 325 MG (65 MG ELEMENTAL IRON) TAB PO SCH (16:10)
[2016-12-27] MEDS: SENNOSIDES 8.6 MG TAB PO SCH (21:23)
[2016-12-27] MEDS: ATORVASTATIN 40 MG TAB PO SCH (21:24)
[2016-12-28] VITALS (27 sets, daily range): BP systolic 121–145; BP diastolic 63–75; PULSE 61–92; RESP 16–18; TEMP 97.9–98.7; O2SAT 92–97
[2016-12-28] MEDS: traMADol HCL 50 MG TAB PO PRN ×3 (01:50→21:29)
--- NOTE | 2016-12-28 05:10 | RADRPT ---
EXAM DATE/TIME: 12/28/2016 04:41 [facility] COMPARISON: CHEST SINGLE AP, December 26, 2016, 4:17. INDICATIONS : Shortness of breath, possible pulmonary disease. MEDICAL HISTORY : Hypertension. Cardiovascular disease. SURGICAL HISTORY : CABG. ENCOUNTER: Subsequent ACUITY: 4 - 6 days PAIN SCORE: 2/10 LOCATION: Bilateral chest FINDINGS: The patient is status post sternotomy. The heart size is upper limits of normal for size. The previou sly seen left chest tube has been removed. No pneumothorax is seen. There is increased density at the bases bilaterally being worse on the left. There is silhouetting of the hemidiaphragms bilaterally. CONCLUSION: Bibasilar areas of consolidation or atelectasis with suspected bilateral mild effusions being worse o n the left. Olegario Ceballos MD on December 28, 2016 at 5:07 Board Certified Radiologist. This report was verified electronically.
[2016-12-28 06:45] LABS: AUTOMATED NEUTROPHIL # 12.6 TH/MM3 (1.8-7.7); BASOPHIL % 0.1 % (0.0-2.0); EOSINOPHIL % 0.2 % (0.0-4.0); HEMO FLAGS DIFF FINAL; LYMPH % 11.6 % (9.0-44.0); LYMPHOCYTE # 1.9 TH/MM3 (1.0-4.8); MEAN CELL VOLUME 89.4 FL (80.0-100.0); MEAN CORPUSCULAR HEMOGLOBIN 29.2 PG (27.0-34.0); MEAN CORPUSCULAR HGB CONC 32.6 % (32.0-36.0); MONO % 10.4 % (0.0-8.0); NEUT % 77.7 % (16.0-70.0); PLATELET COUNT 142 TH/MM3 (150-450); RED BLOOD COUNT 2.46 MIL/MM3 (4.00-5.30); RED CELL DISTRIBUTION WIDTH 14.6 % (11.6-17.2); WHITE BLOOD COUNT 16.3 TH/MM3 (4.0-11.0)
[2016-12-28] MEDS: INSULIN ASPART SUPPLEMENTAL SCALE SQ SCH ×4 (07:00→21:00)
[2016-12-28 07:11] LABS: BICARBONATE 30.6 MEQ/L (21.0-32.0)
[2016-12-28] MEDS: PANTOPRAZOLE SOD 40 MG DELAYED RELEASE TAB PO SCH (07:27)
[2016-12-28] MEDS: AMIODARONE 200 MG TAB PO SCH ×4 (07:27→22:38)
[2016-12-28] MEDS: RESP: ALBUTEROL 2.5 MG/IPRATROPIUM 0.5 MG NEB (SCH) NEB ×2 (07:50→13:05)
[2016-12-28] MEDS: MULTIVITAMINS/MINERALS THERAPEUTIC TAB PO SCH (08:01)
[2016-12-28] MEDS: METOPROLOL TARTRATE 25 MG TAB PO SCH ×2 (08:01→21:29)
[2016-12-28] MEDS: MAGNESIUM HYDROXIDE SUSP 30 ML CUP PO SCH (08:01)
[2016-12-28] MEDS: DOCUSATE SODIUM 100 MG CAP PO SCH ×2 (08:01→21:29)
[2016-12-28] MEDS: ASPIRIN 81 MG CHEW TAB PO SCH (08:01)
[2016-12-28] MEDS: POLYETHYLENE GLYCOL 17 GM PKG PO SCH (08:01)
[2016-12-28] MEDS: PARoxetine HCL 20 MG TAB PO SCH (08:01)
[2016-12-28] MEDS: MUPIROCIN 2% OINT 1 APPLIC/GM SYR EACH NARE SCH (08:01)
[2016-12-28] MEDS: SODIUM CHLORIDE 0.9% FLUSH 10 ML FLUSH IV FLUSH SCH ×2 (08:03→21:30)
--- NOTE | 2016-12-28 10:34 | PD.CAR.PN ---
CVT Progress Note CVT: POD #: 3 Subjective/Hospital Course: 71/ female presented with SOB and chest tightness, after hearing news of her Godmother passing away. Her trop was 0.23/ + NSTEMI underwent heart cath multivessel disease LAD 70%, Circ 70%, RCA 50% proximal and mid distal 90% CT chest plaquing and calcification of aortic annulus , EF 60% PMH: DM, HTN 12/24 no c/o of chest pain scheduled for surgery in am CABG x 4 dc lovenox after this pm dose 12/25 surgery: CABG x 3 right EVH extubated after surgery 12/26 up in chair, on nasal cannula gentle diuresis on BB , statin ASA NSR leave chest tube in 380cc/ 12 hrs HGB 7.7/ transfuse one unit PRBC diuresis after blood infused 12/27 went into afib last pm given additional bolus amiodarone on po dose 400mg bid discussed with Dr Lux, ok to start eliquis tonight or in am / hold clonidine / labile BP Fabi v score of 5.2 dc narcotics, ultram for pain gentle diuresis 12/28/16 Weak, dizzy. No BM Objective: Vital Signs Date Time Temp Pulse Resp B/P Pulse Ox O2 Delivery O2 Flow Rate FiO2 12/28/16 10:00 64 12/28/16 09:13 64 12/28/16 08:30 70 12/28/16 08:30 97.9 72 18 143/75 95 Arterial Line 12/28/16 08:30 95 Nasal Cannula 2.00 12/28/16 07:53 92 Nasal Cannula 3.00 12/28/16 06:00 74 12/28/16 05:00 70 12/28/16 04:00 70 12/28/16 03:40 92 Nasal Cannula 3.00 12/28/16 03:00 98.1 70 16 133/66 92 12/28/16 03:00 74 12/28/16 02:00 92 12/28/16 01:00 72 12/28/16 00:00 70 12/27/16 23:05 92 Nasal Cannula 3.00 12/27/16 23:03 97.8 74 16 124/62 92 12/27/16 23:00 7 12/27/16 22:00 70 12/27/16 21:00 72 12/27/16 20:00 72 12/27/16 20:00 97.8 73 16 122/62 95 12/27/16 19:25 97 Nasal Cannula 3.00 12/27/16 19:00 72 12/27/16 18:01 78 12/27/16 17:55 74 12/27/16 17:30 75 12/27/16 16:00 89 12/27/16 15:00 97.7 90 20 111/60 97 12/27/16 15:00 89 12/27/16 15:00 97 Nasal Cannula 3.00 12/27/16 14:00 90 12/27/16 13:00 92 12/27/16 12:06 97 Nasal Cannula 3.00 12/27/16 12:00 82 12/27/16 11:30 97.6 81 19 95/62 97 12/27/16 11:00 83 Labs: Laboratory Tests Test 12/28/16 06:30 White Blood Count 16.3 TH/MM3 (4.0-11.0) Red Blood Count 2.46 MIL/MM3 (4.00-5.30) Hemoglobin 7.2 GM/DL (11.6-15.3) Hematocrit 22.0 % (35.0-46.0) Mean Corpuscular Volume 89.4 FL (80.0-100.0) Mean Corpuscular Hemoglobin 29.2 PG (27.0-34.0) Mean Corpuscular Hemoglobin 32.6 % Concent (32.0-36.0) Red Cell Distribution Width 14.6 % (11.6-17.2) Platelet Count 142 TH/MM3 (150-450) Mean Platelet Volume 7.8 FL (7.0-11.0) Neutrophils (%) (Auto) 77.7 % (16.0-70.0) Lymphocytes (%) (Auto) 11.6 % (9.0-44.0) Monocytes (%) (Auto) 10.4 % (0.0-8.0) Eosinophils (%) (Auto) 0.2 % (0.0-4.0) Basophils (%) (Auto) 0.1 % (0.0-2.0) Neutrophils # (Auto) 12.6 TH/MM3 (1.8-7.7) Lymphocytes # (Auto) 1.9 TH/MM3 (1.0-4.8) Monocytes # (Auto) 1.7 TH/MM3 (0-0.9) Eosinophils # (Auto) 0.0 TH/MM3 (0-0.4) Basophils # (Auto) 0.0 TH/MM3 (0-0.2) CBC Comment DIFF FINAL Differential Comment Sodium Level 137 MEQ/L (136-145) Potassium Level 5.0 MEQ/L (3.5-5.1) Chloride Level 102 MEQ/L (98-107) Carbon Dioxide Level 30.6 MEQ/L (21.0-32.0) Anion Gap 4 MEQ/L (5-15) Blood Urea Nitrogen 24 MG/DL (7-18) Creatinine 0.67 MG/DL (0.50-1.00) Estimat Glomerular Filtration 87 ML/MIN (>89) Rate Random Glucose 115 MG/DL (74-106) Calcium Level 7.8 MG/DL (8.5-10.1) Result Diagram: 12/28/16 0630 12/28/16 0630 Imaging: Last Impressions Chest X-Ray 12/28/16 0600 Signed Impressions: Service Date/Time: Wednesday, December 28, 2016 04:41 - CONCLUSION: Bibasilar areas of consolidation or atelectasis with suspected bilateral mild effusions being worse on the left. Olegario Ceballos MD Lower Extremity Ultrasound 12/23/16 0000 Signed Impressions: Service Date/Time: Friday, December 23, 2016 15:18 - CONCLUSION: 1. Vein mapping as above. Braeden Morel MD Chest CT 12/23/16 0000 Signed Impressions: Service Date/Time: Friday, December 23, 2016 16:33 - CONCLUSION: 1. Advanced atherosclerotic plaquing and calcification of the aortic annulus. 2. The lungs are clear. 3. Degenerative changes in the spine. Braeden Morel MD Carotid Artery Ultrasound 12/23/16 0000 Signed Impressions: Service Date/Time: Friday, December 23, 2016 14:53 - CONCLUSION: 1. No hemodynamically significant carotid artery stenosis identified. 2. There is minimal atherosclerotic plaquing at the bifurcations. Braeden Morel MD Cardiovascular: RRR Telemetry: NSR Pulmonary: Decreased BS, bilat GI/: NABS, NT Incision: dry and intact Plan: Transfuse 2 units pRBC Diurese Supp K Encourage ambulation D/C rehab tomorrow Continue clonidine (1) AR, acute, non ST segment elevation (2) CAD (coronary artery disease) (3) S/P CABG x 3 Plan: ASA, statin , BB , pulm toileting , nebs ezpap , acapella OOB ambulate chest tubes removed (4) DM (diabetes mellitus) Plan: diabetic diet, insulin SS, (5) Blood loss anemia Plan: s/p one unit PRBC infusion repeat HGB 7.9 start ferrous sulfate, check stool for quiac (6) Postoperative atrial fibrillation Plan: on po amiodarone discussed with Dr Child , fabi v score 5.2 start eliquis when possible Problem Qualifiers (1) CAD (coronary artery disease): Qualified Code: I25.110 - Coronary artery disease involving [place] coronary artery of [place] heart with unstable angina pectoris Raquel Abarca MD Dec 28, 2016 10:33
[2016-12-28] MEDS ORDERED: SODIUM CHLOR 0.9% 250 ML INJ 250 ML IV ONE (11:00)
[2016-12-28] MEDS: FERROUS SULFATE 325 MG (65 MG ELEMENTAL IRON) TAB PO SCH ×2 (11:06→17:26)
[2016-12-28] MEDS: cloNIDine HCL 0.2 MG TAB PO SCH ×2 (11:06→21:30)
--- NOTE | 2016-12-28 12:58 | HHI.PR ---
Subjective Remarks Patient doing okay this morning, states that she does feel weak. Patient currently receiving transfusion PRBC. No headache, dizziness, shortness of breath, itching. Chest tube removed yesterday. Objective Vitals Vital Signs Date Time Temp Pulse Resp B/P Pulse Ox O2 Delivery O2 Flow Rate FiO2 12/28/16 12:00 64 12/28/16 11:40 98.1 64 18 121/65 97 12/28/16 11:27 98.1 65 18 121/63 96 12/28/16 11:27 96 Nasal Cannula 2.00 12/28/16 11:27 73 12/28/16 10:00 64 12/28/16 09:13 64 12/28/16 08:30 70 12/28/16 08:30 97.9 72 18 143/75 95 Arterial Line 12/28/16 08:30 95 Nasal Cannula 2.00 12/28/16 07:53 92 Nasal Cannula 3.00 12/28/16 06:00 74 12/28/16 05:00 70 12/28/16 04:00 70 12/28/16 03:40 92 Nasal Cannula 3.00 12/28/16 03:00 98.1 70 16 133/66 92 12/28/16 03:00 74 12/28/16 02:00 92 12/28/16 01:00 72 12/28/16 00:00 70 12/27/16 23:05 92 Nasal Cannula 3.00 12/27/16 23:03 97.8 74 16 124/62 92 12/27/16 23:00 7 12/27/16 22:00 70 12/27/16 21:00 72 12/27/16 20:00 72 12/27/16 20:00 97.8 73 16 122/62 95 12/27/16 19:25 97 Nasal Cannula 3.00 12/27/16 19:00 72 12/27/16 18:01 78 12/27/16 17:55 74 12/27/16 17:30 75 12/27/16 16:00 89 12/27/16 15:00 97.7 90 20 111/60 97 12/27/16 15:00 89 12/27/16 15:00 97 Nasal Cannula 3.00 12/27/16 14:00 90 12/27/16 13:00 92 I/O 12/27/16 12/27/16 12/27/16 12/28/16 12/28/16 12/28/16 07:00 15:00 23:00 07:00 15:00 23:00 Intake Total 920 ml 800 ml Output Total 500 ml 400 ml 890 ml Balance -500 ml 520 ml -90 ml Intake Oral 920 ml 800 ml Output Urine Total 400 ml 400 ml 890 ml Chest Tube Drainage Total 100 ml # Bowel Movements 0 0 Result Diagram: 12/28/1662912/28/16629 Objective Remarks GENERAL: This is a well-nourished, well-developed patient, in no apparent distress. CARDIOVASCULAR: Irregular rate and rhythm. RESPIRATORY: Clear to auscultation. Breath sounds equal bilaterally. No wheezes , rales, or rhonchi. GASTROINTESTINAL: Abdomen soft, non-tender, nondistended. Normal active bowel sounds MUSCULOSKELETAL: Extremities without clubbing, cyanosis, trace edema with bilateral SCDs NEURO: Alert & Oriented x4 to person, place, time, situation. Moves all ext x4 Urinary Catheter: No Vascular Central Line Catheter: No A/P Problem List: (1) S/P CABG x 3 ICD Code: Z95.1 Status: Acute (2) Blood loss anemia ICD Code: D50.0 Status: Acute (3) DM (diabetes mellitus) ICD Code: E11.9 Status: Acute (4) Atrial fibrillation ICD Code: I48.91 Status: Acute Assessment and Plan Patient is a 71-year-old female, coming to the hospital found to have NSTEMI, now status post CABG 3 being followed by cardiovascular surgery. Non-STEMI. Postop day 3 status post CABG 3 continue aspirin, beta anton, and statin. -Continue postoperative care, pain control, rehabilitation per cardiothoracic surgery. -Acapella and incentive spirometry -Tramadol prn pain -Plan for discharge to rehabilitation tomorrow HTN. Patient initially presenting hypertensive urgency now resolved. -Clonidine restarted at clonidine 0.2 mg by mouth every 12 hours. -Closely monitor blood pressure Atrial fibrillationcurrently rate controlled -continue with beta anton and amiodarone. -Cardiology is recommending Eliquis given patient has CHADSVASc 5, will defer to cardiothoracic surgeon. Anemia -Transfuse PRBCs 2 units -Hemoccult -Iron sulfate supplementation Diabetes mellitus, type II diet controlled continue Accu-Cheks with sliding scale insulin DVT prophylaxisheparin/SCDs Dietregular GI- Protonix, Colace, Senna, Milk of Mag; Miralax prn Discharge Planning dc to rehab tomorrow Sonam Oh MD Dec 28, 2016 12:58
[2016-12-28] MEDS ORDERED: BISACODYL 10 MG SUPP RECTAL PRN (13:30)
[2016-12-28] MEDS ORDERED: SOD PHOSPHATE/SOD BIPHOSPHATE (ADULT) ENEMA 133ML RECTAL PRN (14:00)
[2016-12-28] MEDS: FUROSEMIDE 20 MG/2 ML VIAL IV SCH ×2 (14:20→17:27)
[2016-12-28] MEDS: ATORVASTATIN 40 MG TAB PO SCH (21:28)
[2016-12-28] MEDS: SENNOSIDES 8.6 MG TAB PO SCH (21:29)
[2016-12-29] VITALS (27 sets, daily range): BP systolic 117–146; BP diastolic 51–85; PULSE 61–82; RESP 16–18; TEMP 97.6–98.8; O2SAT 91–95
[2016-12-29 00:29] LABS: REVIEW FLAG FINAL
[2016-12-29] MEDS: PANTOPRAZOLE SOD 40 MG DELAYED RELEASE TAB PO SCH (05:15)
[2016-12-29] MEDS: AMIODARONE 200 MG TAB PO SCH ×2 (05:15→20:59)
[2016-12-29] MEDS: traMADol HCL 50 MG TAB PO PRN ×2 (05:54→21:00)
[2016-12-29 06:02] LABS: HEMATOCRIT 24.1 % (35.0-46.0); REVIEW FLAG FINAL
[2016-12-29] MEDS: INSULIN ASPART SUPPLEMENTAL SCALE SQ SCH ×4 (07:00→21:00)
[2016-12-29] MEDS: MULTIVITAMINS/MINERALS THERAPEUTIC TAB PO SCH (09:30)
[2016-12-29] MEDS: DOCUSATE SODIUM 100 MG CAP PO SCH ×2 (09:30→21:00)
[2016-12-29] MEDS: ASPIRIN 81 MG CHEW TAB PO SCH (09:30)
[2016-12-29] MEDS: PARoxetine HCL 20 MG TAB PO SCH (09:31)
[2016-12-29] MEDS: METOPROLOL TARTRATE 25 MG TAB PO SCH ×2 (09:31→21:04)
[2016-12-29] MEDS: ACETAMINOPHEN 325 MG TAB PO PRN (09:32)
[2016-12-29] MEDS: cloNIDine HCL 0.2 MG TAB PO SCH ×2 (09:32→21:04)
[2016-12-29] MEDS: POLYETHYLENE GLYCOL 17 GM PKG PO SCH (09:32)
[2016-12-29] MEDS: MAGNESIUM HYDROXIDE SUSP 30 ML CUP PO SCH (09:36)
[2016-12-29] MEDS: SODIUM CHLORIDE 0.9% FLUSH 10 ML FLUSH IV FLUSH SCH ×2 (10:00→21:04)
--- NOTE | 2016-12-29 11:09 | HHI.PR ---
Subjective Remarks No acute events overnight. Afebrile, vital signs stable. Patient status post 1 unit packed red blood cells yesterday. States she still feels weak and dizzy. Objective Vitals Vital Signs Date Time Temp Pulse Resp B/P Pulse Ox O2 Delivery O2 Flow Rate FiO2 12/29/16 07:45 78 12/29/16 07:45 94 Nasal Cannula 1.50 12/29/16 07:45 97.7 79 18 146/80 94 12/29/16 06:16 98.6 67 16 123/51 94 12/29/16 06:00 70 12/29/16 05:00 72 12/29/16 04:22 96 Nasal Cannula 2.00 12/29/16 04:00 64 12/29/16 03:00 72 12/29/16 02:00 64 12/29/16 01:00 64 12/29/16 00:40 98.7 82 16 132/69 93 12/29/16 00:29 93 Nasal Cannula 2.00 12/29/16 00:00 70 12/28/16 23:00 72 12/28/16 22:00 76 12/28/16 21:35 96 Nasal Cannula 2.00 12/28/16 21:26 98.7 85 16 145/67 92 12/28/16 21:00 80 12/28/16 20:00 78 12/28/16 19:54 93 Nasal Cannula 3.00 12/28/16 19:00 80 12/28/16 18:18 69 12/28/16 17:25 69 12/28/16 16:12 70 12/28/16 15:44 98.0 65 18 133/64 96 12/28/16 15:44 72 12/28/16 15:44 96 Nasal Cannula 2.00 12/28/16 14:11 61 12/28/16 13:02 61 12/28/16 12:52 18 12/28/16 12:00 64 12/28/16 11:40 98.1 64 18 121/65 97 12/28/16 11:27 98.1 65 18 121/63 96 12/28/16 11:27 96 Nasal Cannula 2.00 12/28/16 11:27 73 I/O 12/28/16 12/28/16 12/28/16 12/29/16 12/29/16 12/29/16 07:00 15:00 23:00 07:00 15:00 23:00 Intake Total 800 ml 1150 ml 360 ml Output Total 890 ml 2050 ml 1201 ml Balance -90 ml -900 ml -841 ml Intake Oral 800 ml 600 ml 360 ml IV Total 50 ml 0 ml Packed Cells 500 ml Output Urine Total 890 ml 2050 ml 1200 ml Stool Total 1 ml # Bowel Movements 0 0 Result Diagram: 12/29/16 0530 12/28/16 0630 Objective Remarks GENERAL: This is a well-nourished, well-developed patient, in no apparent distress. CARDIOVASCULAR: Irregular rate and rhythm. RESPIRATORY: Clear to auscultation. Breath sounds equal bilaterally. No wheezes , rales, or rhonchi. GASTROINTESTINAL: Abdomen soft, non-tender, nondistended. Normal active bowel sounds MUSCULOSKELETAL: Extremities without clubbing, cyanosis, trace edema with bilateral SCDs NEURO: Alert & Oriented x4 to person, place, time, situation. Moves all ext x4 A/P Problem List: (1) S/P CABG x 3 ICD Code: Z95.1 Status: Acute (2) Blood loss anemia ICD Code: D50.0 Status: Acute (3) DM (diabetes mellitus) ICD Code: E11.9 Status: Acute (4) Atrial fibrillation ICD Code: I48.91 Status: Acute Assessment and Plan Patient is a 71-year-old female, coming to the hospital found to have NSTEMI, now status post CABG 3 being followed by cardiovascular surgery. Non-STEMI. Postop day 4 status post CABG 3 continue aspirin, beta anton, and statin. -Continue postoperative care, pain control, rehabilitation per cardiothoracic surgery. -Acapella and incentive spirometry -Tramadol prn pain HTN. Patient initially presenting hypertensive urgency now resolved. -Clonidine restarted at clonidine 0.2 mg by mouth every 12 hours. -Closely monitor blood pressure Atrial fibrillationcurrently rate controlled -continue with beta anton and amiodarone. -Cardiology is recommending Eliquis given patient has CHADSVASc 5, will defer to cardiothoracic surgeon. Anemia -s/p 1 unit PRBCs with appropriate response; however patient's hemoglobin dropped again today to 8.4 from 9.7 -Hemoccult positive -Iron sulfate supplementation -GI consult for positive Hemoccult and persistent anemia -Transfuse PRN Diabetes mellitus, type II diet controlled continue Accu-Cheks with sliding scale insulin DVT prophylaxisheparin/SCDs Dietregular GI- Protonix, Colace, Senna, Milk of Mag; Miralax prn Discharge Planning Patient was supposed to be discharged to rehabilitation today, however given her persistent anemia and positive Hemoccult will wait for gastroenterology recommendations. Jennifer Pavon MD R3 Dec 29, 2016 11:09
[2016-12-29] MEDS: FERROUS SULFATE 325 MG (65 MG ELEMENTAL IRON) TAB PO SCH ×2 (11:42→17:25)
--- NOTE | 2016-12-29 12:48 | PD.CAR.PN ---
CVT Progress Note CVT: POD #: 4 Subjective/Hospital Course: 71/ female presented with SOB and chest tightness, after hearing news of her Godmother passing away. Her trop was 0.23/ + NSTEMI underwent heart cath multivessel disease LAD 70%, Circ 70%, RCA 50% proximal and mid distal 90% CT chest plaquing and calcification of aortic annulus , EF 60% PMH: DM, HTN 12/24 no c/o of chest pain scheduled for surgery in am CABG x 4 dc lovenox after this pm dose 12/25 surgery: CABG x 3 right EVH extubated after surgery 12/26 up in chair, on nasal cannula gentle diuresis on BB , statin ASA NSR leave chest tube in 380cc/ 12 hrs HGB 7.7/ transfuse one unit PRBC diuresis after blood infused 12/27 went into afib last pm given additional bolus amiodarone on po dose 400mg bid discussed with Dr Lux, ok to start eliquis tonight or in am / hold clonidine / labile BP Willian v score of 5.2 dc narcotics, ultram for pain gentle diuresis 12/28/16 Weak, dizzy. No BM 12/29/16 Improved ambulation s/p transfusion and diuresis. +BM Objective: Vital Signs Date Time Temp Pulse Resp B/P Pulse Ox O2 Delivery O2 Flow Rate FiO2 12/29/16 12:42 61 12/29/16 11:46 95 Nasal Cannula 2.00 12/29/16 11:46 97.6 67 18 117/70 95 12/29/16 11:00 66 12/29/16 10:00 70 12/29/16 09:00 68 12/29/16 08:00 72 12/29/16 07:45 78 12/29/16 07:45 94 Nasal Cannula 1.50 12/29/16 07:45 97.7 79 18 146/80 94 12/29/16 06:16 98.6 67 16 123/51 94 12/29/16 06:00 70 12/29/16 05:00 72 12/29/16 04:22 96 Nasal Cannula 2.00 12/29/16 04:00 64 12/29/16 03:00 72 12/29/16 02:00 64 12/29/16 01:00 64 12/29/16 00:40 98.7 82 16 132/69 93 12/29/16 00:29 93 Nasal Cannula 2.00 12/29/16 00:00 70 12/28/16 23:00 72 12/28/16 22:00 76 12/28/16 21:35 96 Nasal Cannula 2.00 12/28/16 21:26 98.7 85 16 145/67 92 12/28/16 21:00 80 12/28/16 20:00 78 12/28/16 19:54 93 Nasal Cannula 3.00 12/28/16 19:00 80 12/28/16 18:18 69 12/28/16 17:25 69 12/28/16 16:12 70 12/28/16 15:44 98.0 65 18 133/64 96 12/28/16 15:44 72 12/28/16 15:44 96 Nasal Cannula 2.00 12/28/16 14:11 61 12/28/16 13:02 61 12/28/16 12:52 18 Labs: Laboratory Tests Test 12/29/16 05:30 Hemoglobin 8.4 GM/DL (11.6-15.3) Hematocrit 24.1 % (35.0-46.0) Result Diagram: 12/29/16 0530 12/28/16 0630 Cardiovascular: RRR Telemetry: NSR Pulmonary: Decreased BS bilat GI/: NABS, NT Incision: dry and intact Plan: CXR in AM Wean O2 Encourage ambulation She had occult blood in stool - may be secondary to NG tube perioperatively, but will need to be evaluated. Still anemic s/p 2 units pRBC. CBC in AM (1) AL, acute, non ST segment elevation (2) CAD (coronary artery disease) (3) S/P CABG x 3 Plan: ASA, statin , BB , pulm toileting , nebs ezpap , acapella OOB ambulate chest tubes removed (4) DM (diabetes mellitus) Plan: diabetic diet, insulin SS, (5) Blood loss anemia Plan: s/p one unit PRBC infusion repeat HGB 7.9 start ferrous sulfate, check stool for quiac (6) Postoperative atrial fibrillation Plan: on po amiodarone discussed with Dr Child , willian v score 5.2 start eliquis when possible Problem Qualifiers (1) CAD (coronary artery disease): Qualified Code: I25.110 - Coronary artery disease involving [place] coronary artery of [place] heart with unstable angina pectoris Raquel Abarca MD Dec 29, 2016 12:48
--- NOTE | 2016-12-29 14:27 | MB ---
cc: GINA ROMERO M.D. DATE OF CONSULTATION: 12/29/2016 REASON FOR CONSULTATION: Anemia, heme-positive stool. REFERRING PHYSICIAN: Dr. De Jesus. HISTORY OF PRESENT ILLNESS: Thank you for the consultation. This is a pleasant 71-year-old lady who presented a few days ago to the emergency room in [place] with chest pain. The patient was found to have a myocardial infarction and she ended up with a three-vessel CABG three days ago. The patient has been doing okay. She is a little bit weak but overall was extubated rapidly and transferred to the step-down cardiac care unit. The patient has anemia and her stool exam showed heme-positive stool. The patient denies any gastrointestinal symptoms. Apparently she had an endoscopy and colonoscopy she thinks five to seven years ago. She is not sure of the results. She does not know where all these were done. The patient denies any other gastrointestinal symptoms. No nausea. No vomiting. No hematemesis. No black stool. No blood in the stool. PAST MEDICAL HISTORY: The past medical history is significant for: 1. Diabetes which is diet-controlled. 2. Hyperlipidemia. 3. Hypertension. FAMILY HISTORY: Family history significant for coronary artery disease and congestive heart failure. SOCIAL HISTORY: She smoked until six years ago. Denied drugs or alcohol. ALLERGIES: NO KNOWN DRUG ALLERGIES. REVIEW OF SYSTEMS: All twelve-point negative at this time. She complains of some chest discomfort from the wound. General fatigue. Otherwise negative. PHYSICAL EXAMINATION: GENERAL: Alert, oriented, in no acute distress. VITAL SIGNS: Vital signs are stable. HEAD, EYES, EARS, NOSE, THROAT: Pupils are round and reactive to light. NECK: The neck is supple. CHEST: A few rales bilaterally. She has a large mediastinal scar from her previous surgery. ABDOMEN: Abdomen soft. Normal bowel sounds. No hepatosplenomegaly. Mild obesity. NEUROLOGICAL: Neurologically intact. PSYCHIATRIC: Psychologically appropriate. LABS: White count 16.3, hemoglobin 7.2 yesterday, her baseline was like 12, she dropped significantly after surgery to 7.7 and then she received blood and her hemoglobin today is 8.4. She had stool which was heme-positive. INR was 1.0. BUN 24, creatinine 0.65. IMAGING STUDIES: Chest x-ray from yesterday: Bibasilar area of consolidation, mild effusion, worse on the left. ASSESSMENT AND PLAN: 71-year-old lady who has A history of recent NC less than a week ago with bypass to the vessels. The patient has anemia with heme-positive stool. No sign of active bleeding. The patient is high risk for any GI procedure. I talked to her about the procedure and complications and the risks. She said she does not feel like she is able to go through any procedure now, she would like to wait. Ideally we should wait four to six months if we can unless she has active bleeding that needs to be stopped we can manage her with proton pump inhibitor. We can give her packed red blood cells as needed. Will check stool periodically and hemoglobin periodically. If she starts having active bleeding, then we will need to do an endoscopy despite the risk, if she is agreeable to do that. Her son and her daughter were in the room when I saw the patient for this consultation and they are in agreement with the plan. Gina Romero MD /JCTammy /1:31 PM /2:18 PM
[2016-12-29] MEDS: SENNOSIDES 8.6 MG TAB PO SCH (21:00)
[2016-12-29] MEDS: ATORVASTATIN 40 MG TAB PO SCH (21:03)
[2016-12-29] MEDS ORDERED: diphenhydrAMINE HCL 25 MG CAP PO PRN (21:15)
[2016-12-30] VITALS (29 sets, daily range): BP systolic 86–141; BP diastolic 49–83; PULSE 60–91; RESP 16–20; TEMP 97.5–98.2; O2SAT 92–99
--- NOTE | 2016-12-30 05:56 | RADRPT ---
EXAM DATE/TIME: 12/30/2016 03:50 [facility] COMPARISON: CHEST SINGLE AP, December 28, 2016, 4:41. INDICATIONS : Shortness of breath, possible pulmonary disease MEDICAL HISTORY : Hypertension. Cardiovascular disease. SURGICAL HISTORY : CABG. ENCOUNTER: Subsequent ACUITY: 1 week PAIN SCORE: 2/10 LOCATION: Bilateral chest FINDINGS: A single view of the chest demonstrates cardiomegaly with previous CABG. Bibasilar densities and prob able small pleural effusions. Right jugular catheter has been removed. Osseous structures are intact. CONCLUSION: 1. Bibasilar consolidation and small bilateral pleural effusions. The density in the right lower lobe is slightly more prominent on current study. 2. Cardiomegaly and previous CABG. Dominick Urban MD on December 30, 2016 at 5:54 Board Certified Radiologist. This report was verified electronically.
[2016-12-30 06:18] LABS: AUTOMATED NEUTROPHIL # 8.5 TH/MM3 (1.8-7.7); BASOPHIL % 0.1 % (0.0-2.0); EOSINOPHIL # 0.2 TH/MM3 (0-0.4); EOSINOPHIL % 1.6 % (0.0-4.0); HEMATOCRIT 30.5 % (35.0-46.0); HEMO FLAGS DIFF FINAL; LYMPH % 16.9 % (9.0-44.0); MEAN CELL VOLUME 90.1 FL (80.0-100.0); MEAN CORPUSCULAR HEMOGLOBIN 29.8 PG (27.0-34.0); MEAN CORPUSCULAR HGB CONC 33.1 % (32.0-36.0); MONO % 11.2 % (0.0-8.0); NEUT % 70.2 % (16.0-70.0); PLATELET COUNT 180 TH/MM3 (150-450); RED BLOOD COUNT 3.38 MIL/MM3 (4.00-5.30); RED CELL DISTRIBUTION WIDTH 14.3 % (11.6-17.2); WHITE BLOOD COUNT 12.1 TH/MM3 (4.0-11.0)
[2016-12-30 06:37] LABS: BICARBONATE 32.6 MEQ/L (21.0-32.0); POTASSIUM 4.2 MEQ/L (3.5-5.1)
[2016-12-30] MEDS: INSULIN ASPART SUPPLEMENTAL SCALE SQ SCH ×4 (07:00→20:44)
--- NOTE | 2016-12-30 07:14 | HHI.PR ---
Subjective Remarks In bed. Denies having chest pain, says she coughs at times and has chest pain she is using the pillow for support. No fever or chills. Less sob. No cough. H/H improved and stable after transfusion. No signs of active bleeding. Objective Vitals Vital Signs Date Time Temp Pulse Resp B/P Pulse Ox O2 Delivery O2 Flow Rate FiO2 12/30/16 06:00 68 12/30/16 05:05 98.2 69 16 124/76 93 12/30/16 05:00 93 Nasal Cannula 1.00 12/30/16 05:00 64 12/30/16 04:00 66 12/30/16 03:00 70 12/30/16 02:00 66 12/30/16 01:50 98.1 81 16 120/63 92 12/30/16 01:00 70 12/30/16 00:00 64 12/29/16 23:23 94 Nasal Cannula 1.00 12/29/16 23:00 70 12/29/16 22:00 70 12/29/16 21:46 Nasal Cannula 3.00 12/29/16 21:19 98.8 77 16 146/85 91 12/29/16 21:18 94 Nasal Cannula 1.00 12/29/16 21:00 76 12/29/16 20:00 76 12/29/16 19:00 70 12/29/16 18:29 70 12/29/16 17:08 66 12/29/16 16:07 79 12/29/16 15:00 97.6 71 18 145/76 94 12/29/16 15:00 94 Nasal Cannula 1.00 12/29/16 15:00 68 12/29/16 13:26 66 12/29/16 12:42 61 12/29/16 11:46 95 Nasal Cannula 2.00 12/29/16 11:46 97.6 67 18 117/70 95 12/29/16 11:00 66 12/29/16 10:00 70 12/29/16 09:00 68 12/29/16 08:00 72 12/29/16 07:45 78 12/29/16 07:45 94 Nasal Cannula 1.50 12/29/16 07:45 97.7 79 18 146/80 94 I/O 4/9/17 4/9/12/29/16 12/30/16 12/30/16 12/30/16 07:00 15:00 23:00 07:00 15:00 23:00 Intake Total 360 ml 720 ml 240 ml Output Total 1201 ml 802 ml 350 ml Balance -841 ml -82 ml -110 ml Intake Oral 360 ml 720 ml 240 ml IV Total 0 ml Output Urine Total 1200 ml 800 ml 350 ml Stool Total 1 ml 2 ml # Bowel Movements 1 Result Diagram: 12/30/16 0548 12/30/16 0548 Imaging Last Impressions Chest X-Ray 12/30/16 0600 Signed Impressions: Service Date/Time: Friday, December 30, 2016 03:50 - CONCLUSION: 1. Bibasilar consolidation and small bilateral pleural effusions. The density in the right lower lobe is slightly more prominent on current study. 2. Cardiomegaly and previous CABG. Dominick Urban MD Lower Extremity Ultrasound 12/23/16 0000 Signed Impressions: Service Date/Time: Friday, December 23, 2016 15:18 - CONCLUSION: 1. Vein mapping as above. Braeden Morel MD Chest CT 12/23/16 0000 Signed Impressions: Service Date/Time: Friday, December 23, 2016 16:33 - CONCLUSION: 1. Advanced atherosclerotic plaquing and calcification of the aortic annulus. 2. The lungs are clear. 3. Degenerative changes in the spine. Braeden Morel MD Carotid Artery Ultrasound 12/23/16 0000 Signed Impressions: Service Date/Time: Friday, December 23, 2016 14:53 - CONCLUSION: 1. No hemodynamically significant carotid artery stenosis identified. 2. There is minimal atherosclerotic plaquing at the bifurcations. Braeden Morel MD Objective Remarks GENERAL: Pleasant 71 yo Female, well nourished, well developed patient, appears in NAD. SKIN: Warm and dry. HEAD: Atraumatic. Normocephalic. EYES: Pupils equal and round. No scleral icterus. No injection or drainage. ENT: No nasal bleeding or discharge. Mucous membranes pink and moist. NECK: Trachea midline. No JVD. CARDIOVASCULAR: Regular rate and rhythm. RESPIRATORY: No accessory muscle use. Clear to auscultation. Breath sounds equal bilaterally. GASTROINTESTINAL: Abdomen soft, non-tender, nondistended. Hepatic and splenic margins not palpable. MUSCULOSKELETAL: Extremities without clubbing, cyanosis, or edema. No obvious deformities. NEUROLOGICAL: Awake and alert. No obvious cranial nerve deficits. Motor grossly within normal limits. Five out of 5 muscle strength in the arms and legs. Normal speech. PSYCHIATRIC: Appropriate mood and affect; insight and judgment normal. A/P Problem List: (1) S/P CABG x 3 ICD Code: Z95.1 Status: Acute (2) Blood loss anemia ICD Code: D50.0 Status: Acute (3) DM (diabetes mellitus) ICD Code: E11.9 Status: Acute (4) Atrial fibrillation ICD Code: I48.91 Status: Acute Assessment and Plan Patient is a 71-year-old female, coming to the hospital found to have NSTEMI, now status post CABG 3 being followed by cardiovascular surgery. Non-STEMI. Postop day 4 status post CABG 3 continue aspirin, beta anton, and statin. -Continue postoperative care, pain control, rehabilitation per cardiothoracic surgery. -Acapella and incentive spirometry -Tramadol prn pain HTN. Patient initially presenting hypertensive urgency now resolved. -Clonidine restarted at clonidine 0.2 mg by mouth every 12 hours. -Closely monitor blood pressure Atrial fibrillationcurrently rate controlled -continue with beta anton and amiodarone. -Cardiology is recommending Eliquis given patient has CHADSVASc 5, will defer to cardiothoracic surgeon. Anemia -s/p 1 unit PRBCs with appropriate response; however patient's hemoglobin dropped again today to 8.4 from 9.7 -Hemoccult positive -Iron sulfate supplementation -GI consult for positive Hemoccult and persistent anemia -Transfuse PRN Diabetes mellitus, type II diet controlled continue Accu-Cheks with sliding scale insulin DVT prophylaxisheparin/SCDs Dietregular GI- Protonix, Colace, Senna, Milk of Mag; Miralax prn Discharge Planning Patient was supposed to be discharged to rehabilitation, however given her persistent anemia and positive Hemoccult, plan for gastroenterology eval and recommendations. GI recommends holding on procedures at this time. Patient to be managed conservatively with blood transfusion as need, PPIs, FOBT periodically, and if active bleeding might go for procedures. Ananya Cota MD Dec 30, 2016 07:14
[2016-12-30] MEDS: PARoxetine HCL 20 MG TAB PO SCH (08:48)
[2016-12-30] MEDS: METOPROLOL TARTRATE 25 MG TAB PO SCH ×2 (08:48→20:42)
[2016-12-30] MEDS: AMIODARONE 200 MG TAB PO SCH ×2 (08:48→20:44)
[2016-12-30] MEDS: cloNIDine HCL 0.2 MG TAB PO SCH ×2 (08:49→20:43)
[2016-12-30] MEDS: MULTIVITAMINS/MINERALS THERAPEUTIC TAB PO SCH (08:49)
[2016-12-30] MEDS: ASPIRIN 81 MG CHEW TAB PO SCH (08:49)
[2016-12-30] MEDS: PANTOPRAZOLE SOD 20 MG DELAYED RELEASE TAB PO SCH (08:49)
[2016-12-30] MEDS: SODIUM CHLORIDE 0.9% FLUSH 10 ML FLUSH IV FLUSH SCH ×2 (08:49→20:45)
[2016-12-30] MEDS: DOCUSATE SODIUM 100 MG CAP PO SCH ×2 (08:50→20:44)
[2016-12-30] MEDS: POLYETHYLENE GLYCOL 17 GM PKG PO SCH (08:50)
[2016-12-30] MEDS: MAGNESIUM HYDROXIDE SUSP 30 ML CUP PO SCH (08:50)
[2016-12-30] MEDS ORDERED: METO25TA3 PO (09:15)
[2016-12-30] MEDS ORDERED: ATOR40TA16 PO (09:15)
[2016-12-30] MEDS ORDERED: FERR325T PO (09:15)
[2016-12-30] MEDS ORDERED: PANT20 PO (09:15)
[2016-12-30] MEDS ORDERED: AMIO200T PO (09:15)
--- NOTE | 2016-12-30 09:15 | HHI.DS ---
Discharge Summary Admission Date Dec 21, 2016 at 10:44 Discharge Date: Dec 31, 2016 Admitting Diagnosis hypertensive emergency (1) S/P CABG x 3 ICD Code: Z95.1 Diagnosis: Principal (2) Blood loss anemia ICD Code: D50.0 Diagnosis: Principal (3) DM (diabetes mellitus) ICD Code: E11.9 Diagnosis: Secondary (4) Atrial fibrillation ICD Code: I48.91 Diagnosis: Secondary (5) GI bleeding ICD Code: K92.2 Diagnosis: Principal (6) Heme positive stool ICD Code: R19.5 Diagnosis: Principal (7) Postoperative atrial fibrillation ICD Code: I97.89 Diagnosis: Secondary (8) Multi-vessel coronary artery stenosis ICD Code: I25.10 Diagnosis: Secondary (9) CAD (coronary artery disease) ICD Code: I25.10 Diagnosis: Secondary Procedures EGD/colonoscopy Brief History - From Admission 71 years old female presented to the [facility] ED with a complaint of chest pain/tightness which is central 8-9 out of 10, constant, did not until improved until patient had nitroglycerin. No nausea or vomiting lightheaded short of breath or diaphoresis. Patient attributed this to a stressful event when she know about a in the family. No radiation no alleviating or exacerbating factor. In ED she was found to have a blood pressure of 183/72. Patient has history of hyperlipidemia hypertension and diet-controlled diabetes mellitus (she refused to be placed on medication by her PCP) patient denied any orthopnea PND, abdominal pain diarrhea constipation . Patient had a stress test in 2011 in January which showed no significant reversibility with EF 68%, however the Tab wrote a call part was not completed due to not reaching maximum heart rate CBC/BMP: 12/30/16 0548 12/30/16 0548 Significant Findings Laboratory Tests Test 12/27/16 12/28/16 12/28/16 12/29/16 13:09 06:30 23:42 05:30 Hemoglobin 7.9 GM/DL 7.2 GM/DL 9.7 GM/DL 8.4 GM/DL (11.6-15.3) (11.6-15.3) (11.6-15.3) (11.6-15.3) Hematocrit 23.3 % 22.0 % 28.0 % 24.1 % (35.0-46.0) (35.0-46.0) (35.0-46.0) (35.0-46.0) White Blood Count 16.3 TH/MM3 (4.0-11.0) Red Blood Count 2.46 MIL/MM3 (4.00-5.30) Platelet Count 142 TH/MM3 (150-450) Neutrophils (%) (Auto) 77.7 % (16.0-70.0) Monocytes (%) (Auto) 10.4 % (0.0-8.0) Neutrophils # (Auto) 12.6 TH/MM3 (1.8-7.7) Monocytes # (Auto) 1.7 TH/MM3 (0-0.9) Anion Gap 4 MEQ/L (5-15) Blood Urea Nitrogen 24 MG/DL (7-18) Estimat Glomerular Filtration 87 ML/MIN (>89) Rate Random Glucose 115 MG/DL (74-106) Calcium Level 7.8 MG/DL (8.5-10.1) Test 12/30/16 05:48 White Blood Count 12.1 TH/MM3 (4.0-11.0) Red Blood Count 3.38 MIL/MM3 (4.00-5.30) Hemoglobin 10.1 GM/DL (11.6-15.3) Hematocrit 30.5 % (35.0-46.0) Neutrophils (%) (Auto) 70.2 % (16.0-70.0) Monocytes (%) (Auto) 11.2 % (0.0-8.0) Neutrophils # (Auto) 8.5 TH/MM3 (1.8-7.7) Monocytes # (Auto) 1.4 TH/MM3 (0-0.9) Carbon Dioxide Level 32.6 MEQ/L (21.0-32.0) Blood Urea Nitrogen 19 MG/DL (7-18) Estimat Glomerular Filtration 86 ML/MIN (>89) Rate Calcium Level 8.3 MG/DL (8.5-10.1) Imaging Last Impressions Chest X-Ray 12/30/16 0600 Signed Impressions: Service Date/Time: Friday, December 30, 2016 03:50 - CONCLUSION: 1. Bibasilar consolidation and small bilateral pleural effusions. The density in the right lower lobe is slightly more prominent on current study. 2. Cardiomegaly and previous CABG. Dominick Urban MD Lower Extremity Ultrasound 12/23/16 Signed Impressions: Service Date/Time: Friday, December 23, 2016 15:18 - CONCLUSION: 1. Vein mapping as above. Braeden Morel MD Chest CT 12/23/16 Signed Impressions: Service Date/Time: Friday, December 23, 2016 16:33 - CONCLUSION: 1. Advanced atherosclerotic plaquing and calcification of the aortic annulus. 2. The lungs are clear. 3. Degenerative changes in the spine. Braeden Morel MD Carotid Artery Ultrasound 12/23/16 Signed Impressions: Service Date/Time: Friday, December 23, 2016 14:53 - CONCLUSION: 1. No hemodynamically significant carotid artery stenosis identified. 2. There is minimal atherosclerotic plaquing at the bifurcations. Braeden Morel MD PE at Discharge GENERAL: Pleasant 71 yo Female, well nourished, well developed patient, appears in NAD. SKIN: Warm and dry. HEAD: Atraumatic. Normocephalic. EYES: Pupils equal and round. No scleral icterus. No injection or drainage. ENT: No nasal bleeding or discharge. Mucous membranes pink and moist. NECK: Trachea midline. No JVD. CARDIOVASCULAR: Regular rate and rhythm. RESPIRATORY: No accessory muscle use. Clear to auscultation. Breath sounds equal bilaterally. GASTROINTESTINAL: Abdomen soft, non-tender, nondistended. Hepatic and splenic margins not palpable. MUSCULOSKELETAL: Extremities without clubbing, cyanosis, or edema. No obvious deformities. NEUROLOGICAL: Awake and alert. No obvious cranial nerve deficits. Motor grossly within normal limits. Five out of 5 muscle strength in the arms and legs. Normal speech. PSYCHIATRIC: Appropriate mood and affect; insight and judgment normal. Hospital Course Patient is a 71-year-old female, coming to the hospital found to have NSTEMI, now status post CABG 3 being followed by cardiovascular surgery. Non-STEMI. Postop day 4 status post CABG 3 continue aspirin, beta anton, and statin. -Continue postoperative care, pain control, rehabilitation per cardiothoracic surgery. -Acapella and incentive spirometry -Tramadol prn pain HTN. Patient initially presenting hypertensive urgency now resolved. -Clonidine restarted at clonidine 0.2 mg by mouth every 12 hours. -Closely monitor blood pressure Atrial fibrillationcurrently rate controlled -continue with beta anton and amiodarone. -Cardiology is recommending Eliquis given patient has CHADSVASc 5, will defer to cardiothoracic surgeon. Anemia -s/p 1 unit PRBCs with appropriate response; however patient's hemoglobin dropped again today to 8.4 from 9.7 -Hemoccult positive -Iron sulfate supplementation -GI consult for positive Hemoccult and persistent anemia -Transfuse PRN Diabetes mellitus, type II diet controlled continue Accu-Cheks with sliding scale insulin DVT prophylaxisheparin/SCDs Dietregular GI- Protonix, Colace, Senna, Milk of Mag; Miralax prn Discharge Planning Patient was supposed to be discharged to rehabilitation, however given her persistent anemia and positive Hemoccult, plan for gastroenterology eval and recommendations. GI recommends holding on procedures at this time. Patient to be managed conservatively with blood transfusion as need, PPIs, FOBT periodically, and if active bleeding might go for procedures. Had EGD/colonoscopy 12/31. With PUD, diverticulosis. Continue PPI. OK for low dose anticoagulant per GI. Pt Condition on Discharge: Stable Discharge Disposition: Discharge to SNF Discharge Time: > 30 minutes Discharge Instructions DIET: Follow Instructions for: Heart Healthy Diet, Diabetic Diet Activities you can perform: Regular-No Restrictions Follow up Referrals: Cardiology Gastroenterology - 2 Weeks PCP Follow-up SNF/[facility]/ with [facility] New Medications: Apixaban (Eliquis) 2.5 Mg Tab 2.5 MG PO BID Blood Clot Prevention #60 Ref 2 TAB Amiodarone (Amiodarone) 200 Mg Tab 200 MG PO BID Blood Pressure Management #30 TAB Atorvastatin (Atorvastatin) 40 Mg Tab 40 MG PO HS Cholesterol Management #30 TAB Ferrous Sulfate (Ferrous Sulfate) 325 Mg Tab 325 MG PO BID@12,17 anemia #60 TAB Metoprolol Tartrate (Metoprolol Tartrate) 25 Mg Tab 25 MG PO BID Blood Pressure Management #60 TAB Pantoprazole (Protonix) 20 Mg Tab 20 MG PO DAILY gerd #30 TAB Tramadol (Ultram) 50 Mg Tab 50 MG PO Q6H PRN PAIN #20 TAB Continued Medications: Clonidine (Clonidine) 0.2 Mg Tab 0.2 MG PO BID Blood Pressure Management #60 Ref 0 TAB Enalapril (Enalapril) 20 Mg Tab Unknown Dose PO BID #30 Ref 0 TAB Paroxetine (Paroxetine) 10 Mg Tab Unknown Dose PO DAILY #30 Ref 0 TAB Discontinued Medications: Atenolol (Atenolol) 50 Mg Tab 50 MG PO DAILY Blood Pressure Management #30 Ref 0 TAB Lovastatin (Lovastatin) 20 Mg Tab Unknown Dose PO HS Cholesterol Management #30 Ref 0 TAB Omeprazole (Omeprazole) 20 Mg Tab Unknown Dose PO DAILY #30 Ref 0 TAB Ananya Cota MD Dec 30, 2016 09:15
[2016-12-30] MEDS ORDERED: ULTR50TA5 PO (10:02)
--- NOTE | 2016-12-30 10:52 | PD.PN.STU ---
Subjective Remarks Patient feeling well, resting comfortably in chair. No complaints of pain. Denies any dark or bloody stools. Objective Vitals Vital Signs Date Time Temp Pulse Resp B/P Pulse Ox O2 Delivery O2 Flow Rate FiO2 12/30/16 08:00 70 12/30/16 07:00 94 Nasal Cannula 1.50 12/30/16 07:00 70 12/30/16 07:00 97.5 73 16 128/67 94 12/30/16 06:00 68 12/30/16 05:05 98.2 69 16 124/76 93 12/30/16 05:00 93 Nasal Cannula 1.00 12/30/16 05:00 64 12/30/16 04:00 66 12/30/16 03:00 70 12/30/16 02:00 66 12/30/16 01:50 98.1 81 16 120/63 92 12/30/16 01:00 70 12/30/16 00:00 64 12/29/16 23:23 94 Nasal Cannula 1.00 12/29/16 23:00 70 12/29/16 22:00 70 12/29/16 21:46 Nasal Cannula 3.00 12/29/16 21:19 98.8 77 16 146/85 91 12/29/16 21:18 94 Nasal Cannula 1.00 12/29/16 21:00 76 12/29/16 20:00 76 12/29/16 19:00 70 12/29/16 18:29 70 12/29/16 17:08 66 12/29/16 16:07 79 12/29/16 15:00 97.6 71 18 145/76 94 12/29/16 15:00 94 Nasal Cannula 1.00 12/29/16 15:00 68 12/29/16 13:26 66 12/29/16 12:42 61 12/29/16 11:46 95 Nasal Cannula 2.00 12/29/16 11:46 97.6 67 18 117/70 95 12/29/16 11:00 66 I/O 12/29/16 12/29/16 12/29/16 12/30/16 12/30/16 12/30/16 07:00 15:00 23:00 07:00 15:00 23:00 Intake Total 360 ml 720 ml 240 ml Output Total 1201 ml 802 ml 350 ml Balance -841 ml -82 ml -110 ml Intake Oral 360 ml 720 ml 240 ml IV Total 0 ml Output Urine Total 1200 ml 800 ml 350 ml Stool Total 1 ml 2 ml # Bowel Movements 1 Result Diagram: 12/30/1654712/30/16547 Objective Remarks GENERAL: elderly white female, no acute distress HEENT: Normocephalic, atraumatic. PERRL, EOMI CARDIAC: Minimal chest wall tenderness surrounding recent wound site, no erythema, no drainage. S1, S2 heard, no murmur. PULM: clear BS throughout, no wheezes, no crackles. ABDOMEN: Soft, non tender, non distended. MUSCULOSKELETAL: Ecchymosis to bilateral UE from previous IV sites, no LE edema. NEURO: No gross deficits. A/P Assessment and Plan 1. CAD 2. IA 3. CAB X 3 4. DM Type 2 5. Blood loss anemia 6. Post surgical Afib Plan: Spoke to Shakira requesting patient be placed on Eliquis for post operative atrial fibrillation, given patients anemic status and + stool guaiac testing, will need endoscopy/colonoscopy for blood loss GI work out before being anticoagulated. Need clearance from CARD Dr. Babb for procedure clearance. Page out to Dr. Babb, will await consult for further decision. Viki Scott M3 Dec 30, 2016 10:52
[2016-12-30] MEDS: FERROUS SULFATE 325 MG (65 MG ELEMENTAL IRON) TAB PO SCH ×2 (11:06→17:41)
--- NOTE | 2016-12-30 11:38 | HHI.GIFU ---
Subjective Remarks Patient feeling well, resting comfortably in chair. No complaints of pain. Denies any dark or bloody stools. (Bita Wetzel) Objective Vitals I&O Vital Signs Date Time Temp Pulse Resp B/P Pulse Ox O2 Delivery O2 Flow Rate FiO2 12/30/16 11:00 95 Nasal Cannula 1.50 12/30/16 11:00 67 12/30/16 11:00 98.2 65 16 86/52 95 12/30/16 10:40 98 Nasal Cannula 2.00 12/30/16 10:00 64 12/30/16 09:00 74 12/30/16 08:00 70 12/30/16 07:00 94 Nasal Cannula 1.50 12/30/16 07:00 70 12/30/16 07:00 97.5 73 16 128/67 94 12/30/16 06:00 68 12/30/16 05:05 98.2 69 16 124/76 93 12/30/16 05:00 93 Nasal Cannula 1.00 12/30/16 05:00 64 12/30/16 04:00 66 12/30/16 03:00 70 12/30/16 02:00 66 12/30/16 01:50 98.1 81 16 120/63 92 12/30/16 01:00 70 12/30/16 00:00 64 12/29/16 23:23 94 Nasal Cannula 1.00 12/29/16 23:00 70 12/29/16 22:00 70 12/29/16 21:46 Nasal Cannula 3.00 12/29/16 21:19 98.8 77 16 146/85 91 12/29/16 21:18 94 Nasal Cannula 1.00 12/29/16 21:00 76 12/29/16 20:00 76 12/29/16 19:00 70 12/29/16 18:29 70 12/29/16 17:08 66 12/29/16 16:07 79 12/29/16 15:00 97.6 71 18 145/76 94 12/29/16 15:00 94 Nasal Cannula 1.00 12/29/16 15:00 68 12/29/16 13:26 66 12/29/16 12:42 61 12/29/16 11:46 95 Nasal Cannula 2.00 12/29/16 11:46 97.6 67 18 117/70 95 I/O 12/29/16 12/29/16 12/29/16 12/30/16 12/30/16 12/30/16 07:00 15:00 23:00 07:00 15:00 23:00 Intake Total 360 ml 720 ml 240 ml Output Total 1201 ml 802 ml 350 ml Balance -841 ml -82 ml -110 ml Intake Oral 360 ml 720 ml 240 ml IV Total 0 ml Output Urine Total 1200 ml 800 ml 350 ml Stool Total 1 ml 2 ml # Bowel Movements 1 Laboratory Laboratory Tests Test 12/30/16 05:48 White Blood Count 12.1 Red Blood Count 3.38 Hemoglobin 10.1 Hematocrit 30.5 Mean Corpuscular Volume 90.1 Mean Corpuscular Hemoglobin 29.8 Mean Corpuscular Hemoglobin 33.1 Concent Red Cell Distribution Width 14.3 Platelet Count 180 Mean Platelet Volume 8.0 Neutrophils (%) (Auto) 70.2 Lymphocytes (%) (Auto) 16.9 Monocytes (%) (Auto) 11.2 Eosinophils (%) (Auto) 1.6 Basophils (%) (Auto) 0.1 Neutrophils # (Auto) 8.5 Lymphocytes # (Auto) 2.0 Monocytes # (Auto) 1.4 Eosinophils # (Auto) 0.2 Basophils # (Auto) 0.0 CBC Comment DIFF FINAL Differential Comment Sodium Level 142 Potassium Level 4.2 Chloride Level 102 Carbon Dioxide Level 32.6 Anion Gap 7 Blood Urea Nitrogen 19 Creatinine 0.68 Estimat Glomerular Filtration 86 Rate Random Glucose 92 Calcium Level 8.3 Date/Time Procedure Status Source Growth 12/29/16 15:15 Stool Occult Blood (JETHRO) - Final Complete Stool Stool HEMOCCULT POSITIVE Imaging Last Impressions Chest X-Ray 12/30/16 0600 Signed Impressions: Service Date/Time: Friday, December 30, 2016 03:50 - CONCLUSION: 1. Bibasilar consolidation and small bilateral pleural effusions. The density in the right lower lobe is slightly more prominent on current study. 2. Cardiomegaly and previous CABG. Dominick Urban MD Lower Extremity Ultrasound 12/23/16 0000 Signed Impressions: Service Date/Time: Friday, December 23, 2016 15:18 - CONCLUSION: 1. Vein mapping as above. Braeden Morel MD Chest CT 12/23/16 0000 Signed Impressions: Service Date/Time: Friday, December 23, 2016 16:33 - CONCLUSION: 1. Advanced atherosclerotic plaquing and calcification of the aortic annulus. 2. The lungs are clear. 3. Degenerative changes in the spine. Braeden Morel MD Carotid Artery Ultrasound 12/23/16 0000 Signed Impressions: Service Date/Time: Friday, December 23, 2016 14:53 - CONCLUSION: 1. No hemodynamically significant carotid artery stenosis identified. 2. There is minimal atherosclerotic plaquing at the bifurcations. Braeden Morel MD Physical Exam GENERAL: elderly white female, no acute distress HEENT: Normocephalic, atraumatic. PERRL, EOMI CARDIAC: Minimal chest wall tenderness surrounding recent wound site, no erythema, no drainage. S1, S2 heard, no murmur. PULM: clear BS throughout, no wheezes, no crackles. ABDOMEN: Soft, non tender, non distended. MUSCULOSKELETAL: Ecchymosis to bilateral UE from previous IV sites, no LE edema. NEURO: No gross deficits. (Bita Wetzel) Assessment and Plan Plan ASSESSMENT: - Anemia, Hemoccult (+) Stool. GI consulted for further evaluation with EGD/ Colonoscopy. Pt denies any active bleeding and HH was stable, so initially we were going to closely monitor and then consider EGD/Colonoscopy if active bleeding. However, received call from CVT, requesting GI workup so that patient can be started on Eliquis for atrial fibrillation. Spoke to Dr. Child- cleared for procedures from GI standpoint. Long discussion with patient and daughter- they are now agreeable. - CAD/MN. S/P CABG x 3, per CVT, Cardiology - Atrial fibrillation. CVT requesting GI workup so that pt can be started on Eliquis. Pt cleared from cardiology standpoint per Dr. Child. PLAN: - Plan for EGD/Colonoscopy in am - Obtain consents - Clear liquids - NPO after MN - Golytely prep - PPI - Monitor HH - Supportive care - Further recommendations to follow based on results of above - Pt seen and examined by Dr. Romero and myself and this note is written on his behalf (Bita Wetzel) Physician Comments patient was seen and examined, agree with above note, cardiac team want us to proceed with the colon EGD, higher but reasonable risk, we will plan for tomorrow, prep today. (Gina Romero MD) Bita Wetzel Dec 30, 2016 11:38 Gina Romero MD Dec 30, 2016 13:44
--- NOTE | 2016-12-30 11:58 | PD.CARD.PN ---
Subjective Subjective Remarks No chest pain, no shortness of breath Drop in Hgb over the weekend, not started on Eliquis, received PRBC Objective Medications Current Medications Medications (Trade) Dose Ordered Sig/Rey Route Start Time Stop Time Status Last Admin (NS Flush) 2 ml BID IV FLUSH 12/21/16 21:00 12/30/16 08:49 (NS Flush) 2 ml UNSCH PRN IV FLUSH 12/21/16 10:45 (Lipitor) 40 mg HS PO 12/21/16 21:00 12/29/16 21:03 (Tylenol) 650 mg Q4H PRN PO 12/23/16 16:15 12/29/16 09:32 (Aspirin Chew) 81 mg DAILY PO 12/26/16 09:00 12/30/16 08:49 (Tylenol) 650 mg Q4H PRN PO 12/25/16 14:15 (Tylenol Supp) 650 mg Q4H PRN RECTAL 12/25/16 14:15 (Zofran Inj) 4 mg Q6H PRN IV PUSH 12/25/16 14:15 12/27/16 08:38 Metoprolol Tartrate 2.5 mg 2.5 mg Q1H PRN IV PUSH 12/25/16 14:15 Magnesium Sulfate 2 gm/Sodium Chloride 104 ml @ 100 mls/hr UNSCH PRN IV 12/25/16 14:15 (Magnesium Sulfate Inj/NS Inj) 104 ml @ 50 mls/hr UNSCH PRN IV 12/25/16 14:15 12/26/16 07:51 (Calcium Chloride Inj) 0.5 gm UNSCH PRN IV 12/25/16 14:15 (Paxil) 20 mg DAILY PO 12/26/16 09:00 12/30/16 08:48 (Colace) 100 mg BID PO 12/26/16 21:00 12/29/16 09:30 (Theragran M Tab) 1 tab DAILY PO 12/26/16 09:00 12/30/16 08:49 (Milk Of Magnesia Liq) 30 ml DAILY PO 12/26/16 09:00 12/28/16 08:01 (Miralax) 17 gm DAILY PO 12/27/16 09:00 12/29/16 09:32 (Senokot) 8.6 mg HS PO 12/26/16 21:00 12/28/16 21:29 (D50w (Vial) Inj) 25 ml UNSCH PRN IV 12/26/16 08:45 (Glucagon Inj) 1 mg UNSCH PRN OTHER 12/26/16 08:45 (Pill Splitter) 1 ea UNSCH PRN OTHER 12/26/16 09:00 (Lopressor) 25 mg BID PO 12/26/16 21:00 12/30/16 08:48 (Ultram) 50 mg Q6H PRN PO 12/27/16 13:45 12/29/16 21:00 (Catapres) 0.2 mg Q12HR PO 12/28/16 11:00 12/30/16 08:49 (Dulcolax Supp) 10 mg DAILY PRN RECTAL 12/28/16 13:30 12/28/16 17:27 (Fleets Enema (Adult)) 133 ml DAILY PRN RECTAL 12/28/16 14:00 (Protonix) 20 mg DAILY PO 12/30/16 09:00 12/30/16 08:49 (Ferrous Sulfate) 325 mg BID@12,17 PO 12/29/16 17:19 12/30/16 11:06 (Benadryl) 25 mg HS PRN PO 12/29/16 21:15 (Cordarone) 200 mg BID PO 12/30/16 21:00 01/06/17 09:01 (Cordarone) 200 mg BID PO 01/07/17 09:00 01/10/17 09:01 (Colyte Liq) 4,000 ml ONCE ONCE PO 12/30/16 16:00 12/30/16 16:01 Vital Signs / I&O Vital Signs Date Time Temp Pulse Resp B/P Pulse Ox O2 Delivery O2 Flow Rate FiO2 12/30/16 11:00 95 Nasal Cannula 1.50 12/30/16 11:00 67 12/30/16 11:00 98.2 65 16 86/52 95 12/30/16 10:40 98 Nasal Cannula 2.00 12/30/16 10:00 64 12/30/16 09:00 74 12/30/16 08:00 70 12/30/16 07:00 94 Nasal Cannula 1.50 12/30/16 07:00 70 12/30/16 07:00 97.5 73 16 128/67 94 4/10/17 06:00 68 12/30/16 05:05 98.2 69 16 124/76 93 12/30/16 05:00 93 Nasal Cannula 1.00 12/30/16 05:00 64 12/30/16 04:00 66 12/30/16 03:00 70 12/30/16 02:00 66 12/30/16 01:50 98.1 81 16 120/63 92 12/30/16 01:00 70 12/30/16 00:00 64 12/29/16 23:23 94 Nasal Cannula 1.00 12/29/16 23:00 70 12/29/16 22:00 70 12/29/16 21:46 Nasal Cannula 3.00 12/29/16 21:19 98.8 77 16 146/85 91 12/29/16 21:18 94 Nasal Cannula 1.00 12/29/16 21:00 76 12/29/16 20:00 76 12/29/16 19:00 70 12/29/16 18:29 70 12/29/16 17:08 66 12/29/16 16:07 79 12/29/16 15:00 97.6 71 18 145/76 94 12/29/16 15:00 94 Nasal Cannula 1.00 12/29/16 15:00 68 12/29/16 13:26 66 12/29/16 12:42 61 I/O 12/29/16 12/29/16 12/29/16 12/30/16 12/30/16 12/30/16 07:00 15:00 23:00 07:00 15:00 23:00 Intake Total 360 ml 720 ml 240 ml Output Total 1201 ml 802 ml 350 ml Balance -841 ml -82 ml -110 ml Intake Oral 360 ml 720 ml 240 ml IV Total 0 ml Output Urine Total 1200 ml 800 ml 350 ml Stool Total 1 ml 2 ml # Bowel Movements 1 Physical Exam GENERAL: NAD, AAOx3 SKIN: Warm and dry. HEAD: Atraumatic. Normocephalic. EYES: Pupils equal and round. No scleral icterus. No injection or drainage. ENT: No nasal bleeding or discharge. Mucous membranes pink and moist. NECK: Trachea midline. No JVD. CARDIOVASCULAR: Irregularly irregular. Sternotomy with wound vac RESPIRATORY: No accessory muscle use. Decreased breath sounds bilaterally GASTROINTESTINAL: Abdomen soft, non-tender, nondistended. Hepatic and splenic margins not palpable. MUSCULOSKELETAL: Extremities without clubbing, cyanosis, or edema. No obvious deformities. Bilateral radial with ecchymosis, edema NEUROLOGICAL: Awake and alert. No obvious cranial nerve deficits. Motor grossly within normal limits. Five out of 5 muscle strength in the arms and legs. Normal speech. PSYCHIATRIC: Appropriate mood and affect; insight and judgment normal. Laboratory Laboratory Tests Test 12/30/16 05:48 White Blood Count 12.1 TH/MM3 Red Blood Count 3.38 MIL/MM3 Hemoglobin 10.1 GM/DL Hematocrit 30.5 % Mean Corpuscular Volume 90.1 FL Mean Corpuscular Hemoglobin 29.8 PG Mean Corpuscular Hemoglobin 33.1 % Concent Red Cell Distribution Width 14.3 % Platelet Count 180 TH/MM3 Mean Platelet Volume 8.0 FL Neutrophils (%) (Auto) 70.2 % Lymphocytes (%) (Auto) 16.9 % Monocytes (%) (Auto) 11.2 % Eosinophils (%) (Auto) 1.6 % Basophils (%) (Auto) 0.1 % Neutrophils # (Auto) 8.5 TH/MM3 Lymphocytes # (Auto) 2.0 TH/MM3 Monocytes # (Auto) 1.4 TH/MM3 Eosinophils # (Auto) 0.2 TH/MM3 Basophils # (Auto) 0.0 TH/MM3 CBC Comment DIFF FINAL Differential Comment Sodium Level 142 MEQ/L Potassium Level 4.2 MEQ/L Chloride Level 102 MEQ/L Carbon Dioxide Level 32.6 MEQ/L Anion Gap 7 MEQ/L Blood Urea Nitrogen 19 MG/DL Creatinine 0.68 MG/DL Estimat Glomerular Filtration 86 ML/MIN Rate Random Glucose 92 MG/DL Calcium Level 8.3 MG/DL Assessment and Plan Problem List: (1) [place], acute, non ST segment elevation (2) CAD (coronary artery disease) (3) S/P CABG x 3 (4) DM (diabetes mellitus) (5) Blood loss anemia (6) Postoperative atrial fibrillation (7) Heme positive stool (8) GI bleeding Assessment and Plan 1) s/p CABGx3 (VERDUZCO to LAD, SVG to OM, SVG to PDA) POD #5 2) ASA/Statin/BB/Amio 3) Heart rates controlled on BB/Amio 4) Anticoagulation held due to anemia, drop in Hgb and heme-occult positive stool 5) Afib [id number] = 5, would like to place on anticoagulation due to higher risk 6) Discussed with GI for EGD/Cscope, patient has been revascularized, afib controlled... may proceed 7) Depending on the results, may place on anticoagulation once able to by GI Problem Qualifiers (1) CAD (coronary artery disease): Qualified Code: I25.110 - Coronary artery disease involving [place] coronary artery of [place] heart with unstable angina pectoris Rubin Child DO Dec 30, 2016 11:58
[2016-12-30] MEDS ORDERED: PEG (High)/E-LYTE SOLN 4000 ML BTL PO ONE (16:00)
[2016-12-30] MEDS: ATORVASTATIN 40 MG TAB PO SCH (20:42)
[2016-12-30] MEDS: traMADol HCL 50 MG TAB PO PRN (20:43)
[2016-12-30] MEDS: SENNOSIDES 8.6 MG TAB PO SCH (20:44)
[2016-12-31] VITALS (20 sets, daily range): BP systolic 105–144; BP diastolic 57–85; PULSE 60–101; RESP 16–20; TEMP 97.6–98.4; O2SAT 93–98
[2016-12-31] MEDS ORDERED: LACTATED RINGER'S 1000 ML IV PRN (02:45)
[2016-12-31] MEDS ORDERED: CHLORHEXIDINE GLUCONATE 2 % 1 PACK (2 CLOTHS) TOPICAL PRN (02:45)
[2016-12-31] MEDS ORDERED: POVIDONE IODINE 5% (ANTISEPSIS KIT) 4 APPLICATIONS EACH NARE PRN (02:45)
[2016-12-31] MEDS ORDERED: SODIUM CHLORID 0.9% 500 ML IV PRN (02:45)
[2016-12-31] MEDS: INSULIN ASPART SUPPLEMENTAL SCALE SQ SCH ×3 (07:00→16:11)
--- NOTE | 2016-12-31 08:16 | HHI.PR ---
Subjective Remarks In the chair. Says she has multiple BM black color ( after bowel prep) No chest pain. No nausea or vomiting. No pain in her belly. Denies fever or chills. Objective Vitals Vital Signs Date Time Temp Pulse Resp B/P Pulse Ox O2 Delivery O2 Flow Rate FiO2 12/31/16 07:00 97 Room Air 12/31/16 07:00 83 12/31/16 07:00 98.4 78 16 144/72 97 12/31/16 06:10 73 12/31/16 05:00 68 12/31/16 04:33 96 Nasal Cannula 2.00 12/31/16 04:33 98.3 70 16 142/85 96 12/31/16 04:00 70 12/31/16 03:00 60 12/31/16 02:22 67 12/31/16 01:15 62 12/31/16 00:00 64 12/30/16 23:30 99 Nasal Cannula 2.00 12/30/16 23:10 68 12/30/16 23:10 97.7 69 16 90/62 99 12/30/16 22:06 64 12/30/16 21:00 72 12/30/16 20:00 70 12/30/16 19:20 98 Nasal Cannula 2.00 12/30/16 19:20 97.6 91 20 141/83 98 12/30/16 19:00 71 12/30/16 18:00 73 12/30/16 17:45 96 Nasal Cannula 2.00 12/30/16 17:00 70 12/30/16 16:00 69 12/30/16 15:00 66 12/30/16 15:00 97.5 65 17 111/49 96 12/30/16 15:00 Nasal Cannula 1.50 12/30/16 14:01 67 12/30/16 13:00 60 12/30/16 12:00 63 12/30/16 11:00 95 Nasal Cannula 1.50 12/30/16 11:00 67 12/30/16 11:00 98.2 65 16 86/52 95 12/30/16 10:40 98 Nasal Cannula 2.00 12/30/16 10:00 64 12/30/16 09:00 74 I/O 12/30/16 12/30/16 12/30/16 12/31/1617 4/11/17 07:00 15:00 23:00 07:00 15:00 23:00 Intake Total 240 ml 840 ml 2000 ml Output Total 350 ml 450 ml Balance -110 ml 390 ml 2000 ml Intake Oral 240 ml 840 ml 2000 ml Output Urine Total 350 ml 450 ml # Voids 4 # Bowel Movements 1 1 6 Result Diagram: 12/30/16 0548 12/30/16 0548 Imaging Last Impressions Chest X-Ray 12/30/16 0600 Signed Impressions: Service Date/Time: Friday, December 30, 2016 03:50 - CONCLUSION: 1. Bibasilar consolidation and small bilateral pleural effusions. The density in the right lower lobe is slightly more prominent on current study. 2. Cardiomegaly and previous CABG. Dominick Urban MD Lower Extremity Ultrasound 12/23/16 0000 Signed Impressions: Service Date/Time: Friday, December 23, 2016 15:18 - CONCLUSION: 1. Vein mapping as above. Braeden Morel MD Chest CT 12/23/16 0000 Signed Impressions: Service Date/Time: Friday, December 23, 2016 16:33 - CONCLUSION: 1. Advanced atherosclerotic plaquing and calcification of the aortic annulus. 2. The lungs are clear. 3. Degenerative changes in the spine. Braeden Morel MD Carotid Artery Ultrasound 12/23/16 0000 Signed Impressions: Service Date/Time: Friday, December 23, 2016 14:53 - CONCLUSION: 1. No hemodynamically significant carotid artery stenosis identified. 2. There is minimal atherosclerotic plaquing at the bifurcations. Braeden Morel MD Objective Remarks GENERAL: Pleasant 71 yo Female, well nourished, well developed patient, appears in NAD. SKIN: Warm and dry. HEAD: Atraumatic. Normocephalic. EYES: Pupils equal and round. No scleral icterus. No injection or drainage. ENT: No nasal bleeding or discharge. Mucous membranes pink and moist. NECK: Trachea midline. No JVD. CARDIOVASCULAR: Regular rate and rhythm. RESPIRATORY: No accessory muscle use. Clear to auscultation. Breath sounds equal bilaterally. GASTROINTESTINAL: Abdomen soft, non-tender, nondistended. Hepatic and splenic margins not palpable. MUSCULOSKELETAL: Extremities without clubbing, cyanosis, or edema. No obvious deformities. NEUROLOGICAL: Awake and alert. No obvious cranial nerve deficits. Motor grossly within normal limits. Five out of 5 muscle strength in the arms and legs. Normal speech. PSYCHIATRIC: Appropriate mood and affect; insight and judgment normal. A/P Problem List: (1) S/P CABG x 3 ICD Code: Z95.1 Status: Acute (2) Blood loss anemia ICD Code: D50.0 Status: Acute (3) DM (diabetes mellitus) ICD Code: E11.9 Status: Acute (4) Atrial fibrillation ICD Code: I48.91 Status: Acute Assessment and Plan Patient is a 71-year-old female, coming to the hospital found to have NSTEMI, now status post CABG 3 being followed by cardiovascular surgery. Non-STEMI. Postop day 4 status post CABG 3 continue aspirin, beta anton, and statin. -Continue postoperative care, pain control, rehabilitation per cardiothoracic surgery. -Acapella and incentive spirometry -Tramadol prn pain HTN. Patient initially presenting hypertensive urgency now resolved. -Clonidine restarted at clonidine 0.2 mg by mouth every 12 hours. -Closely monitor blood pressure Atrial fibrillationcurrently rate controlled -continue with beta anton and amiodarone. -Cardiology is recommending Eliquis given patient has CHADSVASc 5, will defer to cardiothoracic surgeon. Anemia -s/p 1 unit PRBCs with appropriate response; however patient's hemoglobin dropped again today to 8.4 from 9.7 -Hemoccult positive -Iron sulfate supplementation -GI consult for positive Hemoccult and persistent anemia -Transfuse PRN Diabetes mellitus, type II diet controlled continue Accu-Cheks with sliding scale insulin DVT prophylaxisheparin/SCDs Dietregular GI- Protonix, Colace, Senna, Milk of Mag; Miralax prn Discharge Planning Patient was supposed to be discharged to rehabilitation, however given her persistent anemia and positive Hemoccult, plan for gastroenterology eval and recommendations. GI recommends holding on procedures at this time. Patient to be managed conservatively with blood transfusion as need, PPIs, FOBT periodically, and if active bleeding might go for procedures. Plan for EGD.colonoscopy 12/31 Ananya Cota MD Dec 31, 2016 08:16
[2016-12-31] MEDS: METOPROLOL TARTRATE 25 MG TAB PO SCH (08:32)
[2016-12-31] MEDS: AMIODARONE 200 MG TAB PO SCH (08:32)
[2016-12-31] MEDS: ASPIRIN 81 MG CHEW TAB PO SCH (08:32)
[2016-12-31] MEDS: cloNIDine HCL 0.2 MG TAB PO SCH (08:32)
[2016-12-31] MEDS: PANTOPRAZOLE SOD 20 MG DELAYED RELEASE TAB PO SCH (08:32)
[2016-12-31] MEDS: PARoxetine HCL 20 MG TAB PO SCH (08:32)
[2016-12-31] MEDS: SODIUM CHLORIDE 0.9% FLUSH 10 ML FLUSH IV FLUSH SCH (08:33)
[2016-12-31] MEDS: DOCUSATE SODIUM 100 MG CAP PO SCH (08:33)
[2016-12-31] MEDS: MAGNESIUM HYDROXIDE SUSP 30 ML CUP PO SCH (08:33)
[2016-12-31] MEDS: POLYETHYLENE GLYCOL 17 GM PKG PO SCH (08:34)
[2016-12-31] MEDS: MULTIVITAMINS/MINERALS THERAPEUTIC TAB PO SCH (08:34)
[2016-12-31] MEDS ORDERED: PROPOFOL 200 MG/20 ML AMP IV ONE (09:49)
--- NOTE | 2016-12-31 10:22 | GIPROC ---
[facility] [address] [facility]. [facility], [address] COLONOSCOPY PROCEDURE REPORT EXAM DATE: 12/31/2016 PATIENT NAME: Sybil White MR #: [id number] BIRTHDATE: 1945 ENDOSCOPIST: Gina Romero MD ORDER #: [id number] INTERNET DESIGNER: Chente Haas and Aster Cantu STATUS: inpatient INDICATIONS: The patient is a 71 yr old female here for a colonoscopy due to anemia, non-specific and heme-positive stool PROCEDURE PERFORMED: Colonoscopy with biopsy MEDICATIONS: None and Per Anesthesia. PREP QUALITY: fair ESTIMATED BLOOD LOSS: None CONSENT: The patient understands the risks and benefits of the procedure and understands that these risks include, but are not limited to: sedation, allergic reaction, infection, perforation and/or bleeding. Alternative means of evaluation and treatment include, among others: physical exam, x-rays, and/or surgical intervention. The patient elects to proceed with this endoscopic procedure. medical equipment was checked for proper function. Hand hygiene and appropriate measures for infection prevention was taken. After the risks, benefits and alternatives of the procedure were thoroughly explained, Informed consent was verified, confirmed and timeout was successfully executed by the treatment team. A digital exam revealed no abnormalities of the rectum The Pentax [id number] endoscope was introduced through the anus and advanced to the cecum, which was identified by both the appendix and ileocecal valve. The instrument was then slowly withdrawn as the colon was fully examined. COLON FINDINGS: Erythema in the rectum, mild, Bx done. Moderate diverticulosis was noted throughout the entire examined colon. Retroflexed views revealed medium internal hemorrhoids The scope was then completely withdrawn from the patient and the procedure terminated. ADVERSE EVENTS: There were no complications. IMPRESSIONS: 1. Erythema in the rectum, mild, Bx done 2. Moderate diverticulosis was noted throughout the entire examined colon 3. Retroflexed views revealed medium internal hemorrhoids 4. Revealed no abnormalities of the rectum RECOMMENDATIONS: 1. Await biopsy results. Biopsy results will not be ready for 7-10 days. If you don't hear from us in two weeks, call our office for results. 2. High fiber diet 3. Yearly hemoccult RECALL: Return 5 years Colonoscopy Gina Romero MD eSigned: Gina Romero MD 12/31/2016 10:21 AM cc: PATIENT NAME: Sybil White MR#: [id number]
--- NOTE | 2016-12-31 10:26 | PD.CAR.PN ---
CVT Progress Note Subjective/Hospital Course: 71/ female presented with SOB and chest tightness, after hearing news of her Godmother passing away. Her trop was 0.23/ + NSTEMI underwent heart cath multivessel disease LAD 70%, Circ 70%, RCA 50% proximal and mid distal 90% CT chest plaquing and calcification of aortic annulus , EF 60% PMH: DM, HTN 12/24 no c/o of chest pain scheduled for surgery in am CABG x 4 dc lovenox after this pm dose 12/25 surgery: CABG x 3 right EVH extubated after surgery 12/26 up in chair, on nasal cannula gentle diuresis on BB , statin ASA NSR leave chest tube in 380cc/ 12 hrs HGB 7.7/ transfuse one unit PRBC diuresis after blood infused 12/27 went into afib last pm given additional bolus amiodarone on po dose 400mg bid discussed with Dr Lux, ok to start eliquis tonight or in am / hold clonidine 2/2 labile BP Willian v score of 5.2 dc narcotics, ultram for pain gentle diuresis 12/28/16 Weak, dizzy. No BM 12/29/16 Improved ambulation s/p transfusion and diuresis. +BM 12/30 pt on nasal cannula spoke with Dr Child and Bita KELLEY for Dr Loyd pt has Willian v score 5.2 high risk for stroke if not able to start NOAC pt now scheduled for EGD/ Colonoscopy in am Objective: GENERAL: SKIN: Warm and dry.prevena dressing to chest / leg incision intact and well approximated HEAD: Normocephalic. EYES: No scleral icterus. No injection or drainage. NECK: Supple, trachea midline. No JVD or lymphadenopathy. CARDIOVASCULAR: irregular rate and rhythm without murmurs, gallops, or rubs. RESPIRATORY: diminished in bases Breath sounds equal bilaterally. No accessory muscle use. GASTROINTESTINAL: Abdomen soft, non-tender, nondistended. MUSCULOSKELETAL: No cyanosis, or edema. BACK: Nontender without obvious deformity. No CVA tenderness. Vital Signs Date Time Temp Pulse Resp B/P Pulse Ox O2 Delivery O2 Flow Rate FiO2 12/31/16 09:25 98.4 77 18 144/78 98 12/31/16 09:00 83 12/31/16 08:00 74 12/31/16 07:00 97 Room Air 12/31/16 07:00 83 12/31/16 07:00 98.4 78 16 144/72 97 12/31/16 06:10 73 12/31/16 05:00 68 12/31/16 04:33 96 Nasal Cannula 2.00 12/31/16 04:33 98.3 70 16 142/85 96 12/31/16 04:00 70 12/31/16 03:00 60 12/31/16 02:22 67 12/31/16 01:15 62 12/31/16 00:00 64 12/30/16 23:30 99 Nasal Cannula 2.00 12/30/16 23:10 68 12/30/16 23:10 97.7 69 16 90/62 99 12/30/16 22:06 64 12/30/16 21:00 72 12/30/16 20:00 70 12/30/16 19:20 98 Nasal Cannula 2.00 12/30/16 19:20 97.6 91 20 141/83 98 12/30/16 19:00 71 12/30/16 18:00 73 12/30/16 17:45 96 Nasal Cannula 2.00 12/30/16 17:00 70 12/30/16 16:00 69 12/30/16 15:00 66 12/30/16 15:00 97.5 65 17 111/49 96 12/30/16 15:00 Nasal Cannula 1.50 12/30/16 14:01 67 12/30/16 13:00 60 12/30/16 12:00 63 12/30/16 11:00 95 Nasal Cannula 1.50 12/30/16 11:00 67 12/30/16 11:00 98.2 65 16 86/52 95 12/30/16 10:40 98 Nasal Cannula 2.00 Result Diagram: 12/30/16 0548 12/30/1648 Telemetry: afib/ rate controlled (1) MO, acute, non ST segment elevation (2) CAD (coronary artery disease) (3) S/P CABG x 3 Plan: ASA, statin , BB , amiodarone PT/ OOB ambulate eval for rehab at discharge (4) DM (diabetes mellitus) Plan: on insulin sliding scale/ diabetic diet (5) Blood loss anemia Plan: s/p 3 units PRBC for EGD/ colonoscopy today on ferrous sulfate (6) Postoperative atrial fibrillation Plan: rate controlled, on amiodarone and BB start eliquis/ when cleared by GI (7) Heme positive stool (8) GI bleeding Problem Qualifiers (1) CAD (coronary artery disease): Qualified Code: I25.110 - Coronary artery disease involving [place] coronary artery of [place] heart with unstable angina pectoris Oanh Gary Dec 31, 2016 10:26
--- NOTE | 2016-12-31 10:47 | HHI.GIFU ---
Subjective Remarks feels ok, no new problems Objective Vitals I&O Vital Signs Date Time Temp Pulse Resp B/P Pulse Ox O2 Delivery O2 Flow Rate FiO2 12/31/16 10:25 67 16 108/57 97 12/31/16 10:20 70 16 105/56 95 12/31/16 10:15 98.4 67 16 95/49 93 12/31/16 09:25 98.4 77 18 144/78 98 12/31/16 09:00 83 12/31/16 08:00 74 12/31/16 07:00 97 Room Air 12/31/16 07:00 83 12/31/16 07:00 98.4 78 16 144/72 97 12/31/16 06:10 73 12/31/16 05:00 68 12/31/16 04:33 96 Nasal Cannula 2.00 12/31/16 04:33 98.3 70 16 142/85 96 12/31/16 04:00 70 12/31/16 03:00 60 12/31/16 02:22 67 12/31/16 01:15 62 12/31/16 00:00 64 12/30/16 23:30 99 Nasal Cannula 2.00 12/30/16 23:10 68 12/30/16 23:10 97.7 69 16 90/62 99 12/30/16 22:06 64 12/30/16 21:00 72 12/30/16 20:00 70 12/30/16 19:20 98 Nasal Cannula 2.00 12/30/16 19:20 97.6 91 20 141/83 98 12/30/16 19:00 71 12/30/16 18:00 73 12/30/16 17:45 96 Nasal Cannula 2.00 12/30/16 17:00 70 12/30/16 16:00 69 12/30/16 15:00 66 12/30/16 15:00 97.5 65 17 111/49 96 12/30/16 15:00 Nasal Cannula 1.50 12/30/16 14:01 67 12/30/16 13:00 60 12/30/16 12:00 63 12/30/16 11:00 95 Nasal Cannula 1.50 12/30/16 11:00 67 12/30/16 11:00 98.2 65 16 86/52 95 I/O 12/30/16 12/30/16 12/30/16 12/31/16 12/31/16 12/31/16 07:00 15:00 23:00 07:00 15:00 23:00 Intake Total 240 ml 840 ml 2000 ml 500 ml Output Total 350 ml 450 ml Balance -110 ml 390 ml 2000 ml 500 ml Intake Oral 240 ml 840 ml 2000 ml Other 500 ml Output Urine Total 350 ml 450 ml # Voids 4 # Bowel Movements 1 1 6 Laboratory Date/Time Procedure Status Source Growth 12/29/16 15:15 Stool Occult Blood (JETHRO) - Final Complete Stool Stool HEMOCCULT POSITIVE Physical Exam GENERAL: elderly white female, no acute distress HEENT: Normocephalic, atraumatic. PERRL, EOMI CARDIAC: Minimal chest wall tenderness surrounding recent wound site, no erythema, no drainage. S1, S2 heard, no murmur. PULM: clear BS throughout, no wheezes, no crackles. ABDOMEN: Soft, non tender, non distended. MUSCULOSKELETAL: Ecchymosis to bilateral UE from previous IV sites, no LE edema. NEURO: No gross deficits. Assessment and Plan Plan ASSESSMENT: - Anemia, Hemoccult (+) Stool. GI consulted for further evaluation with EGD/ Colonoscopy. Pt denies any active bleeding and HH was stable, so initially we were going to closely monitor and then consider EGD/Colonoscopy if active bleeding. However, received call from CVT, requesting GI workup so that patient can be started on Eliquis for atrial fibrillation. Spoke to Dr. Child- cleared for procedures from GI standpoint. Long discussion with patient and daughter- they are now agreeable. - CAD/MD. S/P CABG x 3, per CVT, Cardiology - Atrial fibrillation. CVT requesting GI workup so that pt can be started on Eliquis. Pt cleared from cardiology standpoint per Dr. Child. 12-31-16 doing ok, no sign of active bleed, EGD showed ulcer in the antrum Bx done, colon showed minimal erythema in the rectum Bx done and diverticulosis, no active bleed PLAN: - ROSEMARY - NPO after MN - continue PPI - Monitor HH - Supportive care - EGD in 2 months - if anticoagulation is needed then please use the lowest possible therapeutic does with close monitoring for GI bleed. Gina Romero MD Dec 31, 2016 10:47
[2016-12-31] MEDS: FERROUS SULFATE 325 MG (65 MG ELEMENTAL IRON) TAB PO SCH ×2 (11:55→16:10)
--- NOTE | 2016-12-31 12:56 | PD.CARD.PN ---
Subjective Subjective Remarks No chest pain, no shortness of breath Scoped by GI today, awaiting results Objective Medications Current Medications Medications (Trade) Dose Ordered Sig/Rey Route Start Time Stop Time Status Last Admin (NS Flush) 2 ml BID IV FLUSH 12/21/16 21:00 12/31/16 08:33 (NS Flush) 2 ml UNSCH PRN IV FLUSH 12/21/16 10:45 (Lipitor) 40 mg HS PO 12/21/16 21:00 12/30/16 20:42 (Tylenol) 650 mg Q4H PRN PO 12/23/16 16:15 12/29/16 09:32 (Aspirin Chew) 81 mg DAILY PO 12/26/16 09:00 12/31/16 08:32 (Tylenol) 650 mg Q4H PRN PO 12/25/16 14:15 (Tylenol Supp) 650 mg Q4H PRN RECTAL 12/25/16 14:15 (Zofran Inj) 4 mg Q6H PRN IV PUSH 12/25/16 14:15 12/27/16 08:38 Metoprolol Tartrate 2.5 mg 2.5 mg Q1H PRN IV PUSH 12/25/16 14:15 Magnesium Sulfate 2 gm/Sodium Chloride 104 ml @ 100 mls/hr UNSCH PRN IV 12/25/16 14:15 (Magnesium Sulfate Inj/NS Inj) 104 ml @ 50 mls/hr UNSCH PRN IV 12/25/16 14:15 12/26/16 07:51 (Calcium Chloride Inj) 0.5 gm UNSCH PRN IV 12/25/16 14:15 (Paxil) 20 mg DAILY PO 12/26/16 09:00 12/31/16 08:32 (Colace) 100 mg BID PO 12/26/16 21:00 12/29/16 09:30 (Theragran M Tab) 1 tab DAILY PO 12/26/16 09:00 12/30/16 08:49 (Milk Of Magnesia Liq) 30 ml DAILY PO 12/26/16 09:00 12/28/16 08:01 (Miralax) 17 gm DAILY PO 12/27/16 09:00 12/29/16 09:32 (Senokot) 8.6 mg HS PO 12/26/16 21:00 12/28/16 21:29 (D50w (Vial) Inj) 25 ml UNSCH PRN IV 12/26/16 08:45 (Glucagon Inj) 1 mg UNSCH PRN OTHER 12/26/16 08:45 (Pill Splitter) 1 ea UNSCH PRN OTHER 12/26/16 09:00 (Lopressor) 25 mg BID PO 12/26/16 21:00 12/31/16 08:32 (Ultram) 50 mg Q6H PRN PO 12/27/16 13:45 12/30/16 20:43 (Catapres) 0.2 mg Q12HR PO 12/28/16 11:00 12/31/16 08:32 (Dulcolax Supp) 10 mg DAILY PRN RECTAL 12/28/16 13:30 12/28/16 17:27 (Fleets Enema (Adult)) 133 ml DAILY PRN RECTAL 12/28/16 14:00 (Protonix) 20 mg DAILY PO 12/30/16 09:00 12/31/16 08:32 (Ferrous Sulfate) 325 mg BID@12,17 PO 12/29/16 17:19 12/31/16 11:55 (Benadryl) 25 mg HS PRN PO 12/29/16 21:15 (Cordarone) 200 mg BID PO 12/30/16 21:00 01/06/17 09:01 12/31/16 08:32 Amiodarone HCl 200 mg 200 mg BID PO 01/07/17 09:00 01/10/17 09:01 Lactated Ringer's 1,000 ml @ 0 mls/hr Q0M PRN IV 12/31/16 02:45 01/03/17 02:44 (NS 500 ml Inj) 500 ml @ 30 mls/hr [id number] PRN IV 12/31/16 02:45 01/03/17 02:44 Vital Signs / I&O Vital Signs Date Time Temp Pulse Resp B/P Pulse Ox O2 Delivery O2 Flow Rate FiO2 12/31/16 12:00 74 12/31/16 11:20 98 Nasal Cannula 2.00 12/31/16 11:00 97 Room Air 12/31/16 11:00 87 12/31/16 11:00 97.6 73 16 108/57 97 12/31/16 10:25 67 16 108/57 97 12/31/16 10:20 70 16 105/56 95 12/31/16 10:15 98.4 67 16 95/49 93 12/31/16 09:25 98.4 77 18 144/78 98 12/31/16 09:00 83 12/31/16 08:00 74 12/31/16 07:00 97 Room Air 12/31/16 07:00 83 12/31/16 07:00 98.4 78 16 144/72 97 12/31/16 06:10 73 12/31/16 05:00 68 12/31/16 04:33 96 Nasal Cannula 2.00 12/31/16 04:33 98.3 70 16 142/85 96 12/31/16 04:00 70 12/31/16 03:00 60 12/31/16 02:22 67 12/31/16 01:15 62 12/31/16 00:00 64 12/30/16 23:30 99 Nasal Cannula 2.00 12/30/16 23:10 68 12/30/16 23:10 97.7 69 16 90/62 99 12/30/16 22:06 64 12/30/16 21:00 72 12/30/16 20:00 70 12/30/16 19:20 98 Nasal Cannula 2.00 12/30/16 19:20 97.6 91 20 141/83 98 12/30/16 19:00 71 12/30/16 18:00 73 12/30/16 17:45 96 Nasal Cannula 2.00 12/30/16 17:00 70 12/30/16 16:00 69 12/30/16 15:00 66 12/30/16 15:00 97.5 65 17 111/49 96 12/30/16 15:00 Nasal Cannula 1.50 12/30/16 14:01 67 12/30/16 13:00 60 I/O 12/30/16 12/30/16 12/30/16 12/31/16 12/31/16 12/31/16 07:00 15:00 23:00 07:00 15:00 23:00 Intake Total 240 ml 840 ml 2000 ml 500 ml Output Total 350 ml 450 ml Balance -110 ml 390 ml 2000 ml 500 ml Intake Oral 240 ml 840 ml 2000 ml Other 500 ml Output Urine Total 350 ml 450 ml # Voids 4 # Bowel Movements 1 1 6 Physical Exam GENERAL: NAD, AAOx3 SKIN: Warm and dry. HEAD: Atraumatic. Normocephalic. EYES: Pupils equal and round. No scleral icterus. No injection or drainage. ENT: No nasal bleeding or discharge. Mucous membranes pink and moist. NECK: Trachea midline. No JVD. CARDIOVASCULAR: Irregularly irregular. Sternotomy with wound vac RESPIRATORY: No accessory muscle use. Decreased breath sounds bilaterally GASTROINTESTINAL: Abdomen soft, non-tender, nondistended. Hepatic and splenic margins not palpable. MUSCULOSKELETAL: Extremities without clubbing, cyanosis, or edema. No obvious deformities. Bilateral radial with ecchymosis, edema NEUROLOGICAL: Awake and alert. No obvious cranial nerve deficits. Motor grossly within normal limits. Five out of 5 muscle strength in the arms and legs. Normal speech. PSYCHIATRIC: Appropriate mood and affect; insight and judgment normal. Assessment and Plan Problem List: (1) GA, acute, non ST segment elevation (2) CAD (coronary artery disease) (3) S/P CABG x 3 (4) DM (diabetes mellitus) (5) Blood loss anemia (6) Postoperative atrial fibrillation (7) Heme positive stool (8) GI bleeding Assessment and Plan 1) s/p CABGx3 (VERDUZCO to LAD, SVG to OM, SVG to PDA) POD #6 2) ASA/Statin/BB/Amio 3) Heart rates controlled on BB/Amio 4) Anticoagulation held due to anemia, drop in Hgb and heme-occult positive stool 5) Afib [id number] = 5, would like to place on anticoagulation due to higher risk 6) Discussed with GI for EGD/Cscope, patient has been revascularized, afib controlled... may proceed 7) Depending on the results, may place on anticoagulation once able to by GI Problem Qualifiers (1) CAD (coronary artery disease): Qualified Code: I25.110 - Coronary artery disease involving [place] coronary artery of [place] heart with unstable angina pectoris Rubin Child DO Dec 31, 2016 12:56
[2017-01-01] MEDS ORDERED: APIX2.5T PO (11:44)
--- NOTE | 2017-01-01 13:33 | PD.CARD.PN ---
Subjective Subjective Remarks Patient not seen, discharged yesterday Assessment and Plan Problem List: (1) AR, acute, non ST segment elevation (2) CAD (coronary artery disease) (3) S/P CABG x 3 (4) DM (diabetes mellitus) (5) Blood loss anemia (6) Postoperative atrial fibrillation (7) Heme positive stool (8) GI bleeding Assessment and Plan 1) s/p CABGx3 (VERDUZCO to LAD, SVG to OM, SVG to PDA) POD #7 2) ASA/Statin/BB/Amio 3) Heart rates controlled on BB/Amio 4) Afib [id number] = 5, would like to place on anticoagulation due to higher risk 5) Discharged to SNF not on anticoagulation, GI states low dose anticoagulation due to recent ulcer 6) Discussed with CT surgery, will place on Eliquis 2.5mg BID for now... repeat EGD in 2 months, if healed then consider increasing to 5mg BID, has repeat CBC lab work per CT surgery Problem Qualifiers (1) CAD (coronary artery disease): Qualified Code: I25.110 - Coronary artery disease involving [place] coronary artery of [place] heart with unstable angina pectoris Rubin Child DO Jan 01, 2017 13:33
[2017-01-07] MEDS ORDERED: AMIODARONE 200 MG TAB PO SCH (09:00)
--- NOTE | 2017-01-07 09:58 | RSPPFT ---
DATE OF PROCEDURE: 12/23/16 COMMENTS: Spirometry shows FEV1 at 46% of predicted, FVC at 60% of predicted indicating severe airways obstruction. No reversibility noted after use of bronchodilator. IMPRESSION: 1. Severe airways obstruction. 2. No reversibility noted after bronchodilator treatment.
[2017-01-10] MEDS ORDERED: [UNRECOGNIZED DRUG - SUPPLY] (14:15)
[2017-01-10] MEDS ORDERED: GETGO ROLLING W1 MI1 (14:15)
[2017-01-13] MEDS ORDERED: PARO20TA2 PO (13:54)
[2017-01-13] MEDS ORDERED: METO25TA3 PO (13:54)
[2017-01-13] MEDS ORDERED: AMLO5 PO (13:54)
[2017-01-13] MEDS ORDERED: OMEP20TA PO (13:54)
[2017-01-13] MEDS ORDERED: AMIO200T PO (13:54)
[2017-01-13] MEDS ORDERED: FERR325T PO (13:54)
[2017-01-13] MEDS ORDERED: SENN1TAB PO (13:54)
[2017-01-13] MEDS ORDERED: ATOR40TA16 PO (13:54)
[2017-01-13] MEDS ORDERED: ULTR50TA5 PO (13:54)
[2017-01-13] MEDS ORDERED: APIX2.5T PO (13:54)
== END 2016-12-31 18:50 | DRG 234 ==
LOC: PHED 09:08 → PHEDA 10:44 → HCIS 12:55 → HCPC 12-25 15:33 → HCVR 12-25 18:14 → HCIN 12-26 15:36
PROVIDERS: ADMIT Hospitalist; ATTEND Hospitalist
PROC: 4A023N7 Measurement of Cardiac Sampling and Pressure, Left Heart, Percutaneous Approach (ICD-10-PCS; 2016-12-23)
PROC: B2111ZZ Fluoroscopy of Multiple Coronary Arteries using Low Osmolar Contrast (ICD-10-PCS; 2016-12-23)
PROC: B2151ZZ Fluoroscopy of Left Heart using Low Osmolar Contrast (ICD-10-PCS; 2016-12-23)
PROC: 021109W Bypass Coronary Artery, Two Arteries from Aorta with Autologous Venous Tissue, Open Approach (ICD-10-PCS; 2016-12-25)
PROC: 06BQ4ZZ Excision of Left Saphenous Vein, Percutaneous Endoscopic Approach (ICD-10-PCS; 2016-12-25)
PROC: 5A1221Z Performance of Cardiac Output, Continuous (ICD-10-PCS; 2016-12-25)
PROC: 02100Z9 Bypass Coronary Artery, One Artery from Left Internal Mammary, Open Approach (ICD-10-PCS; principal; 2016-12-25 10:17)
PROC: 0DB68ZX Excision of Stomach, Via Natural or Artificial Opening Endoscopic, Diagnostic (ICD-10-PCS; 2016-12-31)
PROC: 0DBP8ZX Excision of Rectum, Via Natural or Artificial Opening Endoscopic, Diagnostic (ICD-10-PCS; 2016-12-31)
PROC: 30233N1 Transfusion of Nonautologous Red Blood Cells into Peripheral Vein, Percutaneous Approach (ICD-10-PCS; 2016-12-31)
DX: I21.4 Non-ST elevation (NSTEMI) myocardial infarction (principal); E66.01 Morbid (severe) obesity due to excess calories; I11.9 Hypertensive heart disease without heart failure; I48.91 Unspecified atrial fibrillation; K92.2 Gastrointestinal hemorrhage, unspecified; Z68.31 Body mass index [BMI] 31.0-31.9, adult; I16.0 Hypertensive urgency; I97.89 Other postprocedural complications and disorders of the circulatory system, not elsewhere classified; R00.1 Bradycardia, unspecified; E11.9 Type 2 diabetes mellitus without complications; D50.0 Iron deficiency anemia secondary to blood loss (chronic); I25.110 Atherosclerotic heart disease of native coronary artery with unstable angina pectoris; E78.5 Hyperlipidemia, unspecified; I44.0 Atrioventricular block, first degree; K64.8 Other hemorrhoids; K21.9 Gastro-esophageal reflux disease without esophagitis; K57.30 Diverticulosis of large intestine without perforation or abscess without bleeding; M19.90 Unspecified osteoarthritis, unspecified site; K25.9 Gastric ulcer, unspecified as acute or chronic, without hemorrhage or perforation; K29.70 Gastritis, unspecified, without bleeding; K62.89 Other specified diseases of anus and rectum; Z87.891 Personal history of nicotine dependence; Z82.49 Family history of ischemic heart disease and other diseases of the circulatory system
CPT/HCPCS: 36430; 71010; 71250; 76937; 80048; 80053; 80061; 81001; 82272; 82550; 82552; 82948; 83036; 83735; 84484; 85014; 85018; 85025; 85027; 85610; 85730; 86850; 86900; 86901; 86920; 87641; 88305; 88312; 93005; 93306; 93458; 93571; 93880; 93970; 93998; 94002; 94010; 94150; 94640; 94664; 94667; 94668; C1769; C1893; C9399; J0131; J0153; J0282; J0360; J0690; J1610; J1644; J1650; J1815; J1817; J1940; J2150; J2250; J2270; J2370; J2405; J2440; J2720; J2930; J3010; J3370; J3475; J3480; J7050; P9016; P9045; P9047; Q9967